=== PATIENT | male | born 1950 | race Caucasian/White ===

== ENCOUNTER 2020-01-23 13:38 | Emergency (ER) | payer MEDICARE, OTHER ==
[2020-01-23] MEDS ORDERED: methylPREDNISolone SUCCINATE 125 MG/2 ML VIAL IVP STA (13:44)
[2020-01-23] MEDS ORDERED: ALBUTEROL 1 PUFF INH STA (13:44)
--- NOTE | 2020-01-23 13:51 | ED Physician Documentation ---
PD HPI URI - Stated complaint Stated Complaint: SOA - Chief complaint Chief Complaint: Resp - History obtained from History obtained from: Patient, Family - History of Present Illness Timing - onset: How many weeks ago (2) Timing duration: Weeks (2) Timing details: Gradual onset Pain level max: 0 Pain level now: 0 Associated symptoms: Dry cough, Dyspnea, Other (wheezing). No: Fever, Chills, Ear pain, Nasal congestion, Rhinorrhea Contributing factors: Other (states has had increased difficulty breathing since he went hunting at the end of december. Albuterol not helping at home.). No: Sick contact Improves by: Rest Worsened by: Activity, Breathing Similar symptoms before: Diagnosis (COPD. quit smoking 1 year ago.) Recently seen: Not recently seen Review of Systems Ten Systems: 10 systems reviewed and negative Constitutional: denies: Fever, Chills Nose: denies: Rhinorrhea / runny nose, Congestion GI: denies: Vomiting, Diarrhea Skin: denies: Rash Musculoskeletal: denies: Neck pain, Back pain PD PAST MEDICAL HISTORY - Past Medical History Past Medical History: Yes Cardiovascular: Hypertension, High cholesterol, Other (AAA) Respiratory: COPD - Present Medications Home Medications: Ambulatory Orders Medication Instructions Recorded Confirmed Albuterol Sulf [Ventolin Hfa 1 - 2 puffs INH Q4HR PRN #1 inhaler 01/23/20 Inhaler] predniSONE [Deltasone] 10 mg PO [id number] #42 tab 01/23/20 - Allergies Allergies/Adverse Reactions: Allergies Allergy/AdvReac Type Severity Reaction Status Date / Time No Known Drug Allergies Allergy Verified 01/23/20 13:52 PD ED PE NORMAL - Vitals Vital signs reviewed: Yes - General General: Alert and oriented X 3, Well developed/nourished - HEENT HEENT: Moist mucous membranes, Pharynx benign - Neck Neck: Supple, no meningeal sign - Cardiac Cardiac: RRR, Strong equal pulses - Respiratory Respiratory: Other (diffuse wheezing, mild resp distress.) - Abdomen Abdomen: Soft, Non tender, Non distended - Derm Derm: Warm and dry - Extremities Extremities: No edema - Neuro Neuro: Alert and oriented X 3 - Psych Psych: Normal mood, Normal affect Results - Vitals Vitals: Vital Signs - 24 hr 01/23/20 13:45 Temperature 36.8 C Heart Rate 104 H Respiratory 20 Rate Blood Pressure 139/89 H O2 Saturation 92 Oxygen O2 Source Room air - Labs Labs: Laboratory Tests 01/23/20 01/23/20 01/23/20 14:08 14:08 14:08 WBC 7.7 RBC 4.82 Hgb 15.9 Hct 47.2 MCV 97.9 H MCH 33.0 H MCHC 33.7 RDW 12.3 Plt Count 299 MPV 9.2 Neut # (Auto) 3.7 Lymph # (Auto) 1.9 Levy # (Auto) 0.6 Eos # (Auto) 1.4 H Baso # (Auto) 0.1 Absolute Nucleated RBC 0.00 Band Neuts % (Manual) Not Reportable Abnorm Lymph % (Manual) Not Reportable Nucleated RBC % 0.0 Neutrophils # (Manual) Not Reportable Lymphocytes # (Manual) Not Reportable Monocytes # (Manual) Not Reportable Eosinophils # (Manual) Not Reportable Basophils # (Manual) Not Reportable Differential Comment Y Manual Slide Review Indicated WBC Morphology NORMAL APPEARANCE Platelet Estimate NORMAL (130-450,000) Platelet Morphology NORMAL APPEARANCE RBC Morph Micro Appear NORMAL APPEARANCE Sodium 131 L Potassium 3.0 L Chloride 87 L Carbon Dioxide 33 H Anion Gap 11.0 BUN 7 Creatinine 0.7 Estimated GFR (MDRD) 112 Glucose 121 H Calcium 9.5 Nasal Adenovirus (PCR) NOT DETECTED Nasal B. parapertussis DNA (PCR) NOT DETECTED Nasal Coronavir 229E PCR NOT DETECTED Nasal Coronavir HKU1 PCR NOT DETECTED Nasal Coronavir NL63 PCR NOT DETECTED Nasal Coronavir OC43 PCR NOT DETECTED Nasal Enterovir/Rhinovir PCR NOT DETECTED Nasal Influenza B PCR NOT DETECTED Nasal Influenza A PCR NOT DETECTED Nasal Parainfluen 1 PCR NOT DETECTED Nasal Parainfluen 2 PCR NOT DETECTED Nasal Parainfluen 3 PCR NOT DETECTED Nasal Parainfluen 4 PCR NOT DETECTED Nasal RSV (PCR) NOT DETECTED Nasal B.pertussis DNA PCR NOT DETECTED Nasal C.pneumoniae (PCR) NOT DETECTED Sean Human Metapneumo PCR NOT DETECTED Nasal M.pneumoniae (PCR) NOT DETECTED Nasal SARS-CoV-2 (PCR) NOT DETECTED - Rads (name of study) cxr Radiology: Prelim report reviewed, EMP read contemporaneously, See rad report (No acute cardiopulmonary disease process. ) PD MEDICAL DECISION MAKING - ED course Complexity details: reviewed results, re-evaluated patient, considered differential, d/w patient, d/w family ED course: Patient feels much better after albuterol, Solu-Medrol and prednisone. No significant lab abnormalities. No hypoxia. No respiratory distress. Negative Covid. Negative influenza. No pneumonia. Will place on steroid taper for home and refill his albuterol. Patient and family counseled regarding signs and symptoms for which I believe and urgent re-evaluation would be necessary. Patient with good understanding of and agreement to plan and is comfortable going home at this time This document was made in part using voice recognition software. While efforts are made to proofread this document, sound alike and grammatical errors may occur. Departure - Departure Disposition: Home, Self Care Clinical Impression: Wheezing Condition: Good Instructions: ED Wheezing Follow-Up: CHARLOTTE PURDY ARNP [Primary Care Provider] - Within 1 week Prescriptions: Albuterol Sulf [Ventolin Hfa Inhaler] 1 - 2 puffs INH Q4HR PRN #1 inhaler PRN Reason: Shortness Of Air/Wheezing predniSONE [Deltasone] 10 mg PO [id number] #42 tab Comments: Use the medications as prescribed. Return if you worsen. Follow-up with your doctor for further care.
[2020-01-23 14:29] LABS: BASOPHILS # (AUTO) 0.1 10^3/uL (0.0-0.1); BASOPHILS % (AUTO) 1.6 %; EOSINOPHILS # (AUTO) 1.4 10^3/uL (0.0-0.7); EOSINOPHILS % (AUTO) 17.8 %; HGB - HEMOGLOBIN 15.9 g/dL (14.0-18.0); LYMPHOCYTES # (AUTO) 1.9 10^3/uL (1.5-3.5); LYMPHOCYTES % (AUTO) 25.1 %; MEAN CORPUSCULAR HGB CONC 33.7 g/dL (32.0-36.0); MEAN CORPUSCULAR VOLUME 97.9 fL (80.0-94.0); MEAN PLATELET VOLUME 9.2 fL (7.4-11.4); MONOCYTES # (AUTO) 0.6 10^3/uL (0.0-1.0); MONOCYTES % (AUTO) 7.6 %; NEUTROPHILS # (AUTO) 3.7 10^3/uL (1.5-6.6); NEUTROPHILS % (AUTO) 47.6 %; PLT - PLATELET COUNT 299 10^3/uL (130-450); RED BLOOD COUNT 4.82 10^6/uL (4.70-6.10); RED CELL DISTRIBUTION WIDTH 12.3 % (12.0-15.0); WHITE BLOOD COUNT 7.7 x10^3/uL (4.8-10.8)
--- NOTE | 2020-01-23 14:33 | XRAY Report ---
PROCEDURE: Chest 1 View X-Ray INDICATIONS: chest pain TECHNIQUE: One view of the chest was acquired. COMPARISON: None FINDINGS: Surgical changes and devices: None. Lungs and pleura: No pleural effusions or pneumothorax. Lungs are clear. Mediastinum: Mediastinal contours appear normal. Heart size is normal. Bones and chest wall: No suspicious bony lesions. Overlying soft tissues appear unremarkable. IMPRESSION: No acute cardiopulmonary disease process. Reviewed by: Opal Cronin MD, PhD on 01/23/2020 2:31 PM PST Approved by: Opal Cronin MD, PhD on 01/23/2020 2:31 PM PST Station ID: [id number]
[2020-01-23 14:37] LABS: CALCIUM 9.5 mg/dL (8.5-10.3); CREATININE 0.7 mg/dL (0.6-1.2)
[2020-01-23 14:46] LABS: DIFFERENTIAL COMMENT Y; PLATELET ESTIMATE, MANUAL NORMAL (130-450,000) (NORMAL); PLATELET MORPHOLOGY NORMAL APPEARANCE (NORMAL); RBC MORPHOLOGY (MULTIPLE) NORMAL APPEARANCE (NORMAL)
[2020-01-23 15:46] LABS: C. PNEUMONIAE- RESP PCR PANEL NOT DETECTED
[2020-01-23 17:10] VITALS: BP 136/94
== END 2020-01-23 17:21 | disposition home or self-care (01) ==
LOC: ED 13:38
DX: R06.2 Wheezing (principal); J44.9 Chronic obstructive pulmonary disease, unspecified; Z87.891 Personal history of nicotine dependence; I10 Essential (primary) hypertension; Z20.828 Contact with and (suspected) exposure to other viral communicable diseases
CPT/HCPCS: 0202U; 36415; 71045; 80048; 85025; 94640; 99284

== ENCOUNTER 2022-07-27 22:00 | Outpatient (CLI) | payer MEDICARE, OTHER | END 2022-07-27 23:59 | disposition EMS.NT | LOC: EMS 22:00 | DX: Z03.89 Encounter for observation for other suspected diseases and conditions ruled out (principal) ==

== ENCOUNTER 2022-09-08 20:19 | Outpatient (CLI) | payer MEDICARE, OTHER | END 2022-09-08 20:20 | disposition critical access hospital (66) | LOC: EMS 20:19 | DX: R41.0 Disorientation, unspecified (principal); R27.8 Other lack of coordination; F10.10 Alcohol abuse, uncomplicated | CPT/HCPCS: A0425; A0429 ==

== ENCOUNTER 2022-09-08 20:31 | Emergency (ER) | payer MEDICARE, OTHER ==
[2022-09-08] MEDS ORDERED: TETANUS/DIPHTHERIA/PERTUSSIS 0.5 ML SYRINGE IM ONE (20:35)
--- NOTE | 2022-09-08 20:36 | ED Physician Documentation ---
PD HPI Fall - Stated complaint Stated Complaint: GLF - History obtained from History obtained from: Patient, EMS - Additional information Additional information: 72-year-old gentleman with history of coronary disease was drinking tonight. He recently lost his daughter. He fell, he does not remember falling, but reportedly EMS states that the heard a crash and went in the room and found him. He states he has no injuries and no pain. PD PAST MEDICAL HISTORY - Past Medical History Cardiovascular: Hypertension, High cholesterol, Other (AAA) Respiratory: COPD - Present Medications Home Medications: Ambulatory Orders Medication Instructions Recorded Confirmed Albuterol Sulf [Ventolin Hfa 1 - 2 puffs INH Q4HR PRN #1 inhaler 01/23/20 Inhaler] predniSONE [Deltasone] 10 mg PO [id number] #42 tab 01/23/20 - Allergies Allergies/Adverse Reactions: Allergies Allergy/AdvReac Type Severity Reaction Status Date / Time No Known Drug Allergies Allergy Verified 01/23/20 13:52 PD ED PE NORMAL - Vitals Vital signs reviewed: Yes - General General: Other (Intoxicated gentleman who smells of alcohol in no distress. Alert and oriented to person and place and events but not time) - HEENT HEENT: PERRL, EOMI (With significant nystagmus) - Neck Neck: No bony TTP (But maintained in a c-collar pending imaging given intoxication) - Cardiac Cardiac: RRR, No murmur - Respiratory Respiratory: No respiratory distress, Clear bilaterally - Abdomen Abdomen: Non tender - Back Back: No CVA TTP, No spinal TTP - Derm Derm: Normal color, Warm and dry - Extremities Extremities: Other (Small skin tear right lateral forearm, no tenderness or limited range of motion there. Remainder of extremities nontender with full range of motion.) - Neuro Eye Opening: Spontaneous Motor: Obeys Commands Verbal: Confused (Slight) GCS Score: 14 Results - Vitals Vitals: Vital Signs - 24 hr 09/08/22 09/08/22 09/09/22 20:38 22:41 01:36 Temperature 36.2 C L Heart Rate 72 85 89 Respiratory 16 18 16 Rate Blood Pressure 126/79 129/85 H 128/82 H O2 Saturation 100 93 95 09/09/22 09/09/22 09/09/22 02:38 04:00 04:40 Temperature Heart Rate 85 82 89 Respiratory 17 18 19 Rate Blood Pressure 128/84 H 110/71 124/72 O2 Saturation 95 91 L 95 09/09/22 09/09/22 06:00 08:03 Temperature Heart Rate 89 102 H Respiratory 18 18 Rate Blood Pressure 138/82 H 144/93 H O2 Saturation 91 L 94 Oxygen O2 Source Room air - Labs Labs: Laboratory Tests 09/08/22 09/08/22 09/08/22 20:46 20:46 20:46 WBC 9.3 RBC 4.40 L Hgb 14.6 Hct 41.1 L MCV 93.4 MCH 33.2 H MCHC 35.5 RDW 12.7 Plt Count 230 MPV 8.7 Neut # (Auto) 3.9 Lymph # (Auto) 4.1 H Lynn # (Auto) 0.9 Eos # (Auto) 0.3 Baso # (Auto) 0.1 Absolute Nucleated RBC 0.00 Nucleated RBC % 0.0 PT 11.6 INR 1.1 Sodium 128 L Potassium 2.4 L* Chloride 84 L Carbon Dioxide 31 Anion Gap 13.0 BUN 9 Creatinine 0.7 Estimated GFR (MDRD) 111 Glucose 111 H Calcium 8.6 Total Bilirubin 0.7 AST 27 ALT 27 Alkaline Phosphatase 86 Total Protein 7.9 Albumin 3.6 Globulin 4.3 H Albumin/Globulin Ratio 0.8 L Ethyl Alcohol 282.4 09/09/22 04:49 WBC RBC Hgb Hct MCV MCH MCHC RDW Plt Count MPV Neut # (Auto) Lymph # (Auto) Lynn # (Auto) Eos # (Auto) Baso # (Auto) Absolute Nucleated RBC Nucleated RBC % PT INR Sodium 130 L Potassium 2.8 L Chloride 91 L Carbon Dioxide 29 Anion Gap 10.0 BUN 8 Creatinine 0.6 Estimated GFR (MDRD) 133 Glucose 97 Calcium 8.2 L Total Bilirubin AST ALT Alkaline Phosphatase Total Protein Albumin Globulin Albumin/Globulin Ratio Ethyl Alcohol 87.9 - Rads (name of study) CT of the head and cervical spine are without acute traumatic injuries. He does have mild atrophy and chronic microvascular ischemic changes in the b Relevant Findings:: Final report received, EMP independent interpretation of test PD Medical Decision Making - ED course ED course: 72-year-old gentleman presents intoxicated with ground-level fall. The only obvious injury is a skin tear on the right forearm which was cleansed and dressed. Out of an abundance of caution he was sent for CT scans of the head and cervical spine. Labs were notable for significant hypokalemia at 2.4 with mild hyponatremia and a blood alcohol of 282 consistent with intoxication. I asked the nurse to place an IV, give him IV fluids, thiamine, and 4 potassium riders overnight. I spoke with his by phone and they plan to come pick him up in the morning. She does not drive. Care to the overnight emergency y sician at shift change pending sobriety and family in the morning. Departure - Departure Clinical Impression: Ground-level fall, Hypokalemia Alcohol intoxication Qualifiers: Complication of substance-induced condition: with delirium Qualified Code(s): F10.921 - Alcohol use, unspecified with intoxication delirium Skin tear of right forearm without complication Qualifiers: Encounter type: initial encounter Qualified Code(s): S51.811A - Laceration without foreign body of right forearm, initial encounter Condition: Good Record reviewed to determine appropriate education?: Yes Instructions: ED Alcohol Intoxication Comments: You were seen tonight for a fall after becoming significantly intoxicated on alcohol with a blood alcohol of 282. The only obvious injury was a skin tear on the right forearm. That just needs really soap and water once a day and a Band-Aid. Out of an abundance of caution we did CAT scans of your head and neck. Also your labs were notable for low potassium which is not uncommon when you have been drinking heavily, and this was replaced with IV potassium and your sodium was mildly low to you were given some sodium chloride. Call your doctor to arrange a follow-up appointment, make the next available appointment. In the interim, return anytime if worse or if new symptoms develop.
[2022-09-08 20:53] LABS: BASOPHILS # (AUTO) 0.1 10^3/uL (0.0-0.1); EOSINOPHILS # (AUTO) 0.3 10^3/uL (0.0-0.7); HCT - HEMATOCRIT 41.1 % (42.0-52.0); HGB - HEMOGLOBIN 14.6 g/dL (14.0-18.0); LYMPHOCYTES # (AUTO) 4.1 10^3/uL (1.5-3.5); MEAN CORPUSCULAR HEMOGLOBIN 33.2 pg (27.0-31.0); MEAN CORPUSCULAR HGB CONC 35.5 g/dL (32.0-36.0); MEAN CORPUSCULAR VOLUME 93.4 fL (80.0-94.0); MEAN PLATELET VOLUME 8.7 fL (7.4-11.4); MONOCYTES # (AUTO) 0.9 10^3/uL (0.0-1.0); MONOCYTES % (AUTO) 9.5 %; NEUTROPHILS # (AUTO) 3.9 10^3/uL (1.5-6.6); NEUTROPHILS % (AUTO) 42.3 %; PLT - PLATELET COUNT 230 10^3/uL (130-450); RED CELL DISTRIBUTION WIDTH 12.7 % (12.0-15.0); WHITE BLOOD COUNT 9.3 x10^3/uL (4.8-10.8)
[2022-09-08 20:58] LABS: INR 1.1 (0.8-1.2); PT - PROTHROMBIN TIME 11.6 secs (9.9-12.6)
[2022-09-08 21:06] LABS: ALBUMIN 3.6 g/dL (3.2-5.5); ALBUMIN/GLOBULIN RATIO 0.8 (1.0-2.2); BILIRUBIN,TOTAL 0.7 mg/dL (0.2-1.0); CALCIUM 8.6 mg/dL (8.5-10.3); CREATININE 0.7 mg/dL (0.6-1.2); ETOH - ETHANOL 282.4 mg/dL; TOTAL PROTEIN 7.9 g/dL (6.7-8.2)
[2022-09-08 21:07] LABS: POTASSIUM 2.4 mmol/L (3.5-5.0)
[2022-09-08] MEDS ORDERED: SODIUM CHLORIDE 0.9% 1,000 ML IV STA (21:10)
[2022-09-08] MEDS ORDERED: POTASSIUM CHLOR 10 MEQ/100 ML 10 MEQ/100 ML BAG IV STA ×4 (21:11→21:12)
[2022-09-08] MEDS ORDERED: THIAMINE INJ 100 MG in SODIUM CHLORIDE 0.9% 50 ML IV STA (21:14)
--- NOTE | 2022-09-08 21:21 | CT Report ---
PROCEDURE: HEAD WO INDICATIONS: Possible head injury, intoxicated TECHNIQUE: Noncontrast 4.5 mm thick angled axial sections acquired from the foramen magnum to the vertex. For r adiation dose reduction, the following was used: automated exposure control, adjustment of mA and/or kV according to patient size. COMPARISON: CT cervical spine 09/08/2022 FINDINGS: Image quality: Excellent. The ventricular system and cortical sulci demonstrate atrophy, consistent for patient's stated age. There are areas of hypodensity in the periventricular and subcortical white matter. There is no acut e intra or extra-axial fluid collection. No acute hemorrhage, mass lesion or midline shift. Brainst em is unremarkable. Globes are symmetrical. Sinuses are aerated. Osseous structures are intact. IMPRESSION: 1. No acute intracranial process. 2. Mild atrophy and chronic microvascular ischemic changes. Mild to moderate Reviewed by: Garima Campoverde MD on 09/08/2022 9:20 PM PDT Approved by: Garima Campoverde MD on 09/08/2022 9:20 PM PDT Station ID: [id number]
--- NOTE | 2022-09-08 21:22 | CT Report ---
PROCEDURE: CERVICAL SPINE WO INDICATIONS: Possible head injury, intoxicated TECHNIQUE: Noncontrast 3 mm thick sections acquired from the skull base to the T4 level. Sagittal and coronal r eformats were then constructed. For radiation dose reduction, the following was used: automated exp osure control, adjustment of mA and/or kV according to patient size. COMPARISON: None. FINDINGS: Image quality: Excellent. Bones: No fractures or dislocations. Visualized superior ribs are intact. Multilevel degenerative changes. Soft tissues: Prevertebral soft tissues are normal in thickness. No paravertebral hematomas. No ap ical pneumothoraces. IMPRESSION: No visualized fracture. Reviewed by: Garima Campoverde MD on 09/08/2022 9:21 PM PDT Approved by: Garima Campoverde MD on 09/08/2022 9:21 PM PDT Station ID: [id number]
[2022-09-08] MEDS ORDERED: THIAMINE 100 MG/1 ML 2 ML MDV ONE ×2 (21:27→21:48)
[2022-09-09 05:17] LABS: CALCIUM 8.2 mg/dL (8.5-10.3); CREATININE 0.6 mg/dL (0.6-1.2); ETOH - ETHANOL 87.9 mg/dL; POTASSIUM 2.8 mmol/L (3.5-5.0)
[2022-09-09] MEDS ORDERED: POTASSIUM BICARB 25 MEQ TABLET PO STA ×2 (05:22→09:33)
[2022-09-09] MEDS ORDERED: POTASSIUM CHLOR 10 MEQ/100 ML 10 MEQ/100 ML BAG IV STA (05:23)
[2022-09-09 08:06] VITALS: BP 144/93
--- NOTE | 2022-09-09 09:38 | ED Physician Documentation ---
ED Addendum - Addendum Addendum: 72-year-old male highly intoxicated presented to the emergency department with a fall last night he has metabolized and is now ready to be discharged home in the care of family members. He did have low potassium he was administered potassium by vein and orally we have added additional potassium here this morning right before discharge and patient is instructed to increase potassium in his diet. 09/09/22 Impression: GLF, alcohol intoxication, hypokalemia, skin tear right forearm. Plan: metabolism, potassium supplementation, home with family, followup with NICOLE.
== END 2022-09-09 09:48 | disposition home or self-care (01) ==
LOC: EDUNIT# → ED 20:31
DX: S51.811A Laceration without foreign body of right forearm, initial encounter (principal); W18.30XA Fall on same level, unspecified, initial encounter; E87.6 Hypokalemia; F10.121 Alcohol abuse with intoxication delirium; Y90.8 Blood alcohol level of 240 mg/100 ml or more; I10 Essential (primary) hypertension; E78.00 Pure hypercholesterolemia, unspecified; J44.9 Chronic obstructive pulmonary disease, unspecified; Z23 Encounter for immunization
CPT/HCPCS: 36415; 70450; 72125; 80048; 80053; 85025; 85610; 90471; 90715; 96365; 96366; 96375; 99284; A9270; G0480; J3411; 80320

== ENCOUNTER 2022-11-14 23:16 | Outpatient (CLI) | payer MEDICARE, OTHER | END 2022-11-14 23:59 | disposition EMS.NT | LOC: EMS 23:16 | DX: Z03.89 Encounter for observation for other suspected diseases and conditions ruled out (principal) ==

== ENCOUNTER 2023-08-01 14:15 | Inpatient (IN) | payer MEDICARE, OTHER ==
--- NOTE | 2023-08-01 14:24 | ED Physician Documentation ---
History of Present Illness - Stated complaint Stated Complaint: FAST HR - Additonal information Additional information: 73-year-old male presenting the emergency department with chief complaint of fatigue. Excessively fatigued for the last few days with increased swelling in his lower EXTR extremities. Reports chronic cough and chronic shortness of breath. EMS found him to be in atrial fibrillation. He endorses for history of coronary artery disease with 6 stents. Denies any history of heart failure. Review of Systems Constitutional: reports: Fatigue. denies: Fever Eyes: denies: Loss of vision Ears: denies: Loss of hearing Nose: denies: Rhinorrhea / runny nose Throat: denies: Dental pain / toothache Cardiac: reports: Palpitations Respiratory: reports: Dyspnea, Cough GI: denies: Abdominal Pain, Nausea, Vomiting, Constipation : reports: Dysuria Skin: reports: Rash Musculoskeletal: reports: Neck pain Neurologic: reports: Generalized weakness PD PAST MEDICAL HISTORY - Past Medical History Cardiovascular: Hypertension, High cholesterol, Other (AAA) Respiratory: COPD - Present Medications Home Medications: Ambulatory Orders Medication Instructions Recorded Confirmed Albuterol Sulf [Ventolin Hfa 1 - 2 puffs INH Q4HR PRN #1 inhaler 01/23/20 Inhaler] predniSONE [Deltasone] 10 mg PO [id number] #42 tab 01/23/20 Aspirin EC [Ecotrin] 81 mg PO DAILY 08/01/23 Atorvastatin [Lipitor] 10 mg PO HS 08/01/23 Cetirizine [ZyrTEC] 10 mg PO DAILY 08/01/23 Fluticasone Propionate 1 spray NICOLE DAILY 08/01/23 NIFEdipine [Nifedipine ER] 90 mg PO DAILY 08/01/23 Omeprazole 40 mg PO BID 08/01/23 Potassium Chloride 10 meq PO DAILY 08/01/23 hydroCHLOROthiazide [Hydrodiuril] 12.5 mg PO DAILY 08/01/23 - Allergies Allergies/Adverse Reactions: Allergies Allergy/AdvReac Type Severity Reaction Status Date / Time No Known Drug Allergies Allergy Verified 08/01/23 14:36 PD ED PE NORMAL - General General: Alert and oriented X 3, No acute distress, Well developed/nourished - HEENT HEENT: Atraumatic, PERRL, EOMI, Ears normal, Moist mucous membranes, Pharynx benign - Neck Neck: Supple, no meningeal sign, No bony TTP, No adenopathy, Thyroid normal, No JVD - Cardiac Cardiac: Other (Irregularly irregular) - Respiratory Respiratory: Other (Increased work of breathing) - Abdomen Abdomen: Normal bowel sounds, Non tender, Other (Large periumbilical hernia, nontender and freely mobile) Results - Vitals Vitals: Vital Signs - 24 hr 08/01/23 08/01/23 08/01/23 14:23 14:36 15:05 Temperature 36.3 C L Heart Rate 140 H 137 H 140 H Respiratory 36 H 30 H Rate Blood Pressure 123/113 H 118/96 H O2 Saturation 76 L 86 L If not protocol 16 : Oxygen Flow, liters/minute 08/01/23 08/01/23 08/01/23 15:06 15:30 16:00 Temperature Heart Rate 120 H 110 H 123 H Respiratory 26 H 24 27 H Rate Blood Pressure 104/85 H 103/91 H 114/92 H O2 Saturation 26 L 89 L If not protocol : Oxygen Flow, liters/minute 08/01/23 08/01/23 16:09 16:30 Temperature Heart Rate 112 H 129 H Respiratory 21 Rate Blood Pressure 123/103 H O2 Saturation 89 L If not protocol : Oxygen Flow, liters/minute Oxygen O2 Source BIPAP - Labs Labs: Laboratory Tests 08/01/23 08/01/23 08/01/23 14:48 14:48 14:48 WBC 7.5 RBC 4.59 L Hgb 14.4 Hct 45.2 MCV 98.5 H MCH 31.4 H MCHC 31.9 L RDW 15.2 H Plt Count 209 MPV 10.6 Neut # (Auto) 5.3 Lymph # (Auto) 1.3 L [place] # (Auto) 0.7 Eos # (Auto) 0.1 Baso # (Auto) 0.1 Absolute Nucleated RBC 0.00 Nucleated RBC % 0.0 PT 15.2 H INR 1.4 H Bld Gas Analysis Time Sample Site ABG pH ABG pCO2 ABG pO2 ABG HCO3 ABG Total CO2 ABG O2 Saturation ABG Base Excess Harvinder Test O2 Delivery Device FiO2 EPAP IPAP Sodium 139 Potassium 3.7 Chloride 98 L Carbon Dioxide 33 H Anion Gap 8.0 BUN 31 H Creatinine 0.8 Estimated GFR (MDRD) 95 Glucose 101 Calcium 9.3 Magnesium 1.8 Total Bilirubin 0.8 AST 25 ALT 36 Alkaline Phosphatase 74 Troponin I High Sens B-Natriuretic Peptide Total Protein 7.2 Albumin 3.7 Globulin 3.5 Albumin/Globulin Ratio 1.1 Lipase 28 Urine Color Urine Clarity Urine pH Ur Specific [place] Urine Protein Urine Glucose (UA) Urine Ketones Urine Occult Blood Urine Nitrite Urine Bilirubin Urine Urobilinogen Ur Leukocyte Esterase Ur Microscopic Review Urine Culture Comments Nasal Adenovirus (PCR) Nasal B. parapertussis DNA (PCR) Nasal Coronavir 229E PCR Nasal Coronavir HKU1 PCR Nasal Coronavir NL63 PCR Nasal Coronavir OC43 PCR Nasal Enterovir/Rhinovir PCR Nasal Influenza B PCR Nasal Influenza A PCR Nasal Parainfluen 1 PCR Nasal Parainfluen 2 PCR Nasal Parainfluen 3 PCR Nasal Parainfluen 4 PCR Nasal RSV (PCR) Nasal B.pertussis DNA PCR Nasal C.pneumoniae (PCR) Nicole Human Metapneumo PCR Nasal M.pneumoniae (PCR) Nasal SARS-CoV-2 (PCR) Urine Opiates Screen Ur Buprenorphine Scrn Ur Oxycodone Screen Urine Methadone Screen Ur Barbiturates Screen Ur Tricyclics Screen Ur Phencyclidine Scrn Ur Amphetamine Screen U Methamphetamines Scrn U Benzodiazepines Scrn Urine Cocaine Screen U Cannabinoids Screen Ur Drug Screen Comment Ethyl Alcohol < 10.0 08/01/23 08/01/23 08/01/23 14:48 14:48 15:52 WBC RBC Hgb Hct MCV MCH MCHC RDW Plt Count MPV Neut # (Auto) Lymph # (Auto) [place] # (Auto) Eos # (Auto) Baso # (Auto) Absolute Nucleated RBC Nucleated RBC % PT INR Bld Gas Analysis Time 1600 Sample Site LEFT BRACHIAL ABG pH 7.39 ABG pCO2 53 H ABG pO2 63 L ABG HCO3 31.4 H ABG Total CO2 33.0 H ABG O2 Saturation 91 L ABG Base Excess 5.0 H Harvinder Test NOT APPLICABLE O2 Delivery Device BiPAP FiO2 40.00 EPAP 4 IPAP 8 Sodium Potassium Chloride Carbon Dioxide Anion Gap BUN Creatinine Estimated GFR (MDRD) Glucose Calcium Magnesium Total Bilirubin AST ALT Alkaline Phosphatase Troponin I High Sens 3.1 B-Natriuretic Peptide 597 H Total Protein Albumin Globulin Albumin/Globulin Ratio Lipase Urine Color Urine Clarity Urine pH Ur Specific [place] Urine Protein Urine Glucose (UA) Urine Ketones Urine Occult Blood Urine Nitrite Urine Bilirubin Urine Urobilinogen Ur Leukocyte Esterase Ur Microscopic Review Urine Culture Comments Nasal Adenovirus (PCR) Nasal B. parapertussis DNA (PCR) Nasal Coronavir 229E PCR Nasal Coronavir HKU1 PCR Nasal Coronavir NL63 PCR Nasal Coronavir OC43 PCR Nasal Enterovir/Rhinovir PCR Nasal Influenza B PCR Nasal Influenza A PCR Nasal Parainfluen 1 PCR Nasal Parainfluen 2 PCR Nasal Parainfluen 3 PCR Nasal Parainfluen 4 PCR Nasal RSV (PCR) Nasal B.pertussis DNA PCR Nasal C.pneumoniae (PCR) Nicole Human Metapneumo PCR Nasal M.pneumoniae (PCR) Nasal SARS-CoV-2 (PCR) Urine Opiates Screen Ur Buprenorphine Scrn Ur Oxycodone Screen Urine Methadone Screen Ur Barbiturates Screen Ur Tricyclics Screen Ur Phencyclidine Scrn Ur Amphetamine Screen U Methamphetamines Scrn U Benzodiazepines Scrn Urine Cocaine Screen U Cannabinoids Screen Ur Drug Screen Comment Ethyl Alcohol 08/01/23 08/01/23 15:58 16:00 WBC RBC Hgb Hct MCV MCH MCHC RDW Plt Count MPV Neut # (Auto) Lymph # (Auto) [place] # (Auto) Eos # (Auto) Baso # (Auto) Absolute Nucleated RBC Nucleated RBC % PT INR Bld Gas Analysis Time Sample Site ABG pH ABG pCO2 ABG pO2 ABG HCO3 ABG Total CO2 ABG O2 Saturation ABG Base Excess Harvinder Test O2 Delivery Device FiO2 EPAP IPAP Sodium Potassium Chloride Carbon Dioxide Anion Gap BUN Creatinine Estimated GFR (MDRD) Glucose Calcium Magnesium Total Bilirubin AST ALT Alkaline Phosphatase Troponin I High Sens B-Natriuretic Peptide Total Protein Albumin Globulin Albumin/Globulin Ratio Lipase Urine Color DARK YELLOW Urine Clarity CLEAR Urine pH 6.0 Ur Specific [place] 1.020 Urine Protein TRACE Urine Glucose (UA) NEGATIVE Urine Ketones NEGATIVE Urine Occult Blood NEGATIVE Urine Nitrite NEGATIVE Urine Bilirubin NEGATIVE Urine Urobilinogen 1 (NORMAL) Ur Leukocyte Esterase NEGATIVE Ur Microscopic Review NOT INDICATED Urine Culture Comments NOT INDICATED Nasal Adenovirus (PCR) NOT DETECTED Nasal B. parapertussis DNA (PCR) NOT DETECTED Nasal Coronavir 229E PCR NOT DETECTED Nasal Coronavir HKU1 PCR NOT DETECTED Nasal Coronavir NL63 PCR NOT DETECTED Nasal Coronavir OC43 PCR NOT DETECTED Nasal Enterovir/Rhinovir PCR NOT DETECTED Nasal Influenza B PCR NOT DETECTED Nasal Influenza A PCR NOT DETECTED Nasal Parainfluen 1 PCR NOT DETECTED Nasal Parainfluen 2 PCR NOT DETECTED Nasal Parainfluen 3 PCR NOT DETECTED Nasal Parainfluen 4 PCR NOT DETECTED Nasal RSV (PCR) NOT DETECTED Nasal B.pertussis DNA PCR NOT DETECTED Nasal C.pneumoniae (PCR) NOT DETECTED Nicole Human Metapneumo PCR NOT DETECTED Nasal M.pneumoniae (PCR) NOT DETECTED Nasal SARS-CoV-2 (PCR) NOT DETECTED Urine Opiates Screen NEGATIVE Ur Buprenorphine Scrn NEGATIVE Ur Oxycodone Screen NEGATIVE Urine Methadone Screen NEGATIVE Ur Barbiturates Screen NEGATIVE Ur Tricyclics Screen NEGATIVE Ur Phencyclidine Scrn NEGATIVE Ur Amphetamine Screen NEGATIVE U Methamphetamines Scrn NEGATIVE U Benzodiazepines Scrn NEGATIVE Urine Cocaine Screen NEGATIVE U Cannabinoids Screen NEGATIVE Ur Drug Screen Comment CUTOFF CONC BELOW: Ethyl Alcohol PD Medical Decision Making - ED course ED course: Patient 73-year-old male with past medical significant for coronary artery disease presenting with rapid heart rate, shortness of breath. Tachypneic, tachycardic on arrival to the emergency department. Initial EKG demonstrates atrial fibrillation with rapid ventricular response. This appears to be a new diagnosis per patient. Oxygen saturations were difficult to obtain accurately on the patient however he appeared to have persistent low-level hypoxia. He notably had significant crackles in his lower lung bases as well as significant amount of edema in his lower extremities. Overall his clinical presentation was most consistent with acute heart failure with pulmonary congestion versus edema. He was escalated to BiPAP in the emergency department for work of breathing and adequate oxygen support. Oxygen saturations remained difficult to obtain accurately however when they were obtained he would however at approximately 88 to 92%. His blood gas similarly demonstrated a low level hypoxia with oxygen saturation 91%. He was otherwise mentating well in the emergency department with no emergent or identified need for intubation found. His troponin here is negative his beta natruretic is [place] mildly elevated. He was given doses of Cardizem with significant improvement in his heart rate. His care was discussed with the hospitalist service with CT PE pending for further evaluation of underlying causes of his acute respiratory failure, heart failure, A-fib with RVR. Departure - Departure Disposition: 66 [facility] DC/Xfer Clinical Impression: Atrial fibrillation with RVR Respiratory failure Qualifiers: Chronicity: acute Respiratory failure complication: hypoxia Qualified Code(s): J96.01 - Acute respiratory failure with hypoxia Discharge Date/Time: 08/01/23 17:45
[2023-08-01] MEDS: diltiaZEM INJ 5 MG/ML VIAL IVP PRN (14:41)
[2023-08-01 14:53] LABS: BASOPHILS # (AUTO) 0.1 10^3/uL (0.0-0.1); BASOPHILS % (AUTO) 1.1 %; EOSINOPHILS # (AUTO) 0.1 10^3/uL (0.0-0.7); EOSINOPHILS % (AUTO) 1.9 %; HCT - HEMATOCRIT 45.2 % (42.0-52.0); HGB - HEMOGLOBIN 14.4 g/dL (14.0-18.0); LYMPHOCYTES # (AUTO) 1.3 10^3/uL (1.5-3.5); LYMPHOCYTES % (AUTO) 17.7 %; MEAN CORPUSCULAR HEMOGLOBIN 31.4 pg (27.0-31.0); MEAN CORPUSCULAR HGB CONC 31.9 g/dL (32.0-36.0); MEAN CORPUSCULAR VOLUME 98.5 fL (80.0-94.0); MEAN PLATELET VOLUME 10.6 fL (7.4-11.4); MONOCYTES # (AUTO) 0.7 10^3/uL (0.0-1.0); MONOCYTES % (AUTO) 9.2 %; NEUTROPHILS # (AUTO) 5.3 10^3/uL (1.5-6.6); NEUTROPHILS % (AUTO) 69.8 %; PLT - PLATELET COUNT 209 10^3/uL (130-450); RED BLOOD COUNT 4.59 10^6/uL (4.70-6.10); RED CELL DISTRIBUTION WIDTH 15.2 % (12.0-15.0); WHITE BLOOD COUNT 7.5 x10^3/uL (4.8-10.8)
[2023-08-01 14:59] LABS: INR 1.4 (0.8-1.2); PT - PROTHROMBIN TIME 15.2 secs (9.9-12.6)
[2023-08-01] MEDS: NITROGLYCERIN 2% PASTE TOP STA (15:06)
[2023-08-01 15:10] LABS: ALBUMIN 3.7 g/dL (3.2-5.5); ALBUMIN/GLOBULIN RATIO 1.1 (1.0-2.2); ALKALINE PHOSPHATASE 74 IU/L (42-121); ALT ALANINE AMINOTRANSFERASE 36 IU/L (10-60); AST ASPARTATE AMINOTRANSFERASE 25 IU/L (10-42); BILIRUBIN,TOTAL 0.8 mg/dL (0.2-1.0); BUN - BLOOD UREA NITROGEN 31 mg/dL (6-20); CALCIUM 9.3 mg/dL (8.5-10.3); CARBON DIOXIDE - CO2 33 mmol/L (21-32); CHLORIDE 98 mmol/L (101-111); CREATININE 0.8 mg/dL (0.6-1.3); ETOH - ETHANOL < 10.0 mg/dL; GFR - MDRD 95 (>89); GLUCOSE 101 mg/dL (74-104); LIPASE 28 U/L (11-82); MAGNESIUM 1.8 mg/dL (1.7-2.3); POTASSIUM 3.7 mmol/L (3.5-4.5); SODIUM 139 mmol/L (135-145); TOTAL PROTEIN 7.2 g/dL (6.4-8.9)
--- NOTE | 2023-08-01 15:10 | XRAY Report ---
PROCEDURE: Chest 1V INDICATIONS: SOB TECHNIQUE: One view of the chest was acquired. COMPARISON: 01/23/2020. FINDINGS: Surgical changes and devices: None. Lungs and pleura: No pleural effusions or pneumothorax. Extensive bilateral pulmonary infiltrates Mediastinum: Mediastinal contours appear normal. Cardiomegaly. Bones and chest wall: No suspicious bony lesions. Overlying soft tissues appear unremarkable. IMPRESSION: Diffuse alveolar pulmonary edema versus bilateral pneumonia. Reviewed by: Gonsalo Whalen MD on 08/01/2023 3:09 PM PDT Approved by: Gonsalo Whalen MD on 08/01/2023 3:09 PM PDT Station ID: [id number]
[2023-08-01] MEDS: FUROSEMIDE 40 MG/4 ML VIAL IVP STA (15:29)
[2023-08-01 16:02] LABS: ABG HCO3 31.4 mmol/L (22.0-26.0); ABG OXYGEN SATURATION 91 % (94-98); ABG PCO2 53 mmHg (34-45); ABG PH 7.39 (7.35-7.45); ABG PO2 63 mmHg (80-100)
[2023-08-01] MEDS ORDERED: iohexoL-300 100 ML VIAL ONE (16:11)
[2023-08-01 16:15] LABS: BILIRUBIN,URINE NEGATIVE (NEGATIVE); GLUCOSE, URINE (UA) NEGATIVE (NEGATIVE); KETONES,URINE (UA) NEGATIVE (NEGATIVE); LEUKOCYTE ESTERASE, URINE NEGATIVE (NEGATIVE); NITRITE,URINE NEGATIVE (NEGATIVE); OCCULT BLOOD,URINE NEGATIVE (NEGATIVE); PROTEIN,URINE TRACE mg/dL (NEGATIVE); UROBILINOGEN,URINE 1 (NORMAL) E.U./dL (NORMAL)
[2023-08-01] MEDS: AZITHROMYCIN INJ 500 MG in SODIUM CHLORIDE 0.9% 250 ML IV STA (16:15)
[2023-08-01] MEDS: cefTRIAXone 1 GM VIAL IVP STA (16:15)
[2023-08-01 16:21] LABS: CLARITY,URINE CLEAR (CLEAR)
[2023-08-01 16:28] LABS: AMPHETAMINE SCREEN,URINE NEGATIVE (NEGATIVE); BARBITURATE SCREEN,UR NEGATIVE (NEGATIVE); BENZODIAZEPINES SCREEN, URINE NEGATIVE (NEGATIVE); BUPRENORPHINE SCREEN, URINE NEGATIVE (NEGATIVE); COCAINE SCREEN URINE NEGATIVE (NEGATIVE); METHADONE SCREEN, URINE NEGATIVE (NEGATIVE); METHAMPHETAMINES SCREEN, URINE NEGATIVE (NEGATIVE); OPIATE SCREEN, URINE NEGATIVE (NEGATIVE); OXYCODONE SCREEN, URINE NEGATIVE (NEGATIVE); THC CANNABINOID SCREEN, URINE NEGATIVE (NEGATIVE); TRICYCLIC ANTIDEPRESSANT,URINE NEGATIVE (NEGATIVE)
[2023-08-01] MEDS ORDERED: ACETAMINOPHEN 325 MG TABLET PO PRN (16:34)
[2023-08-01] MEDS ORDERED: ONDANSETRON 4 MG/2 ML VIAL IVP PRN (16:34)
[2023-08-01] MEDS ORDERED: PROMETHAZINE 25 MG/1 ML VIAL IM PRN (16:34)
[2023-08-01] MEDS ORDERED: ONDANSETRON ODT 4 MG TABLET TL PRN (16:34)
[2023-08-01 17:04] LABS: B. PARAPERTUSSIS- RESP PCR PAN NOT DETECTED; B. PERTUSSIS- RESP PCR PANEL NOT DETECTED; C. PNEUMONIAE- RESP PCR PANEL NOT DETECTED; CORONAVIRUS 229E-RESP PCR NOT DETECTED; CORONAVIRUS HKU1-RESP PCR NOT DETECTED; CORONAVIRUS NL63-RESP PCR NOT DETECTED; CORONAVIRUS OC43-RESP PCR NOT DETECTED; HUMAN METAPNEUMOVIRUS NOT DETECTED; INFLUENZA A- RESP PCR PANEL NOT DETECTED; INFLUENZA B - RESP PCR PANEL NOT DETECTED; M. PNEUMONIAE- RESP PCR PANEL NOT DETECTED; PARAINFLUENZA VIRUS 1 NOT DETECTED; PARAINFLUENZA VIRUS 2 NOT DETECTED; PARAINFLUENZA VIRUS 3 NOT DETECTED; PARAINFLUENZA VIRUS 4 NOT DETECTED; RHINOVIRUS/ENTEROVIRUS NOT DETECTED; RSV- RESP PCR PANEL NOT DETECTED; SARS-CoV-2 -RESP PCR PANEL NOT DETECTED
[2023-08-01] MEDS: iohexoL-300 100 ML VIAL IVP ONE (17:25)
--- NOTE | 2023-08-01 17:39 | CT Report ---
PROCEDURE: Angio Chest INDICATIONS: Flash pulm edema, cp CONTRAST: Omni 300 80ml TECHNIQUE: After the administration of intravenous contrast, 2 mm axial images were acquired from the pulmonary apices to the posterior costophrenic angles during the arterial phase. In addition, 1 mm lung kernel and 5 mm soft tissue kernel reconstructions were performed. 3-dimensional coronal oblique maximum int ensity projection (MIP) reformats, 8 mm axial MIP, and 5 mm coronal and sagittal MPR reformats were t hen performed through the thorax. For radiation dose reduction, the following was used: automated exp osure control, adjustment of mA and/or kV according to patient size. COMPARISON: CXR 08/01/2023, 01/23/2020. FINDINGS: Image quality: Excellent. Large vessels: No filling defects within the opacified pulmonary arteries, accounting for motion and contrast timing. No evidence of acute aortic syndrome or aortic aneurysm. Lungs and pleura: Moderate bilateral pleural effusions. No pneumothorax. Moderate emphysematous lee ge. Right lower lobe compressive atelectasis. Scattered opacity most pronounced in the left lung. No mass identified. Mediastinum: Heart size is normal. No pericardial effusion. No large vessel abnormality. No mediastin al adenopathy by size criteria. Chest wall and lower neck: Thyroid is unremarkable. No axillary or supraclavicular adenopathy by size . Bones: No aggressive osseous abnormality. Scoliosis. T11 and vertebroplasty. T10 and T12 compression fractures. Upper Abdomen: Abdominal aorta stent. Renal artery stents. IMPRESSION: 1. No pulmonary embolism. 2. Moderate bilateral pleural effusions. 3. Airspace opacity most pronounced in the left lung. Suspicious for pneumonia. Pulmonary edema could have a similar appearance. Recommend follow-up to resolution. Reviewed by: Rachid Lopes MD on 08/01/2023 5:38 PM PDT Approved by: Rachid Lopes MD on 08/01/2023 5:38 PM PDT Station ID: [id number]
[2023-08-01] MEDS: methylPREDNISolone SUCCINATE 40 MG/ML VIAL IVP SCH (17:45)
[2023-08-01] MEDS: SODIUM CHLORIDE FLUSH 0.9% 10 ML SYRINGE IVP SCH (17:48)
[2023-08-01] MEDS: FUROSEMIDE 20 MG/2 ML VIAL IVP SCH (17:48)
[2023-08-01] MEDS: diltiaZEM INJ 125 MG in DEXTROSE 5% 100 ML IV SCH (18:45)
--- NOTE | 2023-08-01 18:55 | HISTORY & PHYSICAL EXAMINATION ---
Chief Complaint - Chief Complaint Chief Complaint: Shortness of breath History of Present Illness - Admitted From Admitted From:: ED - History of Present Illness HPI Comment/Other: 73yo male reports that morning of 07/31 he woke-up as usual but while drinking his coffee he "felt off", weak, had SOB while sitting which typically only occurs with activity and his noticed and called EMS. Pt said "they were asking to many questions" and felt overwhelmed and EMS arrived. Pt remembers all events that occurred until present. He also reports lower extremities b/l more swollen than usual x2-3 weeks, wears compression socks in the day, swelling is typically down in PM, but were very swollen at wake-up on day of admission. History - Past Medical History Cardiovascular: reports: Hypertension, High cholesterol, Coronary artery disease, Other (AAA) Respiratory: reports: COPD, Shortness of breath Neuro: denies: Headaches, Migraines GI: reports: GERD (ocasionally with certain foods) : reports: Nocturia (2-3x night). denies: Kidney stones HEENT: reports: Other (had cataracts removed x1.5 yrs). 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 3 children, 1 daughter passed ~1 yrs ago d/t complication with DM and e. coli, 1 daughter in [place] works for [employer]. Living arrangement: At home Living Situation: With spouse/s.o. (lives with of 50 yrs and their 2 dogs (Shital & Rosaura)) - Substance History Use: Uses substance without health or social issues: NONE (Pt reports quitting ETOH on MAR 12, 2023 & quit cigarette smoking ~8yrs ago w/51 yr, 2-3ppd hx) Abuse: Recurrent use of substance despite neg consequences: NONE Tobacco Details: Cigarettes - POLST Patient has POLST: No POLST Status: DNR Meds/Allgy - Home Medications Home Medications: Ambulatory Orders Medication Instructions Recorded Confirmed Albuterol Sulf [Ventolin Hfa 1 - 2 puffs INH Q4HR PRN #1 inhaler 01/23/20 08/02/23 Inhaler] Aspirin EC [Ecotrin] 81 mg PO DAILY 08/01/23 08/02/23 Atorvastatin [Lipitor] 10 mg PO HS 08/01/23 08/02/23 Cetirizine [ZyrTEC] 10 mg PO DAILY 08/01/23 08/02/23 Fluticasone Propionate 2 spray NICOLE DAILY PRN 08/01/23 08/02/23 NIFEdipine [Nifedipine ER] 90 mg PO DAILY 08/01/23 08/02/23 Omeprazole 40 mg PO BID 08/01/23 08/02/23 Potassium Chloride 10 meq PO DAILY 08/01/23 08/02/23 hydroCHLOROthiazide [Hydrodiuril] 12.5 mg PO DAILY 08/01/23 08/02/23 Ascorbic Acid [Vitamin C] 1,000 mg PO DAILY 08/02/23 08/02/23 Cholecalciferol (Vitamin D3) 50 mcg PO DAILY 08/02/23 08/02/23 [Vitamin D3] Cyanocobalamin (Vitamin B-12) 1,000 mcg PO DAILY 08/02/23 08/02/23 [Vitamin B-12] Fluticasone Propion/Salmeterol 1 puffs INH BID 08/02/23 08/02/23 [Wixela 500-50 Inhub] Folic Acid 0.4 mg PO DAILY 08/02/23 08/02/23 Multivitamin [Theragran] 1 each PO DAILY 08/02/23 08/02/23 - Allergies Allergies/Adverse Reactions: Allergies Allergy/AdvReac Type Severity Reaction Status Date / Time No Known Drug Allergies Allergy Verified 08/01/23 14:36 Review of Systems - Constitutional Constitutional: reports: Fatigue, Weakness. denies: Fever - Eyes Eyes: denies: Vision loss - Ears, Nose & Throat Ears, Nose & Throat: reports: Other (seasonal allergies, mild). denies: Sore throat - Cardiovascular Cariovascular: reports: Exertional dyspnea, Orthopnea (few times a month). denies: Chest pain - Respiratory Respiratory: reports: Cough, Sputum production (xlast few months ("white/ta nnish" in color)), Orthopnea (few times a month), SOB with exertion - Gastrointestinal Gastrointestinal: denies: Abdominal pain, Constipation, Diarrhea, Black stools, Nausea, Vomiting - Genitourinary Genitourinary: reports: Nocturia (wakes-up 2-3x night). denies: Frequency, Hematuria - Neurological Neurological: reports: General weakness. denies: Headache, Dizziness, Memory problems - Psychiatric Psychiatric: denies: Depression, Anxiety Prior Level of Functionality: Pts does own ADLs, still drives, does not use any mobility aids and denies any falls in the past yr. Exam - Vital Signs Vital Signs: Vital Signs x48h Temp Pulse Resp BP Pulse Ox O2 Flow Rate 08/01/23 18:04 4 08/01/23 17:54 4 08/01/23 17:00 128 H 26 H 114/90 H 88 L 08/01/23 16:30 129 H 21 123/103 H 89 L 08/01/23 16:09 112 H 08/01/23 16:00 123 H 27 H 114/92 H 08/01/23 15:30 110 H 24 103/91 H 89 L 08/01/23 15:06 120 H 26 H 104/85 H 26 L 08/01/23 15:05 140 H 08/01/23 14:36 137 H 30 H 118/96 H 86 L 16 08/01/23 14:23 36.3 C L 140 H 36 H 123/113 H 76 L - Physical Exam General Appearance: positive: Alert (significantly improved since ED and bipap removal) Eyes Bilateral: positive: PERRL, EOMI, No lid inflammation, Conjunctivae nml, No scleral icterus ENT: positive: Pharynx nml Neck: positive: Thyroid nml, No JVD, Trachea midline, Other (no cervical lympadenopathy b/l). negative: Stiff neck Respiratory: positive: Chest non-tender, Rhonchi (anterior, squeaky), Other (posterior crackles b/l. Intermittent labored inhalation.) Cardiovascular: positive: Irregularly irregular. negative: JVD present Peripheral Pulses: positive: 1+ Abdomen: positive: Non-tender, No organomegaly, Nml bowel sounds Back: positive: Nml inspection. negative: CVA tenderness (R), CVA tenderness (L) Skin: positive: Color nml, No rash, Warm, Dry Extremities: positive: Non-tender, Full ROM (UE & LE), Pedal edema (b/l) Neurologic/Psychiatric: positive: Oriented x3, Motor nml, Sensation nml, Mood/affect nml, Other (coordination intact b/l). negative: Sensory loss, Depressed mood/affect Babinski Reflex: Right: Absent, Left: Absent Comments/Other: Pt able to transfer on his own from bed to recliner [id number] Conclusion/Plan - Problem List (1) Atrial fibrillation with RVR Conclusion/Plan: - Echo completed this AM, waiting for cardiology assessment - Continue rate control with IV diltiazem and digoxin - Continue furosemide - Continue to monitor HR (2) Respiratory failure Conclusion/Plan: - Bipap removed post-ED, continue O2 - O2 parameters at 88% - 92% - Continue Levabuterol PRN - Continue methylprednisone - Continue furosimide - Monitor urine output and LE edema Qualifiers: Chronicity: acute Respiratory failure complication: hypoxia Qualified Code(s): J96.01 - Acute respiratory failure with hypoxia (3) COPD (chronic obstructive pulmonary disease) Conclusion/Plan: - Pt reports he quit smoking x8yrs ago w/51yr, 2-3ppd hx - PRN albuterol, pt reports daily use - Lab Results Fish Bones: 08/02/23 04:10 08/02/23 04:10 Core Measures - Anticipated LOS I expect patient to be DC'd or transferred within 96 hours.: Yes - DVT/VTE - Prophylaxis VTE/DVT Device ordered at admit?: Yes
[2023-08-01] MEDS: LEVALBUTEROL 1.25 MG/3 ML NEB INH PRN (19:30)
[2023-08-01] MEDS: POTASSIUM CHLORIDE 20 MEQ TABLET PO ONE (20:02)
[2023-08-01] MEDS: MAGNESIUM OXIDE 400 MG TABLET PO ONE (20:02)
[2023-08-01] MEDS: METOPROLOL 5 MG/5 ML VIAL IVP STA (20:19)
[2023-08-01] MEDS: SODIUM CHLORIDE FLUSH 0.9% 10 ML SYRINGE IVP PRN (20:20)
[2023-08-02 00:19] LABS: CALCIUM, IONIZED 1.03 mmol/L (1.15-1.33); VBG PH 7.448 (7.31-7.41)
[2023-08-02 00:27] LABS: MAGNESIUM 1.8 mg/dL (1.7-2.3)
[2023-08-02 00:32] LABS: PHOSPHORUS 3.8 mg/dL (2.5-5.0)
[2023-08-02] MEDS: MAGNESIUM OXIDE 400 MG TABLET PO ONE ×2 (00:59→06:14)
[2023-08-02] MEDS: CALCIUM GLUC 1,000MG/50ML-NACL 1,000 MG/50 ML BAG IV ONE (01:01)
[2023-08-02 04:21] LABS: BASOPHILS % (AUTO) 0.2 %; HCT - HEMATOCRIT 43.4 % (42.0-52.0); HGB - HEMOGLOBIN 13.6 g/dL (14.0-18.0); LYMPHOCYTES # (AUTO) 0.5 10^3/uL (1.5-3.5); LYMPHOCYTES % (AUTO) 6.1 %; MEAN CORPUSCULAR HEMOGLOBIN 30.2 pg (27.0-31.0); MEAN CORPUSCULAR HGB CONC 31.3 g/dL (32.0-36.0); MEAN CORPUSCULAR VOLUME 96.4 fL (80.0-94.0); MONOCYTES # (AUTO) 0.1 10^3/uL (0.0-1.0); MONOCYTES % (AUTO) 1.5 %; NEUTROPHILS # (AUTO) 7.9 10^3/uL (1.5-6.6); PLT - PLATELET COUNT 217 10^3/uL (130-450); RED CELL DISTRIBUTION WIDTH 15.1 % (12.0-15.0); WHITE BLOOD COUNT 8.6 x10^3/uL (4.8-10.8)
[2023-08-02 04:24] LABS: CALCIUM, IONIZED 1.08 mmol/L (1.15-1.33); VBG PH 7.403 (7.31-7.41)
[2023-08-02 04:40] LABS: CALCIUM 9.1 mg/dL (8.5-10.3); MAGNESIUM 1.8 mg/dL (1.7-2.3); PHOSPHORUS 4.4 mg/dL (2.5-5.0); POTASSIUM 4.2 mmol/L (3.5-4.5)
[2023-08-02] MEDS: CALCIUM CARBONATE CHEW 500 MG TABLET PO SCH (06:15)
[2023-08-02] MEDS: PANTOPRAZOLE 40 MG VIAL IVP SCH (06:16)
[2023-08-02 09:35] LABS: TROPONIN I HIGH SENSITIVITY 2.8 ng/L (2.3-19.7)
[2023-08-02 09:44] LABS: THYROID STIMULATING HORMONE 0.92 uIU/mL (0.34-5.60)
--- NOTE | 2023-08-02 10:48 | PHARMACY PROGRESS NOTE ---
- Best Possible Medication History Admit Date and Time: 08/01/23 1636 Processed by: Pharmacy Medications reviewed in ED?: No Medication History completed: Yes Secondary Source(s): Written medication list As the person ultimately responsible for medication therapy, providers are able to order a medication from an existing home medication list in [facility] via the "Reconcile Routine" prior to Confirmation of that medication by child support agent. Such practice is discouraged except when the physician, in their clinical judgment, deems that a medical need exists for a medication without regard to previous use.
[2023-08-02] MEDS: DIGOXIN 500 MCG/2 ML AMP IVP SCH (11:01)
[2023-08-02] MEDS: NYSTATIN POWDER 15 GM TOP SCH (11:01)
[2023-08-02] MEDS: APIXABAN 5 MG TABLET PO SCH (11:01)
[2023-08-02 16:16] LABS: CALCIUM, IONIZED 1.11 mmol/L (1.15-1.33); VBG PH 7.361 (7.31-7.41)
[2023-08-02] MEDS: LEVALBUTEROL 1.25 MG/3 ML NEB INH SCH ×2 (18:03)
[2023-08-02] MEDS: diltiaZEM INJ 125 MG in DEXTROSE 5% 100 ML IV SCH (18:10)
[2023-08-02] MEDS: IPRATROPIUM 0.2 MG/ML NEB INH SCH (18:11)
[2023-08-02] MEDS ORDERED: IPRATROPIUM 0.2 MG/ML NEB INH SCH (19:00)
--- NOTE | 2023-08-02 19:51 | PROVIDER PROGRESS NOTE ---
Subjective - Prog Note Date Prog Note Date: 08/02/23 Prog Note Time: 19:52 - Subjective Pt reports feeling: Improved Subjective: he is still tachycardic today. Alert oriented elderly gentleman. Very pleasant. Nursing request some nystatin powder for candidiasis of his intertriginous folds. He really has no awareness of his palpitations. He acknowledges he is short of breath but denies chest pain or fast heart rate. Current Medications - Current Medications Current Medications: Active Medications Acetaminophen (Acetaminophen 325 Mg Tablet) 650 mg PO Q4HR PRN PRN Reason: Pain 1 to 4, or Fever Apixaban (Apixaban 5 Mg Tablet) 5 mg PO BID [facility] Last Admin: 08/02/23 11:01 Dose: 5 mg Digoxin (Digoxin 500 Mcg/2 Ml Amp) 250 mcg IVP Q6H [facility] Last Admin: 08/02/23 16:57 Dose: 250 mcg Furosemide (Furosemide 40 Mg/4 Ml Vial) 40 mg IVP BIDDIURETIC [facility] Diltiazem HCl 125 mg/ Dextrose 125 mls @ 15 mls/hr IV .Q8H20M [facility]; Protocol Last Admin: 08/02/23 18:10 Dose: 15 mg/hr, 15 mls/hr Ipratropium [place]ling (Ipratropium 0.2 Mg/Ml Neb) 0.5 mg INH RTQID [facility] Last Admin: 08/02/23 18:11 Dose: 0.5 mg Levalbuterol HCl (Levalbuterol 1.25 Mg/3 Ml Neb) 1.25 mg INH Q4H PRN PRN Reason: Shortness of Air/Wheezing Last Admin: 08/02/23 14:36 Dose: 1.25 mg Levalbuterol HCl (Levalbuterol 1.25 Mg/3 Ml Neb) 1.25 mg INH RTQID [facility] Last Admin: 08/02/23 18:03 Dose: 1.25 mg Methylprednisolone (Methylprednisolone Succinate 40 Mg/Ml Vial) 40 mg IVP TID [facility] Last Admin: 08/02/23 13:10 Dose: 40 mg Nystatin (Nystatin Powder 15 Gm) 1 applic TOP BID [facility] Last Admin: 08/02/23 11:01 Dose: 1 applic Ondansetron HCl (Ondansetron Odt 4 Mg Tablet) 4 mg TL Q6HR PRN PRN Reason: Nausea / Vomiting Ondansetron HCl (Ondansetron 4 Mg/2 Ml Vial) 4 mg IVP Q6HR PRN PRN Reason: Nausea / Vomiting Oxycodone HCl (Oxycodone 5 Mg Tablet) 5 mg PO Q4HR PRN PRN Reason: Pain 5 to 7 Pantoprazole Sodium (Pantoprazole 40 Mg Vial) 40 mg IVP QDAC [facility] Last Admin: 08/02/23 06:16 Dose: 40 mg Polyethylene Glycol (Polyethylene Glycol 3350 17 Gm Packet) 17 gm PO DAILY [facility] Promethazine HCl (Promethazine 25 Mg/1 Ml Vial) 25 mg IM Q6HR PRN PRN Reason: Nausea / Vomiting Sodium Chloride (Sodium Chloride Flush 0.9% 10 Ml Syringe) 10 ml IVP 0100,0900,1700 [facility] Last Admin: 08/02/23 11:01 Dose: 10 ml Sodium Chloride (Sodium Chloride Flush 0.9% 10 Ml Syringe) 10 ml IVP PRN PRN PRN Reason: NEEDED PER PROVIDER ORDERS Last Admin: 08/02/23 06:16 Dose: 10 ml Aspirin EC [Ecotrin] 81 mg PO DAILY 08/01/23 Atorvastatin [Lipitor] 10 mg PO HS 08/01/23 Cetirizine [ZyrTEC] 10 mg PO DAILY 08/01/23 Fluticasone Propionate 2 spray NICOLE DAILY PRN 08/01/23 NIFEdipine [Nifedipine ER] 90 mg PO DAILY 08/01/23 Omeprazole 40 mg PO BID 08/01/23 Potassium Chloride 10 meq PO DAILY 08/01/23 hydroCHLOROthiazide [Hydrodiuril] 12.5 mg PO DAILY 08/01/23 Ascorbic Acid [Vitamin C] 1,000 mg PO DAILY 08/02/23 Cholecalciferol (Vitamin D3) [Vitamin D3] 50 mcg PO DAILY 08/02/23 Cyanocobalamin (Vitamin B-12) [Vitamin B-12] 1,000 mcg PO DAILY 08/02/23 Fluticasone Propion/Salmeterol [Wixela 500-50 Inhub] 1 puffs INH BID 08/02/23 Folic Acid 0.4 mg PO DAILY 08/02/23 Multivitamin [Theragran] 1 each PO DAILY 08/02/23 Objective - Vital Signs/Intake & Output Reviewed Vital Signs: Yes Vital Signs: Vital Signs x48h Temp Pulse Pulse Pulse Resp BP BP 08/02/23 19:00 91 20 106/72 08/02/23 18:38 08/02/23 18:14 08/02/23 18:11 89 17 08/02/23 18:00 81 19 119/77 08/02/23 17:00 36.6 C 97 25 H 125/81 H 08/02/23 16:57 92 08/02/23 16:00 91 25 H 115/77 08/02/23 15:00 85 25 H 114/82 H 08/02/23 14:36 89 22 08/02/23 14:00 96 20 117/70 08/02/23 13:45 102 H 112/81 H 08/02/23 13:23 95 26 H 112/81 H 08/02/23 12:00 36.6 C 98 24 95/62 Pulse Ox Pulse Ox O2 Flow Rate 08/02/23 19:00 93 11 08/02/23 18:38 11 08/02/23 18:14 10 08/02/23 18:11 10 08/02/23 18:00 89 L 11 08/02/23 17:00 88 L 11 08/02/23 16:57 08/02/23 16:00 90 L 6 08/02/23 15:00 88 L 6 08/02/23 14:36 08/02/23 14:00 91 L 10 08/02/23 13:45 88 L 08/02/23 13:23 95 8 08/02/23 12:00 90 L 8 Intake & Output: Intake & Output 07/30/23 07/31/23 08/01/23 08/02/23 23:59 23:59 23:59 23:59 Intake Total 566.082 1299.667 Output Total 1015 479 Balance -548.031 0133.667 - Objective General Appearance: positive: No acute distress, Mild distress ( Easily tachypneic at rest with talking to me), Other ( mildly deaf but alert and oriented elderly gentleman with a disheveled appearance) Eyes Bilateral: positive: PERRL, EOMI ENT: positive: Pharynx nml Neck: positive: No JVD. negative: Stiff neck Respiratory: positive: Rales, Rhonchi. negative: Wheezes ( but he has a prolonged emd expiatory exhalation phase) Cardiovascular: positive: Irregularly irregular, Tachycardia, Systolic murmur Abdomen: positive: Non-tender, No organomegaly, Nml bowel sounds, No distention Skin: positive: Warm, Dry, Skin rash ( of Kamille intertrigo in his groin) Extremities: positive: Pedal edema ( breadloafed pedal edema of the ankles and legs. Not much improved from yesterday) Neurologic/Psychiatric: positive: Oriented x3, CN's nml (2-12), Motor nml - Lab Results Fish Bones: 08/02/23 04:10 08/02/23 04:10 Other Labs: Lab Results x24hrs 08/02/23 08/02/23 08/02/23 Range/Units 14:06 08:56 04:10 WBC (4.8-10.8) x10^3/uL RBC (4.70-6.10) 10^6/uL Hgb (14.0-18.0) g/dL Hct (42.0-52.0) % MCV (80.0-94.0) fL MCH (27.0-31.0) pg MCHC (32.0-36.0) g/dL RDW (12.0-15.0) % Plt Count (130-450) 10^3/uL MPV (7.4-11.4) fL Neut # (Auto) (1.5-6.6) 10^3/uL Lymph # (Auto) (1.5-3.5) 10^3/uL Ritchie # (Auto) (0.0-1.0) 10^3/uL Eos # (Auto) (0.0-0.7) 10^3/uL Baso # (Auto) (0.0-0.1) 10^3/uL Absolute Nucleated RBC x10^3/uL Nucleated RBC % /100WBC VBG pH 7.361 7.403 (7.31-7.41) Ionized Calcium 1.11 L 1.08 L (1.15-1.33) mmol/L Sodium (135-145) mmol/L Potassium (3.5-4.5) mmol/L Chloride (101-111) mmol/L Carbon Dioxide (21-32) mmol/L Anion Gap (6-13) BUN (6-20) mg/dL Creatinine (0.6-1.3) mg/dL Estimated GFR (MDRD) (>89) Glucose (74-104) mg/dL Calcium (8.5-10.3) mg/dL Phosphorus (2.5-5.0) mg/dL Magnesium (1.7-2.3) mg/dL Troponin I High Sens 2.8 (2.3-19.7) ng/L B-Natriuretic Peptide (5-100) pg/mL TSH 0.92 (0.34-5.60) uIU/mL Nasal Screen MRSA (PCR) (NEGATIVE) 08/02/23 08/02/23 08/02/23 Range/Units 04:10 04:10 04:10 WBC (4.8-10.8) x10^3/uL RBC (4.70-6.10) 10^6/uL Hgb (14.0-18.0) g/dL Hct (42.0-52.0) % MCV (80.0-94.0) fL MCH (27.0-31.0) pg MCHC (32.0-36.0) g/dL RDW (12.0-15.0) % Plt Count (130-450) 10^3/uL MPV (7.4-11.4) fL Neut # (Auto) (1.5-6.6) 10^3/uL Lymph # (Auto) (1.5-3.5) 10^3/uL Ritchie # (Auto) (0.0-1.0) 10^3/uL Eos # (Auto) (0.0-0.7) 10^3/uL Baso # (Auto) (0.0-0.1) 10^3/uL Absolute Nucleated RBC x10^3/uL Nucleated RBC % /100WBC VBG pH (7.31-7.41) Ionized Calcium (1.15-1.33) mmol/L Sodium 138 (135-145) mmol/L Potassium 4.2 (3.5-4.5) mmol/L Chloride 98 L (101-111) mmol/L Carbon Dioxide 33 H (21-32) mmol/L Anion Gap 7.0 (6-13) BUN 31 H (6-20) mg/dL Creatinine 1.0 (0.6-1.3) mg/dL Estimated GFR (MDRD) 73 L (>89) Glucose 172 H (74-104) mg/dL Calcium 9.1 (8.5-10.3) mg/dL Phosphorus 4.4 (2.5-5.0) mg/dL Magnesium 1.8 (1.7-2.3) mg/dL Troponin I High Sens (2.3-19.7) ng/L B-Natriuretic Peptide 955 H (5-100) pg/mL TSH (0.34-5.60) uIU/mL Nasal Screen MRSA (PCR) (NEGATIVE) 08/02/23 08/02/23 08/02/23 Range/Units 04:10 00:11 00:11 WBC 8.6 (4.8-10.8) x10^3/uL RBC 4.50 L (4.70-6.10) 10^6/uL Hgb 13.6 L (14.0-18.0) g/dL Hct 43.4 (42.0-52.0) % MCV 96.4 H (80.0-94.0) fL MCH 30.2 (27.0-31.0) pg MCHC 31.3 L (32.0-36.0) g/dL RDW 15.1 H (12.0-15.0) % Plt Count 217 (130-450) 10^3/uL MPV 10.0 (7.4-11.4) fL Neut # (Auto) 7.9 H (1.5-6.6) 10^3/uL Lymph # (Auto) 0.5 L (1.5-3.5) 10^3/uL Ritchie # (Auto) 0.1 (0.0-1.0) 10^3/uL Eos # (Auto) 0.0 (0.0-0.7) 10^3/uL Baso # (Auto) 0.0 (0.0-0.1) 10^3/uL Absolute Nucleated RBC 0.00 x10^3/uL Nucleated RBC % 0.0 /100WBC VBG pH 7.448 H (7.31-7.41) Ionized Calcium 1.03 L (1.15-1.33) mmol/L Sodium (135-145) mmol/L Potassium 4.0 (3.5-4.5) mmol/L Chloride (101-111) mmol/L Carbon Dioxide (21-32) mmol/L Anion Gap (6-13) BUN (6-20) mg/dL Creatinine (0.6-1.3) mg/dL Estimated GFR (MDRD) (>89) Glucose (74-104) mg/dL Calcium (8.5-10.3) mg/dL Phosphorus 3.8 (2.5-5.0) mg/dL Magnesium 1.8 (1.7-2.3) mg/dL Troponin I High Sens (2.3-19.7) ng/L B-Natriuretic Peptide (5-100) pg/mL TSH (0.34-5.60) uIU/mL Nasal Screen MRSA (PCR) (NEGATIVE) 08/01/23 Range/Units 15:45 WBC (4.8-10.8) x10^3/uL RBC (4.70-6.10) 10^6/uL Hgb (14.0-18.0) g/dL Hct (42.0-52.0) % MCV (80.0-94.0) fL MCH (27.0-31.0) pg MCHC (32.0-36.0) g/dL RDW (12.0-15.0) % Plt Count (130-450) 10^3/uL MPV (7.4-11.4) fL Neut # (Auto) (1.5-6.6) 10^3/uL Lymph # (Auto) (1.5-3.5) 10^3/uL Ritchie # (Auto) (0.0-1.0) 10^3/uL Eos # (Auto) (0.0-0.7) 10^3/uL Baso # (Auto) (0.0-0.1) 10^3/uL Absolute Nucleated RBC x10^3/uL Nucleated RBC % /100WBC VBG pH (7.31-7.41) Ionized Calcium (1.15-1.33) mmol/L Sodium (135-145) mmol/L Potassium (3.5-4.5) mmol/L Chloride (101-111) mmol/L Carbon Dioxide (21-32) mmol/L Anion Gap (6-13) BUN (6-20) mg/dL Creatinine (0.6-1.3) mg/dL Estimated GFR (MDRD) (>89) Glucose (74-104) mg/dL Calcium (8.5-10.3) mg/dL Phosphorus (2.5-5.0) mg/dL Magnesium (1.7-2.3) mg/dL Troponin I High Sens (2.3-19.7) ng/L B-Natriuretic Peptide (5-100) pg/mL TSH (0.34-5.60) uIU/mL Nasal Screen MRSA (PCR) NEGATIVE (NEGATIVE) Assessment/Plan - Problem List (1) Atrial fibrillation with RVR Impression: Rate is still fast this morning and spite of Cardizem drip. he now has a New diagnosis of acute on chronic systolic heart failure with reduced ejection fraction. Plan: Digoxin 0.25 IV push every 6 hours x 4 doses only increase Lasix from 20 mg IV push twice daily to 40 mg IV push twice daily Preliminary echocardiogram shows normal LV size and severely reduced systolic function at 25 to 30%. Moderate mitral regurgitation. With the left atrial volume index of 55 mL/m. I need to get him off the Cardizem because of the reduced ejection fraction. Our likelihood of getting him back to sinus rhythm is very small because of the left atrial size. He will need a workup in the outpatient setting to include stress test and cardiology evaluation. Start Eliquis 5 mg p.o. twice daily add Coreg 6.25 twice daily hopefully get him off the Cardizem as soon as his rate is adequate I will order PT and OT for evaluation to see if he can ambulate. I'd like to estimate how deconditioned he is (2) Respiratory failure with hypoxia Conclusion/Plan: - Bipap removed post-ED, continue O2 - O2 parameters at 88% - 92% - change levalbuterol from as needed to 4 times daily and add Atrovent 4 times daily at a fixed scheduled dose. - Continue methylprednisone - Continue furosemide - Monitor urine output and LE edema Qualifiers: Chronicity: acute Respiratory failure complication: hypoxia Qualified Code(s): J96.01 - Acute respiratory failure with hypoxia (3) COPD (chronic obstructive pulmonary disease) Conclusion/Plan: - Pt reports he quit smoking x8yrs ago w/50yr, 2-3ppd hx - PRN albuterol, pt reports daily use (4) Kamille intertrigo start nystatin powder
[2023-08-03 04:46] LABS: BASOPHILS % (AUTO) 0.1 %; CALCIUM, IONIZED 1.07 mmol/L (1.15-1.33); HCT - HEMATOCRIT 40.9 % (42.0-52.0); HGB - HEMOGLOBIN 13.2 g/dL (14.0-18.0); LYMPHOCYTES # (AUTO) 0.4 10^3/uL (1.5-3.5); LYMPHOCYTES % (AUTO) 3.4 %; MEAN CORPUSCULAR HEMOGLOBIN 30.9 pg (27.0-31.0); MEAN CORPUSCULAR HGB CONC 32.3 g/dL (32.0-36.0); MEAN CORPUSCULAR VOLUME 95.8 fL (80.0-94.0); MONOCYTES # (AUTO) 0.4 10^3/uL (0.0-1.0); MONOCYTES % (AUTO) 3.2 %; NEUTROPHILS # (AUTO) 10.9 10^3/uL (1.5-6.6); NEUTROPHILS % (AUTO) 92.8 %; PLT - PLATELET COUNT 221 10^3/uL (130-450); RED BLOOD COUNT 4.27 10^6/uL (4.70-6.10); RED CELL DISTRIBUTION WIDTH 15.1 % (12.0-15.0); VBG PH 7.473 (7.31-7.41); WHITE BLOOD COUNT 11.8 x10^3/uL (4.8-10.8)
[2023-08-03 05:03] LABS: CALCIUM 9.1 mg/dL (8.5-10.3); CREATININE 1.1 mg/dL (0.6-1.3); PHOSPHORUS 4.2 mg/dL (2.5-5.0); POTASSIUM 4.3 mmol/L (3.5-4.5)
[2023-08-03] MEDS: FUROSEMIDE 40 MG/4 ML VIAL IVP SCH (05:16)
[2023-08-03] MEDS: CALCIUM CARBONATE CHEW 500 MG TABLET PO SCH ×2 (06:07→15:21)
[2023-08-03] MEDS: polyethylene glycoL 3350 17 GM PACKET PO SCH (08:14)
[2023-08-03] MEDS: BUMETANIDE INJ 10 MG in SODIUM CHLORIDE 0.9% 210 ML IV SCH (08:58)
--- NOTE | 2023-08-03 11:05 | PROVIDER PROGRESS NOTE ---
Assessment/Plan - Problem List (1) Atrial fibrillation with RVR Assessment/Plan: - Echo findings indicate reduced LVEF 25-30% * new dx of acute on chronic systolic heart failure * Likelihood of pt getting back to sinus rhythm is very small because of L atrial size. Will need outpatient workup w/stress test and cardiology evaluation. - Persistently rapid HR despite being on Cardizem IV * Start metoprolol tartrate to help with LVEF and rate control * Plan for hemodynamic stablization * Digoxin 0.25 IV push q6 hours x 4 doses only for inotropic support * D/c furosemide and start bumetide d/t reduced LVEF * Start Eliquis 5 mg p.o. BID * Add Coreg 6.25 BID - Goal: get pt off Cardizem as soon as his rate is adequate - PT and OT ordered to evaluate ambulation to estimate how deconditioned he is (2) Respiratory failure Qualifiers: Chronicity: acute Respiratory failure complication: hypoxia Qualified Code(s): J96.01 - Acute respiratory failure with hypoxia Assessment/Plan: - Bipap removed post-ED - O2 target = 88% - 92% (for COPD pts), pt doing well on O2 11L, O2 has been in low to mid 90s - Change Levalbuterol to QID from PRN - Add Atrovent QID at fixed scheduled dose - Continue methylprednisone - D/c furosemide and start bumetide d/t reduced LVEF * Pt urine output 2495mL this AM, continue to monitor - Continue to check electrolytes and kidney function - Continue monitoring LE edema, mild improvement since ED * Calf circumference above sock line = 29cm b/l (as of 08/02 11am) (3) Acute on chronic systolic heart failure Assessment/Plan: - Electrocardiogram completed 08/02/23 * Normal LV size and severely reduced systolic function 25-30% * Moderate mitral regurgitation - Start metoprolol tartrate to help with LVEF and rate control (4) COPD (chronic obstructive pulmonary disease) Qualifiers: Emphysema type: unspecified Assessment/Plan: - Pt reports he quit smoking x8yrs ago w/50yr, 2-3ppd hx - PRN albuterol, pt reports daily use - Consider adding long-acting bronchodilator upon discharge (5) Candidal intertrigo Assessment/Plan: - Continue nystatin powder, monitor for worsening symptoms - Current Meds Current Meds: Current Medications Generic Name Dose Route Start Last Admin Trade Name Freq PRN Reason Stop Dose Admin Apixaban 5 mg 08/02/23 11:00 08/03/23 08:14 Apixaban 5 Mg Tablet PO 5 mg BID FREDRICK Administration Diltiazem HCl 125 mg/ Dextrose 125 mls @ 15 mls/hr 08/02/23 15:00 08/03/23 03:51 IV 10 mg/hr .Q8H20M FREDRICK 10 mls/hr Administration Protocol 15 MG/HR Bumetanide 10 mg/ Sodium 250 mls @ 12.5 mls/hr 08/03/23 09:00 08/03/23 08:58 Chloride IV 0.5 mg/hr .Q20H FREDRICK 12.5 mls/hr Administration Protocol 0.5 MG/HR Ipratropium [place] 0.5 mg 08/02/23 19:00 08/03/23 06:15 Ipratropium 0.2 Mg/Ml Neb INH 0.5 mg RTQID FREDRICK Administration Levalbuterol HCl 1.25 mg 08/01/23 16:46 08/02/23 14:36 Levalbuterol 1.25 Mg/3 Ml Neb INH 1.25 mg Q4H PRN Administration Shortness of Air/Wheezing Levalbuterol HCl 1.25 mg 08/02/23 19:00 08/03/23 06:15 Levalbuterol 1.25 Mg/3 Ml Neb INH 1.25 mg RTQID FREDRICK Administration Methylprednisolone 40 mg 08/01/23 17:00 08/03/23 05:21 Methylprednisolone Succinate 40 Mg/Ml Vial IVP 40 mg TID FREDRICK Administration Nystatin 1 applic 08/02/23 11:00 08/03/23 08:14 Nystatin Powder 15 Gm TOP 1 applic BID FREDRICK Administration Pantoprazole Sodium 40 mg 08/02/23 07:00 08/03/23 06:48 Pantoprazole 40 Mg Vial IVP 40 mg QDAC FREDRICK Administration Polyethylene Glycol 17 gm 08/03/23 09:00 08/03/23 08:14 Polyethylene Glycol 3350 17 Gm Packet PO 17 gm DAILY FREDRICK Administration Sodium Chloride 10 ml 08/01/23 17:00 08/03/23 08:58 Sodium Chloride Flush 0.9% 10 Ml Syringe IVP 10 ml 0100,0900,1700 FREDRICK Administration Sodium Chloride 10 ml 08/01/23 16:34 08/02/23 06:16 Sodium Chloride Flush 0.9% 10 Ml Syringe IVP 10 ml PRN PRN Administration NEEDED PER PROVIDER ORDERS - Lab Result Fish Bone Diagrams: 08/03/23 04:36 08/03/23 04:36 Subjective - Subjective Patient Reports: Resting Comfortably, Cough (productive), Shortness of Breath Objective Vital Signs: Vital Signs - 24 hr 08/02/23 08/02/23 08/02/23 11:01 12:00 13:23 Temperature 36.6 C Heart Rate 108 H Heart Rate [ 98 95 Monitoring electrodes] Heart Rate [ Supine] Respiratory 24 26 H Rate Blood Pressure 95/62 112/81 H [Left Brachial artery] Blood Pressure [Supine] O2 Saturation 90 L 95 O2 Saturation [ With Activity] If not protocol 8 8 : Oxygen Flow, liters/minute 08/02/23 08/02/23 08/02/23 13:45 14:00 14:36 Temperature Heart Rate 89 Heart Rate [ 96 Monitoring electrodes] Heart Rate [ 102 H Supine] Respiratory 20 22 Rate Blood Pressure 117/70 [Left Brachial artery] Blood Pressure 112/81 H [Supine] O2 Saturation 91 L O2 Saturation [ 88 L With Activity] If not protocol 10 : Oxygen Flow, liters/minute 08/02/23 08/02/23 08/02/23 15:00 16:00 16:57 Temperature Heart Rate 92 Heart Rate [ 85 91 Monitoring electrodes] Heart Rate [ Supine] Respiratory 25 H 25 H Rate Blood Pressure 114/82 H 115/77 [Left Brachial artery] Blood Pressure [Supine] O2 Saturation 88 L 90 L O2 Saturation [ With Activity] If not protocol 6 6 : Oxygen Flow, liters/minute 08/02/23 08/02/23 08/02/23 17:00 18:00 18:11 Temperature 36.6 C Heart Rate 89 Heart Rate [ 97 81 Monitoring electrodes] Heart Rate [ Supine] Respiratory 25 H 19 17 Rate Blood Pressure 125/81 H 119/77 [Left Brachial artery] Blood Pressure [Supine] O2 Saturation 88 L 89 L O2 Saturation [ With Activity] If not protocol 11 11 10 : Oxygen Flow, liters/minute 08/02/23 08/02/23 08/02/23 18:14 18:38 19:00 Temperature Heart Rate Heart Rate [ 91 Monitoring electrodes] Heart Rate [ Supine] Respiratory 20 Rate Blood Pressure 106/72 [Left Brachial artery] Blood Pressure [Supine] O2 Saturation 93 O2 Saturation [ With Activity] If not protocol 10 11 11 : Oxygen Flow, liters/minute 08/02/23 08/02/23 08/02/23 20:00 21:00 22:00 Temperature 36.5 C Heart Rate Heart Rate [ 80 91 87 Monitoring electrodes] Heart Rate [ Supine] Respiratory 24 24 22 Rate Blood Pressure 111/65 99/76 110/79 [Left Brachial artery] Blood Pressure [Supine] O2 Saturation 90 L 88 L 94 O2 Saturation [ With Activity] If not protocol 11 11 11 : Oxygen Flow, liters/minute 08/02/23 08/02/23 08/03/23 22:53 23:00 00:00 Temperature Heart Rate 98 Heart Rate [ 84 83 Monitoring electrodes] Heart Rate [ Supine] Respiratory 17 23 Rate Blood Pressure 109/72 116/74 [Left Brachial artery] Blood Pressure [Supine] O2 Saturation 90 L 88 L O2 Saturation [ With Activity] If not protocol 11 11 : Oxygen Flow, liters/minute 08/03/23 08/03/23 08/03/23 01:00 02:00 03:00 Temperature Heart Rate Heart Rate [ 83 79 97 Monitoring electrodes] Heart Rate [ Supine] Respiratory 20 24 25 H Rate Blood Pressure 114/74 115/67 101/67 [Left Brachial artery] Blood Pressure [Supine] O2 Saturation 88 L 92 88 L O2 Saturation [ With Activity] If not protocol 10 10 10 : Oxygen Flow, liters/minute 08/03/23 08/03/23 08/03/23 04:00 05:00 05:15 Temperature 36.6 C Heart Rate 85 Heart Rate [ 87 92 Monitoring electrodes] Heart Rate [ Supine] Respiratory 26 H 27 H Rate Blood Pressure 108/67 117/82 H [Left Brachial artery] Blood Pressure [Supine] O2 Saturation 90 L 90 L O2 Saturation [ With Activity] If not protocol 10 10 : Oxygen Flow, liters/minute 08/03/23 08/03/23 08/03/23 05:58 06:15 07:00 Temperature 36.6 C Heart Rate 98 Heart Rate [ 90 86 Monitoring electrodes] Heart Rate [ Supine] Respiratory 26 H 20 21 Rate Blood Pressure 124/85 H 141/69 H [Left Brachial artery] Blood Pressure [Supine] O2 Saturation 91 L 94 O2 Saturation [ With Activity] If not protocol 10 10 13 : Oxygen Flow, liters/minute 08/03/23 08/03/23 08/03/23 08:00 09:00 10:00 Temperature 36.4 C L Heart Rate Heart Rate [ 93 98 92 Monitoring electrodes] Heart Rate [ Supine] Respiratory 23 18 17 Rate Blood Pressure 110/68 123/59 L 116/73 [Left Brachial artery] Blood Pressure [Supine] O2 Saturation 93 94 95 O2 Saturation [ With Activity] If not protocol 13 13 11 : Oxygen Flow, liters/minute 08/03/23 10:54 Temperature Heart Rate Heart Rate [ Monitoring electrodes] Heart Rate [ Supine] Respiratory Rate Blood Pressure [Left Brachial artery] Blood Pressure [Supine] O2 Saturation O2 Saturation [ With Activity] If not protocol 11 : Oxygen Flow, liters/minute Oxygen O2 Source [With Activity] Oxymizer O2 Source Oxymizer I&O (Last 24 Hrs): Intake and Output Totals x24h 08/01/23 08/02/23 08/03/23 23:59 23:59 23:59 Intake Total 650.727 2258.167 820.2 Output Total 5380 165 8810 Balance -487.651 8170.167 -1324.8 General: Alert, Oriented x3, Cooperative, No acute distress HEENT: Atraumatic, PERRLA, EOMI, Mucous membr. moist/pink Neck: Supple, No JVD Lymphatic: no adenopathy Neuro: Alert, CN 2-12 Grossly Intact, Oriented Times 3 Cardiovascular: Other (irregularly irregular) Respiratory: Chest non-tender, Rales, Rhonchi Abdomen: Soft, No tenderness Extremities: Other (b/l LE edema. Calf circumference b/l above sock line = 29cm as of 08/03/23 11:00AM) Comments/Notes: Pt is alert, feeling well, sleeping well, and has good appetite - looks forward to meals. He has also been productively coughing phlegm. - Results Results: Laboratory Results WBC 11.8 x10^3/uL (4.8-10.8) H 08/03/23 04:36 RBC 4.27 10^6/uL (4.70-6.10) L 08/03/23 04:36 Hgb 13.2 g/dL (14.0-18.0) L 08/03/23 04:36 Hct 40.9 % (42.0-52.0) L 08/03/23 04:36 MCV 95.8 fL (80.0-94.0) H 08/03/23 04:36 MCH 30.9 pg (27.0-31.0) 08/03/23 04:36 MCHC 32.3 g/dL (32.0-36.0) 08/03/23 04:36 RDW 15.1 % (12.0-15.0) H 08/03/23 04:36 Plt Count 221 10^3/uL (130-450) 08/03/23 04:36 MPV 10.0 fL (7.4-11.4) 08/03/23 04:36 Neut # (Auto) 10.9 10^3/uL (1.5-6.6) H 08/03/23 04:36 Lymph # (Auto) 0.4 10^3/uL (1.5-3.5) L 08/03/23 04:36 Walsh # (Auto) 0.4 10^3/uL (0.0-1.0) 08/03/23 04:36 Eos # (Auto) 0.0 10^3/uL (0.0-0.7) 08/03/23 04:36 Baso # (Auto) 0.0 10^3/uL (0.0-0.1) 08/03/23 04:36 Absolute Nucleated RBC 0.00 x10^3/uL 08/03/23 04:36 Nucleated RBC % 0.0 /100WBC 08/03/23 04:36 PT 15.2 secs (9.9-12.6) H 08/01/23 14:48 INR 1.4 (0.8-1.2) H 08/01/23 14:48 Bld Gas Analysis Time 1600 08/01/23 15:52 Sample Site LEFT BRACHIAL 08/01/23 15:52 ABG pH 7.39 (7.35-7.45) 08/01/23 15:52 ABG pCO2 53 mmHg (34-45) H 08/01/23 15:52 ABG pO2 63 mmHg (80-100) L 08/01/23 15:52 ABG HCO3 31.4 mmol/L (22.0-26.0) H 08/01/23 15:52 ABG Total CO2 33.0 MMOL/L (21.0-29.0) H 08/01/23 15:52 ABG O2 Saturation 91 % (94-98) L 08/01/23 15:52 ABG Base Excess 5.0 mmol/L (-2.0-3.0) H 08/01/23 15:52 Harvinder Test NOT APPLICABLE 08/01/23 15:52 VBG pH 7.473 (7.31-7.41) H 08/03/23 04:36 Ionized Calcium 1.07 mmol/L (1.15-1.33) L 08/03/23 04:36 O2 Delivery Device BiPAP 08/01/23 15:52 FiO2 40.00 08/01/23 15:52 EPAP 4 cmH2O 08/01/23 15:52 IPAP 8 cmH2O 08/01/23 15:52 Sodium 137 mmol/L (135-145) 08/03/23 04:36 Potassium 4.3 mmol/L (3.5-4.5) 08/03/23 04:36 Chloride 98 mmol/L (101-111) L 08/03/23 04:36 Carbon Dioxide 35 mmol/L (21-32) H 08/03/23 04:36 Anion Gap 4.0 (6-13) L 08/03/23 04:36 BUN 37 mg/dL (6-20) H 08/03/23 04:36 Creatinine 1.1 mg/dL (0.6-1.3) 08/03/23 04:36 Estimated GFR (MDRD) 66 (>89) L 08/03/23 04:36 Glucose 170 mg/dL (74-104) H 08/03/23 04:36 Calcium 9.1 mg/dL (8.5-10.3) 08/03/23 04:36 Phosphorus 4.2 mg/dL (2.5-5.0) 08/03/23 04:36 Magnesium 2.0 mg/dL (1.7-2.3) 08/03/23 04:36 Total Bilirubin 0.8 mg/dL (0.2-1.0) 08/01/23 14:48 AST 25 IU/L (10-42) 08/01/23 14:48 ALT 36 IU/L (10-60) 08/01/23 14:48 Alkaline Phosphatase 74 IU/L (42-121) 08/01/23 14:48 Troponin I High Sens 2.8 ng/L (2.3-19.7) 08/02/23 08:56 B-Natriuretic Peptide 842 pg/mL (5-100) H 08/03/23 04:36 Total Protein 7.2 g/dL (6.4-8.9) 08/01/23 14:48 Albumin 3.7 g/dL (3.2-5.5) 08/01/23 14:48 Globulin 3.5 g/dL (2.1-4.2) 08/01/23 14:48 Albumin/Globulin Ratio 1.1 (1.0-2.2) 08/01/23 14:48 Lipase 28 U/L (11-82) 08/01/23 14:48 TSH 0.92 uIU/mL (0.34-5.60) 08/02/23 08:56 Urine Color DARK YELLOW 08/01/23 16:00 Urine Clarity CLEAR (CLEAR) 08/01/23 16:00 Urine pH 6.0 PH (5.0-7.5) 08/01/23 16:00 Ur Specific Leonardo 1.020 (1.002-1.030) 08/01/23 16:00 Urine Protein TRACE mg/dL (NEGATIVE) 08/01/23 16:00 Urine Glucose (UA) NEGATIVE mg/dL (NEGATIVE) 08/01/23 16:00 Urine Ketones NEGATIVE mg/dL (NEGATIVE) 08/01/23 16:00 Urine Occult Blood NEGATIVE (NEGATIVE) 08/01/23 16:00 Urine Nitrite NEGATIVE (NEGATIVE) 08/01/23 16:00 Urine Bilirubin NEGATIVE (NEGATIVE) 08/01/23 16:00 Urine Urobilinogen 1 (NORMAL) E.U./dL (NORMAL) 08/01/23 16:00 Ur Leukocyte Esterase NEGATIVE (NEGATIVE) 08/01/23 16:00 Ur Microscopic Review NOT INDICATED 08/01/23 16:00 Urine Culture Comments NOT INDICATED 08/01/23 16:00 Nasal Adenovirus (PCR) NOT DETECTED 08/01/23 15:58 Nasal B. parapertussis DNA (PCR) NOT DETECTED 08/01/23 15:58 Nasal Coronavir 229E PCR NOT DETECTED 08/01/23 15:58 Nasal Coronavir HKU1 PCR NOT DETECTED 08/01/23 15:58 Nasal Coronavir NL63 PCR NOT DETECTED 08/01/23 15:58 Nasal Coronavir OC43 PCR NOT DETECTED 08/01/23 15:58 Nasal Enterovir/Rhinovir PCR NOT DETECTED 08/01/23 15:58 Nasal Influenza B PCR NOT DETECTED 08/01/23 15:58 Nasal Influenza A PCR NOT DETECTED 08/01/23 15:58 Nasal Parainfluen 1 PCR NOT DETECTED 08/01/23 15:58 Nasal Parainfluen 2 PCR NOT DETECTED 08/01/23 15:58 Nasal Parainfluen 3 PCR NOT DETECTED 08/01/23 15:58 Nasal Parainfluen 4 PCR NOT DETECTED 08/01/23 15:58 Nasal RSV (PCR) NOT DETECTED 08/01/23 15:58 Nasal Screen MRSA (PCR) NEGATIVE (NEGATIVE) 08/01/23 15:45 Nasal B.pertussis DNA PCR NOT DETECTED 08/01/23 15:58 Nasal C.pneumoniae (PCR) NOT DETECTED 08/01/23 15:58 Sean Human Metapneumo PCR NOT DETECTED 08/01/23 15:58 Nasal M.pneumoniae (PCR) NOT DETECTED 08/01/23 15:58 Nasal SARS-CoV-2 (PCR) NOT DETECTED 08/01/23 15:58 Urine Opiates Screen NEGATIVE (NEGATIVE) 08/01/23 16:00 Ur Buprenorphine Scrn NEGATIVE (NEGATIVE) 08/01/23 16:00 Ur Oxycodone Screen NEGATIVE (NEGATIVE) 08/01/23 16:00 Urine Methadone Screen NEGATIVE (NEGATIVE) 08/01/23 16:00 Ur Barbiturates Screen NEGATIVE (NEGATIVE) 08/01/23 16:00 Ur Tricyclics Screen NEGATIVE (NEGATIVE) 08/01/23 16:00 Ur Phencyclidine Scrn NEGATIVE (NEGATIVE) 08/01/23 16:00 Ur Amphetamine Screen NEGATIVE (NEGATIVE) 08/01/23 16:00 U Methamphetamines Scrn NEGATIVE (NEGATIVE) 08/01/23 16:00 U Benzodiazepines Scrn NEGATIVE (NEGATIVE) 08/01/23 16:00 Urine Cocaine Screen NEGATIVE (NEGATIVE) 08/01/23 16:00 U Cannabinoids Screen NEGATIVE (NEGATIVE) 08/01/23 16:00 Ur Drug Screen Comment CUTOFF CONC BELOW: 05/22/24 16:00 Ethyl Alcohol < 10.0 mg/dL 08/01/23 14:48 ABX Reporting Has patient been on IV antibiotics over the past 48 hours?: No
[2023-08-03] MEDS: METOPROLOL 5 MG/5 ML VIAL IVP STA (13:39)
[2023-08-03 14:21] LABS: CALCIUM, IONIZED 1.03 mmol/L (1.15-1.33); VBG PH 7.448 (7.31-7.41)
[2023-08-03] MEDS: METOPROLOL TARTRATE 50 MG TABLET PO SCH (15:18)
[2023-08-03] MEDS: METOPROLOL 5 MG/5 ML VIAL IVP PRN (21:38)
[2023-08-03 22:03] LABS: CALCIUM, IONIZED 0.97 mmol/L (1.15-1.33); VBG PH 7.508 (7.31-7.41)
[2023-08-03 22:20] LABS: CALCIUM 8.6 mg/dL (8.5-10.3); MAGNESIUM 1.2 mg/dL (1.7-2.3); POTASSIUM 2.8 mmol/L (3.5-4.5)
[2023-08-03] MEDS: POTASSIUM CHLOR 10 MEQ/100 ML 10 MEQ/100 ML BAG IV SCH (22:31)
[2023-08-03] MEDS: MAGNESIUM SULFATE 2 GRAM 2 GM/50 ML BAG IV SCH (22:31)
[2023-08-04] MEDS: CALCIUM GLUCONATE IN NS 0.9% 2,000 MG/100 ML BAG IV ONE (01:37)
[2023-08-04 05:08] LABS: ABG BASE EXCESS 11.7 mmol/L (-2.0-3.0); ABG HCO3 36.2 mmol/L (22.0-26.0); ABG OXYGEN SATURATION 89 % (94-98); ABG PCO2 46 mmHg (34-45); ABG PH 7.52 (7.35-7.45); ABG PO2 55 mmHg (80-100); ABG TCO2 37.6 MMOL/L (21.0-29.0); ALLEN TEST NEGATIVE
[2023-08-04 05:32] LABS: BASOPHILS % (AUTO) 0.1 %; EOSINOPHILS % (AUTO) 0.1 %; HCT - HEMATOCRIT 44.6 % (42.0-52.0); HGB - HEMOGLOBIN 14.5 g/dL (14.0-18.0); LYMPHOCYTES # (AUTO) 0.4 10^3/uL (1.5-3.5); LYMPHOCYTES % (AUTO) 2.8 %; MEAN CORPUSCULAR HGB CONC 32.5 g/dL (32.0-36.0); MEAN CORPUSCULAR VOLUME 95.3 fL (80.0-94.0); MEAN PLATELET VOLUME 9.7 fL (7.4-11.4); MONOCYTES # (AUTO) 0.6 10^3/uL (0.0-1.0); MONOCYTES % (AUTO) 4.4 %; NEUTROPHILS % (AUTO) 92.2 %; PLT - PLATELET COUNT 251 10^3/uL (130-450); RED BLOOD COUNT 4.68 10^6/uL (4.70-6.10); RED CELL DISTRIBUTION WIDTH 15.2 % (12.0-15.0); WHITE BLOOD COUNT 14.1 x10^3/uL (4.8-10.8)
[2023-08-04 05:48] LABS: MAGNESIUM 2.1 mg/dL (1.7-2.3); PHOSPHORUS 3.2 mg/dL (2.5-5.0)
[2023-08-04 05:54] LABS: CALCIUM 9.1 mg/dL (8.5-10.3); CREATININE 0.8 mg/dL (0.6-1.3); POTASSIUM 3.4 mmol/L (3.5-4.5)
[2023-08-04 06:07] LABS: CALCIUM, IONIZED 1.06 mmol/L (1.15-1.33); VBG PH 7.437 (7.31-7.41)
--- NOTE | 2023-08-04 08:20 | PROVIDER PROGRESS NOTE ---
Assessment/Plan - Problem List (1) Atrial fibrillation with RVR Assessment/Plan: - Goal is still rate control * Has not been stabilized on cardizem which was d/c * Continue with metoprolol and digoxin - BNP = today 1006 (since admission: 597, 955, 842) - Calf circumference B/L above sock line: * Today (08/04/23) L = 31.5 cm, R = 34 cm * Yesterday (08/03/23) = 29cm B/L (2) Respiratory failure Qualifiers: Chronicity: acute Respiratory failure complication: hypoxia Qualified Code(s): J96.01 - Acute respiratory failure with hypoxia Assessment/Plan: - Pt has been maintaining O2 target of 88% - 92% on O2 supp. - Brief episodes of SOB with activity - Continue Levalbuterol QID - Continue Atrovent QID - Continue methylprednisone - Continue bumetanide inj on emilia - Pt urine output 3285 mL today, monitor for decrease - Continue to check electrolytes and kidney function - Continue monitoring LE edema * Calf circumference B/L above sock line: * Today (08/04/23) L = 31.5 cm, R = 34 cm * Yesterday (08/03/23) = 29cm B/L (3) Acute on chronic systolic heart failure Assessment/Plan: - Goal: rate control * Metoprolol tartrate inj * PRN if HR > 110 for > 3 min * Metoprolol tartrate po * Hold ofr SBP less than 100 * Hold for HR less than 60 - Electrocardiogram completed 08/02/23 * Normal LV size and severely reduced systolic function 25-30% * Moderate mitral regurgitation (4) Restlessness and agitation Assessment/Plan: - Pt has been having increased episodes of confusion and agitation, trying to get up without assistance and moving his table, telling the nurses he wants to leave - His frustration is primarily d/t stress and worry about his as he is the primary caregiver (5) COPD (chronic obstructive pulmonary disease) Qualifiers: Emphysema type: unspecified Assessment/Plan: - PRN albuterol, pt reports daily use at home - Consider adding RPN long-acting bronchodilator upon discharge (6) Candidal intertrigo Assessment/Plan: - Continue nystatin powder BID, monitor for worsening symptoms - Current Meds Current Meds: Current Medications Generic Name Dose Route Start Last Admin Trade Name Freq PRN Reason Stop Dose Admin Apixaban 5 mg 08/02/23 11:00 08/03/23 21:12 Apixaban 5 Mg Tablet PO 5 mg BID EMILIA Administration Bumetanide 10 mg/ Sodium 250 mls @ 12.5 mls/hr 08/03/23 09:00 08/03/23 22:13 Chloride IV 0 mg/hr .Q20H EMILIA 0 mls/hr Titration Protocol 0.5 MG/HR Ipratropium Phillips 0.5 mg 08/02/23 19:00 08/04/23 07:25 Ipratropium 0.2 Mg/Ml Neb INH 0.5 mg RTQID EMILIA Administration Levalbuterol HCl 1.25 mg 08/01/23 16:46 08/02/23 14:36 Levalbuterol 1.25 Mg/3 Ml Neb INH 1.25 mg Q4H PRN Administration Shortness of Air/Wheezing Levalbuterol HCl 1.25 mg 08/02/23 19:00 08/04/23 07:25 Levalbuterol 1.25 Mg/3 Ml Neb INH 1.25 mg RTQID EMILIA Administration Methylprednisolone 40 mg 08/01/23 17:00 08/04/23 06:20 Methylprednisolone Succinate 40 Mg/Ml Vial IVP 40 mg TID EMILIA Administration Metoprolol Tartrate 50 mg 08/03/23 14:23 08/03/23 21:12 Metoprolol Tartrate 50 Mg Tablet PO 50 mg BID EMILIA Administration Metoprolol Tartrate 5 mg 08/03/23 18:46 08/03/23 21:38 Metoprolol 5 Mg/5 Ml Vial IVP 5 mg Q6H PRN Administration heart rate > 110 for >3 minute Nystatin 1 applic 08/02/23 11:00 08/03/23 21:12 Nystatin Powder 15 Gm TOP 1 applic BID EMILIA Administration Pantoprazole Sodium 40 mg 08/02/23 07:00 08/04/23 06:20 Pantoprazole 40 Mg Vial IVP 40 mg QDAC EMILIA Administration Polyethylene Glycol 17 gm 08/03/23 09:00 08/03/23 08:14 Polyethylene Glycol 3350 17 Gm Packet PO 17 gm DAILY EMILIA Administration Sodium Chloride 10 ml 08/01/23 17:00 08/04/23 01:05 Sodium Chloride Flush 0.9% 10 Ml Syringe IVP 10 ml 0100,0900,1700 EMILIA Administration Sodium Chloride 10 ml 08/01/23 16:34 08/02/23 06:16 Sodium Chloride Flush 0.9% 10 Ml Syringe IVP 10 ml PRN PRN Administration NEEDED PER PROVIDER ORDERS - Lab Result Fish Bone Diagrams: 08/05/23 05:19 08/05/23 05:19 Subjective - Subjective Patient Reports: Feeling Better (Progressively becoming aggitated and restless throughout the day), Resting Comfortably, No Complaints, Cough (productive, phlegmy), Other (Pt took walks around the unit with the nurses) Objective Vital Signs: Vital Signs - 24 hr 08/03/23 08/03/23 08/03/23 09:00 10:00 10:54 Temperature 36.4 C L Heart Rate Heart Rate [ 98 92 Monitoring electrodes] Respiratory 18 17 Rate Blood Pressure Blood Pressure 123/59 L 116/73 [Left Brachial artery] O2 Saturation 94 95 If not protocol 13 11 11 : Oxygen Flow, liters/minute 08/03/23 08/03/23 08/03/23 11:00 11:33 12:00 Temperature Heart Rate 88 Heart Rate [ 93 87 Monitoring electrodes] Respiratory 22 20 18 Rate Blood Pressure Blood Pressure 125/101 H 128/92 H [Left Brachial artery] O2 Saturation 93 91 L If not protocol 11 11 11 : Oxygen Flow, liters/minute 08/03/23 08/03/23 08/03/23 13:00 13:39 14:00 Temperature Heart Rate Heart Rate [ 105 H 82 Monitoring electrodes] Respiratory 24 19 Rate Blood Pressure 126/73 Blood Pressure 123/108 H 124/64 [Left Brachial artery] O2 Saturation 90 L 88 L If not protocol 7 7 : Oxygen Flow, liters/minute 08/03/23 08/03/23 08/03/23 15:00 15:18 15:58 Temperature 36.8 C Heart Rate 95 Heart Rate [ 89 Monitoring electrodes] Respiratory 19 16 Rate Blood Pressure 94/59 L Blood Pressure 94/59 L [Left Brachial artery] O2 Saturation 94 If not protocol 7 7 : Oxygen Flow, liters/minute 08/03/23 08/03/23 08/03/23 16:00 17:00 18:00 Temperature Heart Rate Heart Rate [ 84 94 100 Monitoring electrodes] Respiratory 17 20 17 Rate Blood Pressure Blood Pressure 117/72 119/68 101/80 [Left Brachial artery] O2 Saturation 93 89 L 96 If not protocol 7 7 7 : Oxygen Flow, liters/minute 08/03/23 08/03/23 08/03/23 18:39 19:00 19:12 Temperature Heart Rate 97 Heart Rate [ 94 Monitoring electrodes] Respiratory 18 24 Rate Blood Pressure Blood Pressure 124/70 [Left Brachial artery] O2 Saturation 99 If not protocol 7 7 7 : Oxygen Flow, liters/minute 08/03/23 08/03/23 08/03/23 20:00 21:00 21:12 Temperature 36.8 C Heart Rate Heart Rate [ 107 H 108 H Monitoring electrodes] Respiratory 14 18 Rate Blood Pressure 130/74 Blood Pressure 135/77 H 130/74 [Left Brachial artery] O2 Saturation 96 90 L If not protocol 7 7 : Oxygen Flow, liters/minute 08/03/23 08/03/23 08/03/23 21:38 21:40 21:45 Temperature Heart Rate Heart Rate [ 104 H 102 H Monitoring electrodes] Respiratory 17 19 Rate Blood Pressure 130/74 Blood Pressure 119/61 111/59 L [Left Brachial artery] O2 Saturation 91 L 88 L If not protocol 7 7 : Oxygen Flow, liters/minute 08/03/23 08/03/23 08/03/23 21:55 21:58 22:00 Temperature Heart Rate Heart Rate [ 97 98 102 H Monitoring electrodes] Respiratory 19 20 20 Rate Blood Pressure Blood Pressure 126/68 114/64 115/67 [Left Brachial artery] O2 Saturation 89 L 91 L 88 L If not protocol 7 7 7 : Oxygen Flow, liters/minute 08/03/23 08/03/23 08/03/23 22:07 22:08 22:15 Temperature Heart Rate Heart Rate [ 95 104 H Monitoring electrodes] Respiratory 17 21 Rate Blood Pressure 116/72 Blood Pressure 123/63 122/61 [Left Brachial artery] O2 Saturation 88 L 88 L If not protocol 7 7 : Oxygen Flow, liters/minute 08/03/23 08/03/23 08/04/23 22:30 23:00 00:00 Temperature Heart Rate Heart Rate [ 95 103 H 95 Monitoring electrodes] Respiratory 24 18 20 Rate Blood Pressure Blood Pressure 116/72 126/65 116/54 L [Left Brachial artery] O2 Saturation 90 L 91 L 92 If not protocol 7 7 7 : Oxygen Flow, liters/minute 08/04/23 08/04/23 08/04/23 01:00 02:00 03:00 Temperature Heart Rate Heart Rate [ 107 H 92 94 Monitoring electrodes] Respiratory 29 H 23 19 Rate Blood Pressure Blood Pressure 117/66 97/64 117/57 L [Left Brachial artery] O2 Saturation 90 L 96 If not protocol 7 10 10 : Oxygen Flow, liters/minute 08/04/23 08/04/23 08/04/23 04:00 05:00 06:00 Temperature 36.7 C Heart Rate Heart Rate [ 93 103 H 96 Monitoring electrodes] Respiratory 28 H 22 20 Rate Blood Pressure Blood Pressure 122/68 131/95 H 116/83 H [Left Brachial artery] O2 Saturation 91 L 93 91 L If not protocol 10 10 10 : Oxygen Flow, liters/minute 08/04/23 08/04/23 07:00 07:27 Temperature Heart Rate 94 Heart Rate [ 110 H Monitoring electrodes] Respiratory 19 22 Rate Blood Pressure Blood Pressure 128/89 H [Left Brachial artery] O2 Saturation 92 If not protocol 10 10 : Oxygen Flow, liters/minute Oxygen O2 Source [With Activity] Oxymizer O2 Source Oxymizer I&O (Last 24 Hrs): Intake and Output Totals x24h 08/02/23 08/03/23 08/04/23 23:59 23:59 23:59 Intake Total 2945.167 2310.825 890 Output Total 569 7080 1035 Balance 2376.167 -4769.175 -145 General: Alert, Oriented x3, Cooperative, No acute distress HEENT: Atraumatic, PERRLA, EOMI, Mucous membr. moist/pink Neck: Supple, No thyromegaly Lymphatic: no adenopathy Neuro: Alert, Disoriented (Pt becoming increasingly confused and frustrated, in and out of lucidty throughout the day.), Oriented Times 3 Cardiovascular: Other (irregularly irregular) Respiratory: Chest non-tender, Rales Abdomen: Normal bowel sounds, Soft, No tenderness Extremities: No cyanosis, Other (b/l LE edema, calves measured) Comments/Notes: Pt becoming increasingly confused and frustrated, in and out of lucidty throughout the day. He has been expressing frustration about still being in the hospital away from his for whom he is the primary caregiver. He had a few episodes of trying to get out of his chair on his own, wanting to "catch a ride with someone and get out of here", actively attempting to move his table that was strategically placed by the nurses to not move for his safety. During these episodes his BP and HR increased. - Results Results: Laboratory Results WBC 14.1 x10^3/uL (4.8-10.8) H 08/04/23 04:41 RBC 4.68 10^6/uL (4.70-6.10) L 08/04/23 04:41 Hgb 14.5 g/dL (14.0-18.0) 08/04/23 04:41 Hct 44.6 % (42.0-52.0) 08/04/23 04:41 MCV 95.3 fL (80.0-94.0) H 08/04/23 04:41 MCH 31.0 pg (27.0-31.0) 08/04/23 04:41 MCHC 32.5 g/dL (32.0-36.0) 08/04/23 04:41 RDW 15.2 % (12.0-15.0) H 08/04/23 04:41 Plt Count 251 10^3/uL (130-450) 08/04/23 04:41 MPV 9.7 fL (7.4-11.4) 08/04/23 04:41 Neut # (Auto) 13.0 10^3/uL (1.5-6.6) H 08/04/23 04:41 Lymph # (Auto) 0.4 10^3/uL (1.5-3.5) L 08/04/23 04:41 [place] # (Auto) 0.6 10^3/uL (0.0-1.0) 08/04/23 04:41 Eos # (Auto) 0.0 10^3/uL (0.0-0.7) 08/04/23 04:41 Baso # (Auto) 0.0 10^3/uL (0.0-0.1) 08/04/23 04:41 Absolute Nucleated RBC 0.00 x10^3/uL 08/04/23 04:41 Nucleated RBC % 0.0 /100WBC 08/04/23 04:41 PT 15.2 secs (9.9-12.6) H 08/01/23 14:48 INR 1.4 (0.8-1.2) H 08/01/23 14:48 Bld Gas Analysis Time 0458 08/04/23 04:50 Sample Site RIGHT BRACHIAL 08/04/23 04:50 ABG pH 7.52 (7.35-7.45) H 08/04/23 04:50 ABG pCO2 46 mmHg (34-45) H 08/04/23 04:50 ABG pO2 55 mmHg (80-100) L 08/04/23 04:50 ABG HCO3 36.2 mmol/L (22.0-26.0) H 08/04/23 04:50 ABG Total CO2 37.6 MMOL/L (21.0-29.0) H 08/04/23 04:50 ABG O2 Saturation 89 % (94-98) L 08/04/23 04:50 ABG Base Excess 11.7 mmol/L (-2.0-3.0) H 08/04/23 04:50 Harvinder Test NEGATIVE 08/04/23 04:50 VBG pH 7.437 (7.31-7.41) H 08/04/23 04:41 Ionized Calcium 1.06 mmol/L (1.15-1.33) L 08/04/23 04:41 O2 Delivery Device OXYMASK 08/04/23 04:50 O2 Liters/Min 12.00 LPM 08/04/23 04:50 FiO2 68.00 08/04/23 04:50 EPAP 4 cmH2O 08/01/23 15:52 IPAP 8 cmH2O 08/01/23 15:52 Sodium 138 mmol/L (135-145) 08/04/23 04:41 Potassium 3.4 mmol/L (3.5-4.5) L 08/04/23 04:41 Chloride 89 mmol/L (101-111) L 08/04/23 04:41 Carbon Dioxide 43 mmol/L (21-32) H* 08/04/23 04:41 Anion Gap 6.0 (6-13) 08/04/23 04:41 BUN 26 mg/dL (6-20) H 08/04/23 04:41 Creatinine 0.8 mg/dL (0.6-1.3) 08/04/23 04:41 Estimated GFR (MDRD) 95 (>89) 08/04/23 04:41 Glucose 102 mg/dL (74-104) 08/04/23 04:41 Calcium 9.1 mg/dL (8.5-10.3) 08/04/23 04:41 Phosphorus 3.2 mg/dL (2.5-5.0) 08/04/23 04:41 Magnesium 2.1 mg/dL (1.7-2.3) 08/04/23 04:41 Total Bilirubin 0.8 mg/dL (0.2-1.0) 08/01/23 14:48 AST 25 IU/L (10-42) 08/01/23 14:48 ALT 36 IU/L (10-60) 08/01/23 14:48 Alkaline Phosphatase 74 IU/L (42-121) 08/01/23 14:48 Troponin I High Sens 2.8 ng/L (2.3-19.7) 08/02/23 08:56 B-Natriuretic Peptide 1006 pg/mL (5-100) H 08/04/23 04:41 Total Protein 7.2 g/dL (6.4-8.9) 08/01/23 14:48 Albumin 3.7 g/dL (3.2-5.5) 08/01/23 14:48 Globulin 3.5 g/dL (2.1-4.2) 08/01/23 14:48 Albumin/Globulin Ratio 1.1 (1.0-2.2) 08/01/23 14:48 Lipase 28 U/L (11-82) 08/01/23 14:48 TSH 0.92 uIU/mL (0.34-5.60) 08/02/23 08:56 Urine Color DARK YELLOW 08/01/23 16:00 Urine Clarity CLEAR (CLEAR) 08/01/23 16:00 Urine pH 6.0 PH (5.0-7.5) 08/01/23 16:00 Ur Specific [place] 1.020 (1.002-1.030) 08/01/23 16:00 Urine Protein TRACE mg/dL (NEGATIVE) 08/01/23 16:00 Urine Glucose (UA) NEGATIVE mg/dL (NEGATIVE) 08/01/23 16:00 Urine Ketones NEGATIVE mg/dL (NEGATIVE) 08/01/23 16:00 Urine Occult Blood NEGATIVE (NEGATIVE) 08/01/23 16:00 Urine Nitrite NEGATIVE (NEGATIVE) 08/01/23 16:00 Urine Bilirubin NEGATIVE (NEGATIVE) 08/01/23 16:00 Urine Urobilinogen 1 (NORMAL) E.U./dL (NORMAL) 08/01/23 16:00 Ur Leukocyte Esterase NEGATIVE (NEGATIVE) 08/01/23 16:00 Ur Microscopic Review NOT INDICATED 08/01/23 16:00 Urine Culture Comments NOT INDICATED 08/01/23 16:00 Nasal Adenovirus (PCR) NOT DETECTED 08/01/23 15:58 Nasal B. parapertussis DNA (PCR) NOT DETECTED 08/01/23 15:58 Nasal Coronavir 229E PCR NOT DETECTED 08/01/23 15:58 Nasal Coronavir HKU1 PCR NOT DETECTED 08/01/23 15:58 Nasal Coronavir NL63 PCR NOT DETECTED 08/01/23 15:58 Nasal Coronavir OC43 PCR NOT DETECTED 08/01/23 15:58 Nasal Enterovir/Rhinovir PCR NOT DETECTED 08/01/23 15:58 Nasal Influenza B PCR NOT DETECTED 08/01/23 15:58 Nasal Influenza A PCR NOT DETECTED 08/01/23 15:58 Nasal Parainfluen 1 PCR NOT DETECTED 08/01/23 15:58 Nasal Parainfluen 2 PCR NOT DETECTED 08/01/23 15:58 Nasal Parainfluen 3 PCR NOT DETECTED 08/01/23 15:58 Nasal Parainfluen 4 PCR NOT DETECTED 08/01/23 15:58 Nasal RSV (PCR) NOT DETECTED 08/01/23 15:58 Nasal Screen MRSA (PCR) NEGATIVE (NEGATIVE) 08/01/23 15:45 Nasal B.pertussis DNA PCR NOT DETECTED 08/01/23 15:58 Nasal C.pneumoniae (PCR) NOT DETECTED 08/01/23 15:58 Sean Human Metapneumo PCR NOT DETECTED 08/01/23 15:58 Nasal M.pneumoniae (PCR) NOT DETECTED 08/01/23 15:58 Nasal SARS-CoV-2 (PCR) NOT DETECTED 08/01/23 15:58 Urine Opiates Screen NEGATIVE (NEGATIVE) 08/01/23 16:00 Ur Buprenorphine Scrn NEGATIVE (NEGATIVE) 08/01/23 16:00 Ur Oxycodone Screen NEGATIVE (NEGATIVE) 08/01/23 16:00 Urine Methadone Screen NEGATIVE (NEGATIVE) 08/01/23 16:00 Ur Barbiturates Screen NEGATIVE (NEGATIVE) 08/01/23 16:00 Ur Tricyclics Screen NEGATIVE (NEGATIVE) 08/01/23 16:00 Ur Phencyclidine Scrn NEGATIVE (NEGATIVE) 08/01/23 16:00 Ur Amphetamine Screen NEGATIVE (NEGATIVE) 08/01/23 16:00 U Methamphetamines Scrn NEGATIVE (NEGATIVE) 08/01/23 16:00 U Benzodiazepines Scrn NEGATIVE (NEGATIVE) 08/01/23 16:00 Urine Cocaine Screen NEGATIVE (NEGATIVE) 08/01/23 16:00 U Cannabinoids Screen NEGATIVE (NEGATIVE) 08/01/23 16:00 Ur Drug Screen Comment CUTOFF CONC BELOW: 08/01/23 16:00 Ethyl Alcohol < 10.0 mg/dL 08/01/23 14:48
[2023-08-04] MEDS: DIGOXIN 500 MCG/2 ML AMP IVP SCH (08:27)
[2023-08-04 08:58] LABS: CALCIUM, IONIZED 1.06 mmol/L (1.15-1.33); VBG PH 7.474 (7.31-7.41)
[2023-08-04 09:04] LABS: MAGNESIUM 1.9 mg/dL (1.7-2.3); PHOSPHORUS 3.3 mg/dL (2.5-5.0); POTASSIUM 3.4 mmol/L (3.5-4.5)
[2023-08-04] MEDS: POTASSIUM CHLORIDE 20 MEQ TABLET PO SCH (09:56)
[2023-08-04] MEDS: CALCIUM GLUC 1,000MG/50ML-NACL 1,000 MG/50 ML BAG IV ONE ×2 (09:56→18:00)
[2023-08-04] MEDS ORDERED: MAGNESIUM SULFATE 2 GRAM 2 GM/50 ML BAG IV SCH (10:00)
[2023-08-04 17:14] LABS: VBG PH 7.523 (7.31-7.41)
[2023-08-04 17:22] LABS: MAGNESIUM 1.9 mg/dL (1.7-2.3); POTASSIUM 3.9 mmol/L (3.5-4.5)
[2023-08-04 17:27] LABS: PHOSPHORUS 2.5 mg/dL (2.5-5.0)
[2023-08-04] MEDS: METOPROLOL 5 MG/5 ML VIAL IVP STA (17:59)
[2023-08-04] MEDS ORDERED: cefTRIAXone 1 GM VIAL ONE (18:13)
[2023-08-04] MEDS: cefTRIAXone 1 GM in SODIUM CHLORIDE 0.9% MINIBAG 100 ML IV SCH (18:14)
[2023-08-04 18:15] LABS: BILIRUBIN,URINE NEGATIVE (NEGATIVE); GLUCOSE, URINE (UA) NEGATIVE (NEGATIVE); KETONES,URINE (UA) NEGATIVE (NEGATIVE); LEUKOCYTE ESTERASE, URINE NEGATIVE (NEGATIVE); NITRITE,URINE NEGATIVE (NEGATIVE); OCCULT BLOOD,URINE TRACE-INTA (NEGATIVE); PROTEIN,URINE NEGATIVE (NEGATIVE); UROBILINOGEN,URINE 0.2 (NORMAL) E.U./dL (NORMAL)
[2023-08-04 18:16] LABS: CLARITY,URINE CLEAR (CLEAR)
[2023-08-04] MEDS: POTASSIUM CHLOR 10 MEQ/100 ML 10 MEQ/100 ML BAG IV SCH (18:17)
[2023-08-04] MEDS: DOXYCYCLINE INJ 100 MG in SODIUM CHLORIDE 0.9% MINIBAG 100 ML IV SCH (18:53)
[2023-08-04] MEDS: AMPICILLIN/SULBACTAM 3 GM in SODIUM CHLORIDE 0.9% MINIBAG 100 ML IV SCH (18:59)
[2023-08-04] MEDS: BUMETANIDE 1 MG/4 ML VIAL IVP SCH (19:50)
[2023-08-04] MEDS: METOPROLOL TARTRATE 50 MG TABLET PO SCH (20:42)
[2023-08-04 23:28] LABS: CALCIUM, IONIZED 1.03 mmol/L (1.15-1.33); VBG PH 7.544 (7.31-7.41)
[2023-08-04] MEDS: HALOPERIDOL 5 MG/ML VIAL IVP ONE (23:39)
[2023-08-04 23:47] LABS: MAGNESIUM 1.6 mg/dL (1.7-2.3); PHOSPHORUS 3.1 mg/dL (2.5-5.0); POTASSIUM 3.8 mmol/L (3.5-4.5)
[2023-08-05] MEDS: POTASSIUM CHLOR 10 MEQ/100 ML 10 MEQ/100 ML BAG IV SCH (05:20)
[2023-08-05] MEDS: CALCIUM GLUC 1,000MG/50ML-NACL 1,000 MG/50 ML BAG IV ONE ×3 (05:21→21:08)
[2023-08-05] MEDS: MAGNESIUM SULFATE 2 GRAM 2 GM/50 ML BAG IV ONE ×2 (05:21→08:03)
[2023-08-05 05:29] LABS: BASOPHILS % (AUTO) 0.1 %; EOSINOPHILS % (AUTO) 0.1 %; HGB - HEMOGLOBIN 15.2 g/dL (14.0-18.0); LYMPHOCYTES # (AUTO) 0.4 10^3/uL (1.5-3.5); LYMPHOCYTES % (AUTO) 3.7 %; MEAN CORPUSCULAR HEMOGLOBIN 30.6 pg (27.0-31.0); MEAN CORPUSCULAR HGB CONC 31.7 g/dL (32.0-36.0); MEAN CORPUSCULAR VOLUME 96.8 fL (80.0-94.0); MEAN PLATELET VOLUME 9.7 fL (7.4-11.4); MONOCYTES # (AUTO) 0.5 10^3/uL (0.0-1.0); NEUTROPHILS % (AUTO) 91.7 %; PLT - PLATELET COUNT 263 10^3/uL (130-450); RED BLOOD COUNT 4.96 10^6/uL (4.70-6.10); RED CELL DISTRIBUTION WIDTH 15.5 % (12.0-15.0)
[2023-08-05 05:40] LABS: CALCIUM, IONIZED 1.06 mmol/L (1.15-1.33); VBG PH 7.444 (7.31-7.41)
[2023-08-05 05:49] LABS: CALCIUM 8.6 mg/dL (8.5-10.3); CREATININE 0.6 mg/dL (0.6-1.3); POTASSIUM 3.9 mmol/L (3.5-4.5)
[2023-08-05 06:29] LABS: MAGNESIUM 1.6 mg/dL (1.7-2.3)
[2023-08-05 06:34] LABS: PHOSPHORUS 3.6 mg/dL (2.5-5.0)
--- NOTE | 2023-08-05 07:47 | PROVIDER PROGRESS NOTE ---
Assessment/Plan - Problem List (1) Atrial fibrillation with RVR Assessment/Plan: - Continued goal: rate control, - Continue with metoprolol and digoxin - BNP = today and yesterday 1006 (since admission: 597, 955, 842) - Continue Apixaban to reduce risk of stroke and possible systemic embolism - Continue Metoprolol Tartrate for rate control. Adjust dose based on HR and BP - To start Lisinopril to reduce afterload, improve cardiac output - To manage electrolytes consider potassium and magnesium - Calf circumference B/L above sock line: * Today: L= 31 cm, R = 28.5 cm * Yesterday (08/04/23) L = 31.5 cm, R = 34 cm (2) Respiratory failure Qualifiers: Chronicity: acute Respiratory failure complication: hypoxia Qualified Code(s): J96.01 - Acute respiratory failure with hypoxia Assessment/Plan: - Pt has been maintaining O2 target of 88% - 92% on O2 supp. - Brief episodes of SOB, mild dizziness with activity - has been taking walks around the unit with the nurses - Continue Levalbuterol and Atrovent QID - Continue methylprednisone - Continue bumetanide inj on emilia - Continue to monitor urine output - Continue to check electrolytes and kidney function * consider potassium and magnesium supplementation to correct metabolic alkalosis - Continue monitoring LE edema * - Calf circumference B/L above sock line: * Today: L= 31 cm, R = 28.5 cm * Yesterday (08/04/23) L = 31.5 cm, R = 34 cm (3) Acute on chronic systolic heart failure Assessment/Plan: - Goal: rate control - Continue metoprolol tartrate - Metoprolol tartrate inj * PRN if HR > 110 for > 3 min - Metoprolol tartrate po * Hold ofr SBP less than 100 * Hold for HR less than 60 (4) COPD (chronic obstructive pulmonary disease) Qualifiers: Emphysema type: unspecified Assessment/Plan: - Continue O2 support and respiratory failure treatment - Consider adding RPN long-acting bronchodilator upon discharge (5) Candidal intertrigo Assessment/Plan: - Continue nystatin powder BID, monitor for worsening symptoms (6) Delirium due to known physiological condition Assessment/Plan: - I checked on the patients 3x today and he was in various states of lucidity and confusion - Haldol inj administered last night by telemed provider * QT prolongation was monitored - UA yesterday was negative - Likely multifactorial d/t hypoxia, hypercapnia, metabolic disturbances (7) Restlessness and agitation Assessment/Plan: - Improved today, was able to walk around unit with nurses - Haldol inj administered last night by telemed provider * QT prolongation was monitored (8) Pneumonia, unspecified organism Qualifiers: Laterality: unspecified laterality Lung location: unspecified part of lung Qualified Code(s): J18.9 - Pneumonia, unspecified organism Assessment/Plan: - Ceftriaxone and doxy adminstered yesterday - Current Meds Current Meds: Current Medications Generic Name Dose Route Start Last Admin Trade Name Freq PRN Reason Stop Dose Admin Apixaban 5 mg 08/02/23 11:00 08/04/23 20:43 Apixaban 5 Mg Tablet PO 5 mg BID EMILIA Administration Bumetanide 1 mg 08/04/23 19:13 08/04/23 19:50 Bumetanide 1 Mg/4 Ml Vial IVP 1 mg DAILY EMILIA Administration Digoxin 250 mcg 08/04/23 09:00 08/04/23 08:27 Digoxin 500 Mcg/2 Ml Amp IVP 250 mcg DAILY EMILIA Administration Ampicillin Sodium/Sulbactam 100 mls @ 200 mls/hr 08/04/23 18:00 08/05/23 07:02 Sodium 3 gm/ Sodium Chloride IV Infused Q6HR EMILIA Infusion Ceftriaxone Sodium 1 gm/ 100 mls @ 200 mls/hr 08/04/23 17:42 08/04/23 19:34 Sodium Chloride IV Infused DAILY EMILIA Infusion Doxycycline Hyclate 100 mg/ 100 mls @ 100 mls/hr 08/04/23 17:43 08/04/23 22:09 Sodium Chloride IV Infused BID EMILIA Infusion Ipratropium [place] 0.5 mg 08/02/23 19:00 08/05/23 07:34 Ipratropium 0.2 Mg/Ml Neb INH 0.5 mg RTQID EMILIA Administration Levalbuterol HCl 1.25 mg 08/01/23 16:46 08/02/23 14:36 Levalbuterol 1.25 Mg/3 Ml Neb INH 1.25 mg Q4H PRN Administration Shortness of Air/Wheezing Levalbuterol HCl 1.25 mg 08/02/23 19:00 08/05/23 07:34 Levalbuterol 1.25 Mg/3 Ml Neb INH 1.25 mg RTQID EMILIA Administration Methylprednisolone 40 mg 08/01/23 17:00 08/05/23 05:53 Methylprednisolone Succinate 40 Mg/Ml Vial IVP 40 mg TID EMILIA Administration Metoprolol Tartrate 5 mg 08/03/23 18:46 08/04/23 22:15 Metoprolol 5 Mg/5 Ml Vial IVP 5 mg Q6H PRN Administration heart rate > 110 for >3 minute Metoprolol Tartrate 100 mg 08/04/23 21:00 08/04/23 20:42 Metoprolol Tartrate 50 Mg Tablet PO 100 mg BID EMILIA Administration Nystatin 1 applic 08/02/23 11:00 08/04/23 21:28 Nystatin Powder 15 Gm TOP 1 applic BID EMILIA Administration Pantoprazole Sodium 40 mg 08/02/23 07:00 08/05/23 06:58 Pantoprazole 40 Mg Vial IVP 40 mg QDAC EMILIA Administration Polyethylene Glycol 17 gm 08/03/23 09:00 08/04/23 08:28 Polyethylene Glycol 3350 17 Gm Packet PO 17 gm DAILY EMILIA Administration Sodium Chloride 10 ml 08/01/23 17:00 08/04/23 23:36 Sodium Chloride Flush 0.9% 10 Ml Syringe IVP 10 ml 0100,0900,1700 EMILIA Administration Sodium Chloride 10 ml 08/01/23 16:34 08/02/23 06:16 Sodium Chloride Flush 0.9% 10 Ml Syringe IVP 10 ml PRN PRN Administration NEEDED PER PROVIDER ORDERS - Lab Result Fish Bone Diagrams: 08/05/23 05:19 08/05/23 05:19 Subjective - Subjective Patient Reports: Resting Comfortably, Dizzines (on exertion, walking around the unit), Shortness of Breath (on exertion, walking around the unit) Objective Vital Signs: Vital Signs - 24 hr 08/04/23 08/04/23 08/04/23 08:00 08:26 08:27 Temperature Heart Rate 102 H Heart Rate [ 110 H Monitoring electrodes] Respiratory 20 Rate Blood Pressure 119/70 Blood Pressure 119/70 [Left Brachial artery] O2 Saturation 93 If not protocol 10 : Oxygen Flow, liters/minute 08/04/23 08/04/23 08/04/23 09:00 10:00 11:00 Temperature 36.9 C Heart Rate Heart Rate [ 93 102 H 94 Monitoring electrodes] Respiratory 22 18 19 Rate Blood Pressure Blood Pressure 126/71 134/66 H 125/73 [Left Brachial artery] O2 Saturation 97 93 95 If not protocol 10 10 10 : Oxygen Flow, liters/minute 08/04/23 08/04/23 08/04/23 11:30 12:00 13:00 Temperature Heart Rate 84 Heart Rate [ 89 99 Monitoring electrodes] Respiratory 20 17 20 Rate Blood Pressure Blood Pressure 128/66 139/72 H [Left Brachial artery] O2 Saturation 97 96 If not protocol 10 8 8 : Oxygen Flow, liters/minute 08/04/23 08/04/23 08/04/23 14:00 15:00 16:00 Temperature 37.2 C Heart Rate Heart Rate [ 96 102 H 108 H Monitoring electrodes] Respiratory 18 15 17 Rate Blood Pressure Blood Pressure 118/63 143/89 H 135/83 H [Left Brachial artery] O2 Saturation 92 95 96 If not protocol 8 8 8 : Oxygen Flow, liters/minute 08/04/23 08/04/23 08/04/23 17:00 17:59 18:00 Temperature Heart Rate Heart Rate [ 122 H 107 H Monitoring electrodes] Respiratory 20 22 Rate Blood Pressure 151/97 H Blood Pressure 135/83 H 128/83 H [Left Brachial artery] O2 Saturation 92 95 If not protocol 8 8 : Oxygen Flow, liters/minute 08/04/23 08/04/23 08/04/23 19:00 20:00 20:15 Temperature Heart Rate Heart Rate [ 108 H 111 H Monitoring electrodes] Respiratory 19 24 Rate Blood Pressure Blood Pressure 124/90 H 150/97 H [Left Brachial artery] O2 Saturation 95 95 If not protocol 8 8 7 : Oxygen Flow, liters/minute 08/04/23 08/04/23 08/04/23 20:42 21:00 22:00 Temperature Heart Rate 131 H Heart Rate [ 120 H 119 H Monitoring electrodes] Respiratory 24 18 24 Rate Blood Pressure 125/79 Blood Pressure 129/91 H 130/94 H [Left Brachial artery] O2 Saturation 92 95 If not protocol 7 8 8 : Oxygen Flow, liters/minute 08/04/23 08/04/23 08/04/23 22:15 22:26 22:30 Temperature 37.0 C Heart Rate Heart Rate [ 119 H 117 H Monitoring electrodes] Respiratory 24 Rate Blood Pressure 130/94 H Blood Pressure 133/85 H 126/103 H [Left Brachial artery] O2 Saturation 92 If not protocol 8 : Oxygen Flow, liters/minute 08/04/23 08/04/23 08/04/23 22:40 22:45 22:50 Temperature Heart Rate Heart Rate [ 117 H 118 H Monitoring electrodes] Respiratory Rate Blood Pressure 115/96 H Blood Pressure 128/74 115/96 H [Left Brachial artery] O2 Saturation If not protocol : Oxygen Flow, liters/minute 08/04/23 08/05/23 08/05/23 23:01 00:00 01:00 Temperature Heart Rate Heart Rate [ 113 H 113 H 120 H Monitoring electrodes] Respiratory 25 H 26 H 25 H Rate Blood Pressure Blood Pressure 132/100 H 123/89 H 135/97 H [Left Brachial artery] O2 Saturation 93 94 94 If not protocol 8 10 10 : Oxygen Flow, liters/minute 08/05/23 08/05/23 08/05/23 02:00 03:00 04:00 Temperature Heart Rate Heart Rate [ 117 H 111 H 100 Monitoring electrodes] Respiratory 24 25 H 24 Rate Blood Pressure Blood Pressure [Left Brachial artery] O2 Saturation If not protocol 10 10 10 : Oxygen Flow, liters/minute 08/05/23 08/05/23 08/05/23 05:00 06:00 07:00 Temperature Heart Rate Heart Rate [ 100 106 H 111 H Monitoring electrodes] Respiratory 24 20 20 Rate Blood Pressure Blood Pressure 135/100 H 133/93 H 128/93 H [Left Brachial artery] O2 Saturation 92 92 90 L If not protocol 8 6 6 : Oxygen Flow, liters/minute 08/05/23 07:36 Temperature Heart Rate 114 H Heart Rate [ Monitoring electrodes] Respiratory 18 Rate Blood Pressure Blood Pressure [Left Brachial artery] O2 Saturation If not protocol 5 : Oxygen Flow, liters/minute Oxygen O2 Source [With Activity] Oxymizer O2 Source Oxymizer I&O (Last 24 Hrs): Intake and Output Totals x24h 08/03/23 08/04/23 08/05/23 23:59 23:59 23:59 Intake Total 2310.825 2230 200 Output Total 7080 3285 960 Balance -4769.175 -1055 -760 General: Alert, Cooperative HEENT: Atraumatic, PERRLA, Mucous membr. moist/pink Neck: Supple, No thyromegaly Lymphatic: no adenopathy Neuro: Alert, Other (in and out of lucidity and confusion regarding people or events he has not been interacting with daily. Recognizes providers, nurses, and the student.) Cardiovascular: Other (irregularly irregular) Respiratory: Chest non-tender Abdomen: Normal bowel sounds, Soft, No tenderness - Results Results: Laboratory Results WBC 12.0 x10^3/uL (4.8-10.8) H 08/05/23 05:19 RBC 4.96 10^6/uL (4.70-6.10) 08/05/23 05:19 Hgb 15.2 g/dL (14.0-18.0) 08/05/23 05:19 Hct 48.0 % (42.0-52.0) 08/05/23 05:19 MCV 96.8 fL (80.0-94.0) H 08/05/23 05:19 MCH 30.6 pg (27.0-31.0) 08/05/23 05:19 MCHC 31.7 g/dL (32.0-36.0) L 08/05/23 05:19 RDW 15.5 % (12.0-15.0) H 08/05/23 05:19 Plt Count 263 10^3/uL (130-450) 08/05/23 05:19 MPV 9.7 fL (7.4-11.4) 08/05/23 05:19 Neut # (Auto) 11.0 10^3/uL (1.5-6.6) H 08/05/23 05:19 Lymph # (Auto) 0.4 10^3/uL (1.5-3.5) L 08/05/23 05:19 [place] # (Auto) 0.5 10^3/uL (0.0-1.0) 08/05/23 05:19 Eos # (Auto) 0.0 10^3/uL (0.0-0.7) 08/05/23 05:19 Baso # (Auto) 0.0 10^3/uL (0.0-0.1) 08/05/23 05:19 Absolute Nucleated RBC 0.00 x10^3/uL 08/05/23 05:19 Nucleated RBC % 0.0 /100WBC 08/05/23 05:19 PT 15.2 secs (9.9-12.6) H 08/01/23 14:48 INR 1.4 (0.8-1.2) H 08/01/23 14:48 Bld Gas Analysis Time 0458 08/04/23 04:50 Sample Site RIGHT BRACHIAL 08/04/23 04:50 ABG pH 7.52 (7.35-7.45) H 08/04/23 04:50 ABG pCO2 46 mmHg (34-45) H 08/04/23 04:50 ABG pO2 55 mmHg (80-100) L 08/04/23 04:50 ABG HCO3 36.2 mmol/L (22.0-26.0) H 08/04/23 04:50 ABG Total CO2 37.6 MMOL/L (21.0-29.0) H 08/04/23 04:50 ABG O2 Saturation 89 % (94-98) L 08/04/23 04:50 ABG Base Excess 11.7 mmol/L (-2.0-3.0) H 08/04/23 04:50 Harvinder Test NEGATIVE 08/04/23 04:50 VBG pH 7.444 (7.31-7.41) H 08/05/23 05:19 Ionized Calcium 1.06 mmol/L (1.15-1.33) L 08/05/23 05:19 O2 Delivery Device OXYMASK 08/04/23 04:50 O2 Liters/Min 12.00 LPM 08/04/23 04:50 FiO2 68.00 08/04/23 04:50 EPAP 4 cmH2O 08/01/23 15:52 IPAP 8 cmH2O 08/01/23 15:52 Sodium 139 mmol/L (135-145) 08/05/23 05:19 Potassium 3.9 mmol/L (3.5-4.5) 08/05/23 05:19 Chloride 94 mmol/L (101-111) L 08/05/23 05:19 Carbon Dioxide 42 mmol/L (21-32) H* 08/05/23 05:19 Anion Gap 3.0 (6-13) L 08/05/23 05:19 BUN 20 mg/dL (6-20) 08/05/23 05:19 Creatinine 0.6 mg/dL (0.6-1.3) 08/05/23 05:19 Estimated GFR (MDRD) 132 (>89) 08/05/23 05:19 Glucose 131 mg/dL (74-104) H 08/05/23 05:19 Calcium 8.6 mg/dL (8.5-10.3) 08/05/23 05:19 Phosphorus 3.6 mg/dL (2.5-5.0) 08/05/23 05:19 Magnesium 1.6 mg/dL (1.7-2.3) L 08/05/23 05:19 Total Bilirubin 0.8 mg/dL (0.2-1.0) 08/01/23 14:48 AST 25 IU/L (10-42) 08/01/23 14:48 ALT 36 IU/L (10-60) 08/01/23 14:48 Alkaline Phosphatase 74 IU/L (42-121) 08/01/23 14:48 Troponin I High Sens 2.8 ng/L (2.3-19.7) 08/02/23 08:56 B-Natriuretic Peptide 1660 pg/mL (5-100) H 08/05/23 05:19 Total Protein 7.2 g/dL (6.4-8.9) 08/01/23 14:48 Albumin 3.7 g/dL (3.2-5.5) 08/01/23 14:48 Globulin 3.5 g/dL (2.1-4.2) 08/01/23 14:48 Albumin/Globulin Ratio 1.1 (1.0-2.2) 08/01/23 14:48 Lipase 28 U/L (11-82) 08/01/23 14:48 TSH 0.92 uIU/mL (0.34-5.60) 08/02/23 08:56 Urine Color YELLOW 08/04/23 17:53 Urine Clarity CLEAR (CLEAR) 08/04/23 17:53 Urine pH 7.0 PH (5.0-7.5) 08/04/23 17:53 Ur Specific [place] 1.015 (1.002-1.030) 08/04/23 17:53 Urine Protein NEGATIVE mg/dL (NEGATIVE) 08/04/23 17:53 Urine Glucose (UA) NEGATIVE mg/dL (NEGATIVE) 08/04/23 17:53 Urine Ketones NEGATIVE mg/dL (NEGATIVE) 08/04/23 17:53 Urine Occult Blood TRACE-INTA (NEGATIVE) 08/04/23 17:53 Urine Nitrite NEGATIVE (NEGATIVE) 08/04/23 17:53 Urine Bilirubin NEGATIVE (NEGATIVE) 08/04/23 17:53 Urine Urobilinogen 0.2 (NORMAL) E.U./dL (NORMAL) 08/04/23 17:53 Ur Leukocyte Esterase NEGATIVE (NEGATIVE) 08/04/23 17:53 Ur Microscopic Review NOT INDICATED 08/04/23 17:53 Urine Culture Comments NOT INDICATED 08/04/23 17:53 Nasal Adenovirus (PCR) NOT DETECTED 08/01/23 15:58 Nasal B. parapertussis DNA (PCR) NOT DETECTED 08/01/23 15:58 Nasal Coronavir 229E PCR NOT DETECTED 08/01/23 15:58 Nasal Coronavir HKU1 PCR NOT DETECTED 08/01/23 15:58 Nasal Coronavir NL63 PCR NOT DETECTED 08/01/23 15:58 Nasal Coronavir OC43 PCR NOT DETECTED 08/01/23 15:58 Nasal Enterovir/Rhinovir PCR NOT DETECTED 08/01/23 15:58 Nasal Influenza B PCR NOT DETECTED 08/01/23 15:58 Nasal Influenza A PCR NOT DETECTED 08/01/23 15:58 Nasal Parainfluen 1 PCR NOT DETECTED 08/01/23 15:58 Nasal Parainfluen 2 PCR NOT DETECTED 08/01/23 15:58 Nasal Parainfluen 3 PCR NOT DETECTED 08/01/23 15:58 Nasal Parainfluen 4 PCR NOT DETECTED 08/01/23 15:58 Nasal RSV (PCR) NOT DETECTED 08/01/23 15:58 Nasal Screen MRSA (PCR) NEGATIVE (NEGATIVE) 08/01/23 15:45 Nasal B.pertussis DNA PCR NOT DETECTED 08/01/23 15:58 Nasal C.pneumoniae (PCR) NOT DETECTED 08/01/23 15:58 Sean Human Metapneumo PCR NOT DETECTED 08/01/23 15:58 Nasal M.pneumoniae (PCR) NOT DETECTED 08/01/23 15:58 Nasal SARS-CoV-2 (PCR) NOT DETECTED 08/01/23 15:58 Urine Opiates Screen NEGATIVE (NEGATIVE) 08/01/23 16:00 Ur Buprenorphine Scrn NEGATIVE (NEGATIVE) 08/01/23 16:00 Ur Oxycodone Screen NEGATIVE (NEGATIVE) 08/01/23 16:00 Urine Methadone Screen NEGATIVE (NEGATIVE) 08/01/23 16:00 Ur Barbiturates Screen NEGATIVE (NEGATIVE) 08/01/23 16:00 Ur Tricyclics Screen NEGATIVE (NEGATIVE) 08/01/23 16:00 Ur Phencyclidine Scrn NEGATIVE (NEGATIVE) 08/01/23 16:00 Ur Amphetamine Screen NEGATIVE (NEGATIVE) 08/01/23 16:00 U Methamphetamines Scrn NEGATIVE (NEGATIVE) 08/01/23 16:00 U Benzodiazepines Scrn NEGATIVE (NEGATIVE) 08/01/23 16:00 Urine Cocaine Screen NEGATIVE (NEGATIVE) 08/01/23 16:00 U Cannabinoids Screen NEGATIVE (NEGATIVE) 08/01/23 16:00 Ur Drug Screen Comment CUTOFF CONC BELOW: 08/01/23 16:00 Ethyl Alcohol < 10.0 mg/dL 08/01/23 14:48 ABX Reporting Has patient been on IV antibiotics over the past 48 hours?: Yes
[2023-08-05] MEDS: lisinopriL 5 MG TABLET PO SCH (11:09)
[2023-08-05 19:07] LABS: CALCIUM, IONIZED 1.04 mmol/L (1.15-1.33); VBG PH 7.431 (7.31-7.41)
[2023-08-05 19:16] LABS: MAGNESIUM 1.8 mg/dL (1.7-2.3); PHOSPHORUS 2.4 mg/dL (2.5-5.0); POTASSIUM 4.1 mmol/L (3.5-4.5)
[2023-08-06 05:27] LABS: MAGNESIUM 1.7 mg/dL (1.7-2.3); PHOSPHORUS 3.5 mg/dL (2.5-5.0)
[2023-08-06 05:41] LABS: CALCIUM, IONIZED 1.04 mmol/L (1.15-1.33); VBG PH 7.51 (7.31-7.41)
[2023-08-06] MEDS: MAGNESIUM OXIDE 400 MG TABLET PO ONE (06:10)
[2023-08-06] MEDS: CALCIUM CARBONATE CHEW 500 MG TABLET PO SCH (06:10)
[2023-08-06] MEDS: POTASSIUM CHLORIDE 20 MEQ TABLET PO ONE (07:35)
[2023-08-06] MEDS: METOPROLOL 5 MG/5 ML VIAL IVP STA (07:35)
[2023-08-06 08:19] LABS: CALCIUM 8.8 mg/dL (8.5-10.3); CREATININE 0.7 mg/dL (0.6-1.3); POTASSIUM 4.1 mmol/L (3.5-4.5)
[2023-08-06] MEDS: DIGOXIN 125 MCG TABLET PO SCH (08:35)
--- NOTE | 2023-08-06 13:34 | PROVIDER PROGRESS NOTE ---
Assessment/Plan - Problem List (1) Atrial fibrillation with RVR Assessment/Plan: - Continue medication for rate control * Metoprolol Tartrate for rate control. Adjust dose based on HR and BP per plan for systemic HF * Digoxin to be po, d/c IV - Continue Apixaban to reduce risk of stroke and possible systemic embolism - Continue lisinopril po to reduce afterload, improve cardiac output - LE edema improving, espeically above sock line, continue to monitor * Calf circumference above sock line: * Today: L = 32.5 cm, R = 28.5 cm * Yesterday: L = 31 cm, R = 28.5 cm (2) Respiratory failure Qualifiers: Chronicity: acute Respiratory failure complication: hypoxia Qualified Code(s): J96.01 - Acute respiratory failure with hypoxia Assessment/Plan: - Pt has been maintaining O2 target of 88% - 92% on 7L O2 - Pt reports not feeling anymore dizziness, reports less coughing - Continue Levalbuterol and Atrovent QID - Continue methylprednisone - Continue bumetanide inj on emilia - Continue to monitor urine output - Continue to check electrolytes and kidney function consider potassim and magnesium supplementation to correct metabolic alkalosis - LE B/L are much improved since admission * Continue to monitor * Calf circumference B/L above sock line: * Today = L= 32.5 cm, 28.5 cm * Yesterday : L= 31 cm, R = 28.5 cm (3) Acute on chronic systolic heart failure Assessment/Plan: - Snyder heart score model shows his mortality be 78% at 5 years. Approximately 23% at 1 year. - Goal is still rate control - Continue metoprolol tartrate inj * PRN if HR > 110 for > 3 min - Continue metoprolol tartrate po * Hold ofr SBP less than 100 * Hold for HR less than 60 (4) COPD (chronic obstructive pulmonary disease) Qualifiers: Emphysema type: unspecified Assessment/Plan: - Continue O2 support and treatment plan for respiratory failure - Pt will need O2 support at home - Consider adding RPN long-acting bronchodilator upon discharge (5) Candidal intertrigo Assessment/Plan: Continue nystatin powder BID, monitor for worsening symptoms (6) Delirium due to known physiological condition Assessment/Plan: - Pt continuing to be in and out of lucidity and confusion - Nurse reported he has some hallucinations x2days ago - UA x2days = negative - Likely multifactorial d/t hypoxia, hypercapnia, metabolic disturbances (7) Restlessness and agitation Assessment/Plan: -Intermittent episode of agitation and frustration with the nurses but still cooperative and understands he needs assistance. - Pt should continue taking walks around the unit with the nurses as much as he can tolerate - Pt has expressed frustration is d/t life stressors (8) Pneumonia, unspecified organism Qualifiers: Laterality: unspecified laterality Lung location: unspecified part of lung Qualified Code(s): J18.9 - Pneumonia, unspecified organism Assessment/Plan: Resolved, ceftriax and doxy administered 08/04/23 - Current Meds Current Meds: Current Medications Generic Name Dose Route Start Last Admin Trade Name Freq PRN Reason Stop Dose Admin Apixaban 5 mg 08/02/23 11:00 08/06/23 08:34 Apixaban 5 Mg Tablet PO 5 mg BID EMILIA Administration Bumetanide 1 mg 08/04/23 19:13 08/06/23 08:34 Bumetanide 1 Mg/4 Ml Vial IVP 1 mg DAILY EMILIA Administration Digoxin 250 mcg 08/06/23 09:00 08/06/23 08:35 Digoxin 125 Mcg Tablet PO 250 mcg DAILY EMILIA Administration Ceftriaxone Sodium 1 gm/ 100 mls @ 200 mls/hr 08/04/23 17:42 08/06/23 08:34 Sodium Chloride IV 200 mls/hr DAILY EMILIA Administration Doxycycline Hyclate 100 mg/ 100 mls @ 100 mls/hr 08/04/23 17:43 08/06/23 08:35 Sodium Chloride IV 100 mls/hr BID EMILIA Administration Ipratropium Rudy 0.5 mg 08/02/23 19:00 08/06/23 11:54 Ipratropium 0.2 Mg/Ml Neb INH 0.5 mg RTQID EMILIA Administration Levalbuterol HCl 1.25 mg 08/01/23 16:46 08/02/23 14:36 Levalbuterol 1.25 Mg/3 Ml Neb INH 1.25 mg Q4H PRN Administration Shortness of Air/Wheezing Levalbuterol HCl 1.25 mg 08/02/23 19:00 08/06/23 11:54 Levalbuterol 1.25 Mg/3 Ml Neb INH 1.25 mg RTQID EMILIA Administration Lisinopril 5 mg 08/05/23 11:00 08/06/23 08:36 Lisinopril 5 Mg Tablet PO 5 mg DAILY EMILIA Administration Methylprednisolone 40 mg 08/01/23 17:00 08/06/23 06:10 Methylprednisolone Succinate 40 Mg/Ml Vial IVP 40 mg TID EMILIA Administration Metoprolol Tartrate 5 mg 08/03/23 18:46 08/06/23 05:24 Metoprolol 5 Mg/5 Ml Vial IVP 5 mg Q6H PRN Administration heart rate > 110 for >3 minute Metoprolol Tartrate 100 mg 08/04/23 21:00 08/06/23 08:36 Metoprolol Tartrate 50 Mg Tablet PO 100 mg BID EMILIA Administration Nystatin 1 applic 08/02/23 11:00 08/06/23 08:38 Nystatin Powder 15 Gm TOP 1 applic BID EMILIA Administration Polyethylene Glycol 17 gm 08/03/23 09:00 08/06/23 08:38 Polyethylene Glycol 3350 17 Gm Packet PO 17 gm DAILY EMILIA Administration Sodium Chloride 10 ml 08/01/23 17:00 08/06/23 08:39 Sodium Chloride Flush 0.9% 10 Ml Syringe IVP 10 ml 0100,0900,1700 EMILIA Administration Sodium Chloride 10 ml 08/01/23 16:34 08/06/23 06:11 Sodium Chloride Flush 0.9% 10 Ml Syringe IVP 10 ml PRN PRN Administration NEEDED PER PROVIDER ORDERS - Lab Result Lab results reviewed: Yes Fish Bone Diagrams: 08/05/23 05:19 08/06/23 14:34 - Other Other Results/Comments: Pt's and hhzlej-ef-vwa visiting pt today, Dr. Arias spoke with them to answer questions, discuss pt's current condition, prognosis, post-discharge plans, necessity of having a concrete plan for care in place for pt's discharge, logistics of signing up for his VA benefits and plans for his who is unable to care for herself (pt is primary caregiver) and his daughter Kat and other family members possibly helping them with the process. So far pt has been slowly, but steadily improving with mild to moderate spikes and drops in labs and vitals with the exception of BNP increasing since admission: 597, 955, 842, 1006; CO2 increasing with highs of 42, 43; WBC slowly increasing, lymphocytes slowly decreasing. Also increasingly becoming intermittently confused and agitated, going in and out of lucidity but remains cooperative and as sharp-witted as he was at admission despite this decline. - Additional Planning Condition/Complexity: Guarded Plan Discussed with:: Spouse, Other ([id number] who lives next door to the pt and his ) Time Spent: 15-30 minutes (Dr. Arias spoke with pt's and [id number]) Subjective - Subjective Patient Reports: Feeling Better (Pt reports feeling better physically but expresses frustration about his situation and being in the hospital. He is enjoying the food and sleeping well each night. He has been awake and alert during the days with little to no napping.), Resting Comfortably, No Complaints Objective Vital Signs: Vital Signs - 24 hr 08/05/23 08/05/23 08/05/23 14:00 14:53 15:00 Temperature Heart Rate 94 Heart Rate [ 102 H 100 Monitoring electrodes] Respiratory 24 20 20 Rate Blood Pressure Blood Pressure 136/91 H 117/74 [Left Brachial artery] O2 Saturation 93 94 If not protocol 10 9 10 : Oxygen Flow, liters/minute 08/05/23 08/05/23 08/05/23 16:00 16:59 18:00 Temperature 36.6 C Heart Rate Heart Rate [ 110 H 122 H 105 H Monitoring electrodes] Respiratory 25 H 23 22 Rate Blood Pressure Blood Pressure 115/90 H 122/75 108/62 [Left Brachial artery] O2 Saturation 95 96 97 If not protocol 10 10 10 : Oxygen Flow, liters/minute 08/05/23 08/05/23 08/05/23 18:40 18:45 19:00 Temperature Heart Rate 130 H Heart Rate [ 108 H Monitoring electrodes] Respiratory 24 20 Rate Blood Pressure 114/78 Blood Pressure 117/80 [Left Brachial artery] O2 Saturation 95 If not protocol 10 10 : Oxygen Flow, liters/minute 08/05/23 08/05/23 08/05/23 19:10 20:00 21:00 Temperature 36.9 C Heart Rate Heart Rate [ 113 H 110 H Monitoring electrodes] Respiratory 23 22 Rate Blood Pressure 117/80 Blood Pressure 118/85 H 125/60 [Left Brachial artery] O2 Saturation 94 93 If not protocol 10 10 : Oxygen Flow, liters/minute 08/05/23 08/05/23 08/05/23 21:12 22:00 23:00 Temperature Heart Rate Heart Rate [ 114 H 101 H Monitoring electrodes] Respiratory 21 19 Rate Blood Pressure 125/60 Blood Pressure 117/80 110/75 [Left Brachial artery] O2 Saturation 95 95 If not protocol 10 10 : Oxygen Flow, liters/minute 08/06/23 08/06/23 08/06/23 00:00 01:00 02:00 Temperature 36.7 C Heart Rate Heart Rate [ 111 H 96 105 H Monitoring electrodes] Respiratory 26 H 20 19 Rate Blood Pressure Blood Pressure 129/87 H 118/67 120/91 H [Left Brachial artery] O2 Saturation 93 92 90 L If not protocol 10 10 10 : Oxygen Flow, liters/minute 08/06/23 08/06/23 08/06/23 03:00 04:00 05:10 Temperature Heart Rate Heart Rate [ 101 H 122 H 129 H Monitoring electrodes] Respiratory 20 27 H 19 Rate Blood Pressure Blood Pressure 132/73 H 127/101 H 127/93 H [Left Brachial artery] O2 Saturation 93 92 93 If not protocol 10 10 10 : Oxygen Flow, liters/minute 08/06/23 08/06/23 08/06/23 05:24 05:54 06:00 Temperature Heart Rate Heart Rate [ 122 H Monitoring electrodes] Respiratory 24 Rate Blood Pressure 127/93 H 134/97 H Blood Pressure 134/97 H [Left Brachial artery] O2 Saturation 94 If not protocol 10 : Oxygen Flow, liters/minute 08/06/23 08/06/23 08/06/23 07:00 07:12 07:15 Temperature Heart Rate 128 H Heart Rate [ 116 H Monitoring electrodes] Respiratory 22 16 Rate Blood Pressure Blood Pressure 124/98 H [Left Brachial artery] O2 Saturation 94 If not protocol 10 9 9 : Oxygen Flow, liters/minute 08/06/23 08/06/23 08/06/23 07:35 08:00 08:36 Temperature Heart Rate Heart Rate [ 112 H Monitoring electrodes] Respiratory 22 Rate Blood Pressure 117/85 H 105/71 Blood Pressure 135/103 H [Left Brachial artery] O2 Saturation 93 If not protocol 8 : Oxygen Flow, liters/minute 08/06/23 08/06/23 08/06/23 09:00 10:00 11:00 Temperature 36.8 C 36.7 C Heart Rate Heart Rate [ 100 106 H 99 Monitoring electrodes] Respiratory 18 20 19 Rate Blood Pressure Blood Pressure 113/73 113/65 125/84 H [Left Brachial artery] O2 Saturation 93 93 95 If not protocol 8 7 7 : Oxygen Flow, liters/minute 08/06/23 08/06/23 08/06/23 11:54 12:00 13:00 Temperature Heart Rate 108 H Heart Rate [ 111 H 101 H Monitoring electrodes] Respiratory 20 24 20 Rate Blood Pressure Blood Pressure 121/104 H 113/53 L [Left Brachial artery] O2 Saturation 92 93 If not protocol 7 7 7 : Oxygen Flow, liters/minute Oxygen O2 Source [With Activity] Oxymizer O2 Source Oxymizer I&O (Last 24 Hrs): Intake and Output Totals x24h 08/04/23 08/05/23 08/06/23 23:59 23:59 23:59 Intake Total 2230 1970 960 Output Total 3285 1652 2156 Balance -1055 -1102 -1196 General: Alert, Cooperative, Moderate distress HEENT: Atraumatic, PERRLA, EOMI, Mucous membr. moist/pink Neck: Supple, No thyromegaly, No LAD Neuro: Alert, Disoriented (Oriented to person, confused about place, time, timeline of events/situation. Intermittently logical but inaccurate thought process. Will sometimes ask irrelevant questions not related to the conversation.) Cardiovascular: Other (irregularly irregular) Respiratory: Chest non-tender Abdomen: Normal bowel sounds, Soft Extremities: Other (B/L LE edema is improving) - Results Results: Laboratory Results WBC 12.0 x10^3/uL (4.8-10.8) H 08/05/23 05:19 RBC 4.96 10^6/uL (4.70-6.10) 08/05/23 05:19 Hgb 15.2 g/dL (14.0-18.0) 08/05/23 05:19 Hct 48.0 % (42.0-52.0) 08/05/23 05:19 MCV 96.8 fL (80.0-94.0) H 08/05/23 05:19 MCH 30.6 pg (27.0-31.0) 08/05/23 05:19 MCHC 31.7 g/dL (32.0-36.0) L 08/05/23 05:19 RDW 15.5 % (12.0-15.0) H 08/05/23 05:19 Plt Count 263 10^3/uL (130-450) 08/05/23 05:19 MPV 9.7 fL (7.4-11.4) 08/05/23 05:19 Neut # (Auto) 11.0 10^3/uL (1.5-6.6) H 08/05/23 05:19 Lymph # (Auto) 0.4 10^3/uL (1.5-3.5) L 08/05/23 05:19 [place] # (Auto) 0.5 10^3/uL (0.0-1.0) 08/05/23 05:19 Eos # (Auto) 0.0 10^3/uL (0.0-0.7) 08/05/23 05:19 Baso # (Auto) 0.0 10^3/uL (0.0-0.1) 08/05/23 05:19 Absolute Nucleated RBC 0.00 x10^3/uL 08/05/23 05:19 Nucleated RBC % 0.0 /100WBC 08/05/23 05:19 PT 15.2 secs (9.9-12.6) H 08/01/23 14:48 INR 1.4 (0.8-1.2) H 08/01/23 14:48 Bld Gas Analysis Time 0458 08/04/23 04:50 Sample Site RIGHT BRACHIAL 08/04/23 04:50 ABG pH 7.52 (7.35-7.45) H 08/04/23 04:50 ABG pCO2 46 mmHg (34-45) H 08/04/23 04:50 ABG pO2 55 mmHg (80-100) L 08/04/23 04:50 ABG HCO3 36.2 mmol/L (22.0-26.0) H 08/04/23 04:50 ABG Total CO2 37.6 MMOL/L (21.0-29.0) H 08/04/23 04:50 ABG O2 Saturation 89 % (94-98) L 08/04/23 04:50 ABG Base Excess 11.7 mmol/L (-2.0-3.0) H 08/04/23 04:50 Harvinder Test NEGATIVE 08/04/23 04:50 VBG pH 7.510 (7.31-7.41) H 08/06/23 05:03 Ionized Calcium 1.04 mmol/L (1.15-1.33) L 08/06/23 05:03 O2 Delivery Device OXYMASK 08/04/23 04:50 O2 Liters/Min 12.00 LPM 08/04/23 04:50 FiO2 68.00 08/04/23 04:50 EPAP 4 cmH2O 08/01/23 15:52 IPAP 8 cmH2O 08/01/23 15:52 Sodium 138 mmol/L (135-145) 08/06/23 05:03 Potassium 3.9 mmol/L (3.5-4.5) 08/06/23 05:03 Potassium 4.1 mmol/L (3.5-4.5) 08/06/23 05:03 Chloride 95 mmol/L (101-111) L 08/06/23 05:03 Carbon Dioxide 37 mmol/L (21-32) H 08/06/23 05:03 Anion Gap 6.0 (6-13) 08/06/23 05:03 BUN 23 mg/dL (6-20) H 08/06/23 05:03 Creatinine 0.7 mg/dL (0.6-1.3) 08/06/23 05:03 Estimated GFR (MDRD) 111 (>89) 08/06/23 05:03 Glucose 124 mg/dL (74-104) H 08/06/23 05:03 Calcium 8.8 mg/dL (8.5-10.3) 08/06/23 05:03 Phosphorus 3.5 mg/dL (2.5-5.0) 08/06/23 05:03 Magnesium 1.7 mg/dL (1.7-2.3) 08/06/23 05:03 Total Bilirubin 0.8 mg/dL (0.2-1.0) 08/01/23 14:48 AST 25 IU/L (10-42) 08/01/23 14:48 ALT 36 IU/L (10-60) 08/01/23 14:48 Alkaline Phosphatase 74 IU/L (42-121) 08/01/23 14:48 Troponin I High Sens 2.8 ng/L (2.3-19.7) 08/02/23 08:56 B-Natriuretic Peptide 1660 pg/mL (5-100) H 08/05/23 05:19 Total Protein 7.2 g/dL (6.4-8.9) 08/01/23 14:48 Albumin 3.7 g/dL (3.2-5.5) 08/01/23 14:48 Globulin 3.5 g/dL (2.1-4.2) 08/01/23 14:48 Albumin/Globulin Ratio 1.1 (1.0-2.2) 08/01/23 14:48 Lipase 28 U/L (11-82) 08/01/23 14:48 TSH 0.92 uIU/mL (0.34-5.60) 08/02/23 08:56 Urine Color YELLOW 08/04/23 17:53 Urine Clarity CLEAR (CLEAR) 08/04/23 17:53 Urine pH 7.0 PH (5.0-7.5) 08/04/23 17:53 Ur Specific [place] 1.015 (1.002-1.030) 08/04/23 17:53 Urine Protein NEGATIVE mg/dL (NEGATIVE) 08/04/23 17:53 Urine Glucose (UA) NEGATIVE mg/dL (NEGATIVE) 08/04/23 17:53 Urine Ketones NEGATIVE mg/dL (NEGATIVE) 08/04/23 17:53 Urine Occult Blood TRACE-INTA (NEGATIVE) 08/04/23 17:53 Urine Nitrite NEGATIVE (NEGATIVE) 08/04/23 17:53 Urine Bilirubin NEGATIVE (NEGATIVE) 08/04/23 17:53 Urine Urobilinogen 0.2 (NORMAL) E.U./dL (NORMAL) 08/04/23 17:53 Ur Leukocyte Esterase NEGATIVE (NEGATIVE) 08/04/23 17:53 Ur Microscopic Review NOT INDICATED 08/04/23 17:53 Urine Culture Comments NOT INDICATED 08/04/23 17:53 Nasal Adenovirus (PCR) NOT DETECTED 08/01/23 15:58 Nasal B. parapertussis DNA (PCR) NOT DETECTED 08/01/23 15:58 Nasal Coronavir 229E PCR NOT DETECTED 08/01/23 15:58 Nasal Coronavir HKU1 PCR NOT DETECTED 08/01/23 15:58 Nasal Coronavir NL63 PCR NOT DETECTED 08/01/23 15:58 Nasal Coronavir OC43 PCR NOT DETECTED 08/01/23 15:58 Nasal Enterovir/Rhinovir PCR NOT DETECTED 08/01/23 15:58 Nasal Influenza B PCR NOT DETECTED 08/01/23 15:58 Nasal Influenza A PCR NOT DETECTED 08/01/23 15:58 Nasal Parainfluen 1 PCR NOT DETECTED 08/01/23 15:58 Nasal Parainfluen 2 PCR NOT DETECTED 08/01/23 15:58 Nasal Parainfluen 3 PCR NOT DETECTED 08/01/23 15:58 Nasal Parainfluen 4 PCR NOT DETECTED 08/01/23 15:58 Nasal RSV (PCR) NOT DETECTED 08/01/23 15:58 Nasal Screen MRSA (PCR) NEGATIVE (NEGATIVE) 08/01/23 15:45 Nasal B.pertussis DNA PCR NOT DETECTED 08/01/23 15:58 Nasal C.pneumoniae (PCR) NOT DETECTED 08/01/23 15:58 Sean Human Metapneumo PCR NOT DETECTED 08/01/23 15:58 Nasal M.pneumoniae (PCR) NOT DETECTED 08/01/23 15:58 Nasal SARS-CoV-2 (PCR) NOT DETECTED 08/01/23 15:58 Urine Opiates Screen NEGATIVE (NEGATIVE) 08/01/23 16:00 Ur Buprenorphine Scrn NEGATIVE (NEGATIVE) 08/01/23 16:00 Ur Oxycodone Screen NEGATIVE (NEGATIVE) 08/01/23 16:00 Urine Methadone Screen NEGATIVE (NEGATIVE) 08/01/23 16:00 Ur Barbiturates Screen NEGATIVE (NEGATIVE) 08/01/23 16:00 Ur Tricyclics Screen NEGATIVE (NEGATIVE) 08/01/23 16:00 Ur Phencyclidine Scrn NEGATIVE (NEGATIVE) 08/01/23 16:00 Ur Amphetamine Screen NEGATIVE (NEGATIVE) 08/01/23 16:00 U Methamphetamines Scrn NEGATIVE (NEGATIVE) 08/01/23 16:00 U Benzodiazepines Scrn NEGATIVE (NEGATIVE) 08/01/23 16:00 Urine Cocaine Screen NEGATIVE (NEGATIVE) 08/01/23 16:00 U Cannabinoids Screen NEGATIVE (NEGATIVE) 08/01/23 16:00 Ur Drug Screen Comment CUTOFF CONC BELOW: 08/01/23 16:00 Ethyl Alcohol < 10.0 mg/dL 08/01/23 14:48 ABX Reporting Has patient been on IV antibiotics over the past 48 hours?: Yes
[2023-08-06 14:45] LABS: CALCIUM, IONIZED 1.01 mmol/L (1.15-1.33); VBG PH 7.482 (7.31-7.41)
[2023-08-06 14:55] LABS: MAGNESIUM 1.6 mg/dL (1.7-2.3); PHOSPHORUS 2.9 mg/dL (2.5-5.0)
[2023-08-06] MEDS: CALCIUM GLUC 1,000MG/50ML-NACL 1,000 MG/50 ML BAG IV ONE ×2 (15:45→20:43)
[2023-08-06] MEDS: MAGNESIUM SULFATE 2 GRAM 2 GM/50 ML BAG IV ONE (15:46)
--- NOTE | 2023-08-06 19:26 | ADVANCE CARE PLANNING NOTE ---
Advance Care Planning - Planning Encounter Date: 08/06/23 Time: 13:00 Purpose: establish care goals with and [id number]-ux-fdl in the room Parties in Attendance: patient, hospitalist, [employer] [facility] PA student, sarah penaolza's , and 's sister Decisional Capacity of the Patient: oriented to person, place, time and situation but occasionally confused, angry at , and still occasionally hallucinating - Diagnosis for Encounter (2) Acute on chronic systolic heart failure Summary: new diagnosis of ejection fraction of 25% on echo. Patient presents with CHF that started a month ago. Prior to this states that his ankles were "bird thin". She noted the edema a month ago and it has been but getting progressively worse. This patient was discharged from a AAA stent repair a year ago on oxygen. He states when he got home the tanks were never full and he has not been using oxygen even though he is noted to be hypoxic. - Encounter Subjective/Patient's Story: The patient has been twice. With his first he had 1 daughter. Second has had 2 children. He was very, very close to his first daughter. She close to a year ago and he has not gotten over it. She is 51 years old and had type 1 diabetes mellitus since the age of 2. She of renal failure as a complication of diabetes. He is always been an inpatient person, and he and his tend to bigger. But over the last few months jjfigj-pb-rxn reports that the 2 of them have become "toxic". She cannot say anything without him jumping on her. He is very, very angry. When I ask him why he says that he is just angry about his daughter. He misses her horrifically. He needs to talk to her every day for hours at a time. And his is the person who is around 1 is the most unhappy so he takes it out on her. He agrees that something happened a month ago. Cannot quite figure out what. His thinks it was the new Zyrtec prescription. But he began becoming more more short of breath, more edematous. She states that he was quite skinny tall chinyere and now he is cold over on tonsils and his belly is even belcher as well as very swollen legs for the last month. Currently his azrjup-pf-mxq comes every day to help take care of his . The tklnhy-uj-sbg lives in a small house on the same property that the family owns. his disability is moderate. He is now able to ambulate in the hallways to about 150 to 200 feet. But he is occasionally confused. Hallucinating. Gets a little belligerent and slightly paranoid with the nurse. But very friendly to me and our student that is taking care of him. He reiterates that he wants to be DO NOT RESUSCITATE status. He does not want to be hospice. He does not want to go to a fpc. But he would like to go home. He is amenable to home health. currently sees [facility]. She has end-stage liver disease. Gpzpqg-ob-qzl is asking if she could be DURABLE POWER OF ELECTRICAL ESTIMATOR with his daughter Kat. I asked the patient and he says that he is fine with that. Kat is currently in [place]. Her nbcksi-mt-ayv is dying and she drove to [place] this week. She should be coming home today or tomorrow. So he says that Kat, his daughter, should be power of contracts attorney #1. And when Kat is not available his lpfhbw-on-aag to be power of contracts attorney #2. He is asking if he can do congestive heart failure classes. He also is giving us permission to discuss his case with his kzacwg-wg-jyn when she calls to get updated. Objective/Medical Story: He comes in with acute respiratory failure with hypoxia due to congestive heart failure. Echo confirms that and new ejection fraction is present at 25%. He has been started on diuretics. Bumex caused him to diurese 8 L in 1 day. Assess Bumex drip stopped and he is now on IV Bumex once a day. I have requested records from [facility] about his AAA repair and cardiac status. the surgeon was Darion Andres. I have requested twice and so far not been able to get any records. It is a holiday weekend. The AAA was done about a year ago. He continues to be tachycardic and I have increased his metoprolol today. He has a new onset atrial fibrillation and there is a possibility that chronic, uncontrolled A-fib may have been giving him his new congestive heart failure. Or considering he has considerable coronary artery disease/aortic disease, he may have had silent OK a month ago. Goals of Care: To return to home even though he is not able to completely take care of himself. And his will be unable to help him at all. Plan: 1. Discharged to [facility] with a bath aide, PT and OT 2. Meals on Wheels 3.. Palliative care consultation in the outpatient setting. When I discussed the mortality of his heart disease, he knows that his mortality is high in the next 5 years. He would like to be at home, still get procedures and go to the hospital, but when its time would like to transition to hospice with the help of palliative care. 4. DURABLE POWER OF ELECTRICAL ESTIMATOR paperwork obtained from social work. The patient will have to fill out the forms on his own. We cannot fill it out form. But have instructed him not to do any of the signing it. He signature will have to be notarized in the presence of the notary. 5. Follow-up with his primary care provider who will need to refer him for cardiology evaluation. I do not know how far he wants to go with the evaluation or if he would consider a stent. He is not sure. But he would also be candidate for an AICD. 6. Fill out POLST form before discharge. 7. I explained to his and inkqao-ol-eiy that they need to go home and discuss this with Kat. What is the long-term plans with caring for these elderly people who are disabled and will only get more disabled as time goes on. He is a . States that he is in the process of getting service- connected. If he is greater than 80% he may be able to get placement in a veterans home and he is willing to consider that. But he may have to do that at the NH center in [place]. Code Status: Do Not Attempt Resuscitation Time spent on advance care plannin minutes
[2023-08-06 19:57] LABS: CALCIUM, IONIZED 1.02 mmol/L (1.15-1.33); VBG PH 7.474 (7.31-7.41)
[2023-08-06 23:36] LABS: VBG PH 7.516 (7.31-7.41)
[2023-08-06 23:37] LABS: CALCIUM, IONIZED 1.05 mmol/L (1.15-1.33)
[2023-08-07] MEDS: CALCIUM CARBONATE CHEW 500 MG TABLET PO SCH (00:55)
[2023-08-07 04:43] LABS: BASOPHILS % (AUTO) 0.1 %; HCT - HEMATOCRIT 48.2 % (42.0-52.0); HGB - HEMOGLOBIN 14.9 g/dL (14.0-18.0); LYMPHOCYTES # (AUTO) 0.5 10^3/uL (1.5-3.5); LYMPHOCYTES % (AUTO) 3.7 %; MEAN CORPUSCULAR HEMOGLOBIN 29.4 pg (27.0-31.0); MEAN CORPUSCULAR HGB CONC 30.9 g/dL (32.0-36.0); MEAN CORPUSCULAR VOLUME 95.3 fL (80.0-94.0); MEAN PLATELET VOLUME 9.8 fL (7.4-11.4); MONOCYTES # (AUTO) 0.6 10^3/uL (0.0-1.0); MONOCYTES % (AUTO) 4.6 %; NEUTROPHILS # (AUTO) 11.7 10^3/uL (1.5-6.6); NEUTROPHILS % (AUTO) 91.1 %; PLT - PLATELET COUNT 217 10^3/uL (130-450); RED BLOOD COUNT 5.06 10^6/uL (4.70-6.10); RED CELL DISTRIBUTION WIDTH 15.3 % (12.0-15.0); WHITE BLOOD COUNT 12.8 x10^3/uL (4.8-10.8)
[2023-08-07 04:47] LABS: CALCIUM, IONIZED 1.08 mmol/L (1.15-1.33); VBG PH 7.476 (7.31-7.41)
[2023-08-07 04:57] LABS: MAGNESIUM 1.8 mg/dL (1.7-2.3); PHOSPHORUS 4.4 mg/dL (2.5-5.0)
[2023-08-07 05:01] LABS: CALCIUM 8.8 mg/dL (8.5-10.3); CREATININE 0.6 mg/dL (0.6-1.3); POTASSIUM 3.9 mmol/L (3.5-4.5)
[2023-08-07] MEDS: POTASSIUM CHLORIDE 20 MEQ TABLET PO ONE (06:11)
[2023-08-07] MEDS: PANTOPRAZOLE 40 MG TABLET PO SCH (06:11)
[2023-08-07] MEDS: MAGNESIUM OXIDE 400 MG TABLET PO ONE (06:11)
[2023-08-07] MEDS: BUMETANIDE 1 MG/4 ML VIAL IVP SCH (08:16)
--- NOTE | 2023-08-07 08:22 | XRAY Report ---
PROCEDURE: Chest 1V INDICATIONS: CHF, interval change. TECHNIQUE: One view of the chest was acquired. COMPARISON: 08/01/2023 FINDINGS: Surgical changes and devices: None. Lungs and pleura: Growing left pleural effusion, similar right pleural effusion. Decreased perihilar opacities. Similar peribronchial cuffing and interstitial thickening. Mediastinum: Mediastinal contours appear normal. Heart size is enlarged. Bones and chest wall: No suspicious bony lesions. Overlying soft tissues appear unremarkable. IMPRESSION: Growing left pleural effusion, and similar right pleural effusion. Decreased central congestion in the setting of moderate pulmonary edema. Reviewed by: Mat Munroe MD on 08/07/2023 8:20 AM PDT Approved by: Mat Munroe MD on 08/07/2023 8:20 AM PDT Station ID: [id number]
[2023-08-07 10:09] LABS: CALCIUM, IONIZED 1.12 mmol/L (1.15-1.33); VBG PH 7.413 (7.31-7.41)
[2023-08-07 10:16] LABS: MAGNESIUM 1.9 mg/dL (1.7-2.3); POTASSIUM 3.9 mmol/L (3.5-4.5)
--- NOTE | 2023-08-07 14:34 | PROVIDER PROGRESS NOTE ---
Assessment/Plan - Problem List (1) Acute on chronic systolic heart failure Assessment/Plan: (1) Atrial fibrillation with RVR Assessment/Plan: --Continue metoprolol and digoxin. --Continue Eliquis for stroke ppx. (2) Respiratory failure Qualifiers: Chronicity: acute Respiratory failure complication: hypoxia Qualified Code(s): J96.01 - Acute respiratory failure with hypoxia Assessment/Plan: --Remains on 6L via NC. Weaning as tolerated. --Secondary to pulmonary edema from HFrEF. --Repeat CXR today showing evidence of increasing pleural effusions. Will increase bumex to 2 mg daily. (3) Acute on chronic systolic heart failure Assessment/Plan: --TTE from 07/31 showing LVEF of 25-30%. --He would ultimately benefit from Metoprolol succinate instead of tartrate but will hold off for now as to not exacerbate his Afib. --Continue IV bumex. --Continue lisinopril. --Will add spironolactone if BP allows. (4) COPD (chronic obstructive pulmonary disease) Qualifiers: Emphysema type: unspecified Assessment/Plan: --Continue home inhalers. (5) Candidal intertrigo Assessment/Plan: Continue nystatin powder BID, monitor for worsening symptoms (6) Delirium due to known physiological condition Assessment/Plan: - Pt continuing to be in and out of lucidity and confusion - Nurse reported he has some hallucinations x2days ago - UA x2days = negative - Likely multifactorial d/t hypoxia, hypercapnia, metabolic disturbances (7) Restlessness and agitation Assessment/Plan: -Intermittent episode of agitation and frustration with the nurses but still cooperative and understands he needs assistance. - Pt should continue taking walks around the unit with the nurses as much as he can tolerate - Pt has expressed frustration is d/t life stressors (8) Pneumonia, unspecified organism Qualifiers: Laterality: unspecified laterality Lung location: unspecified part of lung Qualified Code(s): J18.9 - Pneumonia, unspecified organism Assessment/Plan: Resolved, ceftriax and doxy administered 08/04/23 - Current Meds Current Meds: Current Medications Generic Name Dose Route Start Last Admin Trade Name Freq PRN Reason Stop Dose Admin Apixaban 5 mg 08/02/23 11:00 08/07/23 08:02 Apixaban 5 Mg Tablet PO 5 mg BID FREDRICK Administration Bumetanide 2 mg 08/07/23 09:00 08/07/23 08:16 Bumetanide 1 Mg/4 Ml Vial IVP 2 mg DAILY FREDRICK Administration Digoxin 250 mcg 08/06/23 09:00 08/07/23 08:16 Digoxin 125 Mcg Tablet PO 250 mcg DAILY FREDRICK Administration Ceftriaxone Sodium 1 gm/ 100 mls @ 200 mls/hr 08/04/23 17:42 08/07/23 10:42 Sodium Chloride IV Infused DAILY FREDRICK Infusion Doxycycline Hyclate 100 mg/ 100 mls @ 100 mls/hr 08/04/23 17:43 08/07/23 10:42 Sodium Chloride IV Infused BID FREDRICK Infusion Ipratropium [place] 0.5 mg 08/02/23 19:00 08/07/23 07:17 Ipratropium 0.2 Mg/Ml Neb INH 0.5 mg RTQID FREDRICK Administration Levalbuterol HCl 1.25 mg 08/01/23 16:46 08/02/23 14:36 Levalbuterol 1.25 Mg/3 Ml Neb INH 1.25 mg Q4H PRN Administration Shortness of Air/Wheezing Levalbuterol HCl 1.25 mg 08/02/23 19:00 08/07/23 07:17 Levalbuterol 1.25 Mg/3 Ml Neb INH 1.25 mg RTQID FREDRICK Administration Lisinopril 5 mg 08/05/23 11:00 08/07/23 08:02 Lisinopril 5 Mg Tablet PO 5 mg DAILY FREDRICK Administration Methylprednisolone 40 mg 08/01/23 17:00 08/07/23 13:38 Methylprednisolone Succinate 40 Mg/Ml Vial IVP 40 mg TID FREDRICK Administration Metoprolol Tartrate 5 mg 08/03/23 18:46 08/07/23 10:45 Metoprolol 5 Mg/5 Ml Vial IVP 5 mg Q6H PRN Administration heart rate > 110 for >3 minute Metoprolol Tartrate 100 mg 08/04/23 21:00 08/07/23 08:02 Metoprolol Tartrate 50 Mg Tablet PO 100 mg BID FREDRICK Administration Nystatin 1 applic 08/02/23 11:00 08/07/23 08:16 Nystatin Powder 15 Gm TOP 1 applic BID FREDRICK Administration Pantoprazole Sodium 40 mg 08/07/23 07:00 08/07/23 06:11 Pantoprazole 40 Mg Tablet PO 40 mg QDAC FREDRICK Administration Polyethylene Glycol 17 gm 08/03/23 09:00 08/07/23 07:37 Polyethylene Glycol 3350 17 Gm Packet PO Not Given DAILY FREDRICK Sodium Chloride 10 ml 08/01/23 17:00 08/07/23 13:39 Sodium Chloride Flush 0.9% 10 Ml Syringe IVP 10 ml 0100,0900,1700 FREDRICK Administration Sodium Chloride 10 ml 08/01/23 16:34 08/07/23 05:38 Sodium Chloride Flush 0.9% 10 Ml Syringe IVP 10 ml PRN PRN Administration NEEDED PER PROVIDER ORDERS - Lab Result Fish Bone Diagrams: 08/07/23 04:34 08/07/23 09:57 - Additional Planning My Orders: My Active Orders 08/07/23 09:00 Bumetanide Inj [Bumex Inj] 2 mg IVP DAILY 08/07/23 Lunch Low Sodium Diet [DIET] 08/08/23 05:00 BMP - BASIC METABOLIC PANEL [CHEM] DAILYLAB CBC [CBC - COMP BLD CT W/AUTO DIFF] [HEME] DAILYLAB 08/08/23 09:00 BNP - B-NATRIURETIC PEPTIDE [CHEM] DAILY 08/09/23 05:00 BMP - BASIC METABOLIC PANEL [CHEM] DAILYLAB CBC [CBC - COMP BLD CT W/AUTO DIFF] [HEME] DAILYLAB 08/09/23 09:00 BNP - B-NATRIURETIC PEPTIDE [CHEM] DAILY 08/10/23 05:00 BMP - BASIC METABOLIC PANEL [CHEM] DAILYLAB CBC [CBC - COMP BLD CT W/AUTO DIFF] [HEME] DAILYLAB 08/10/23 09:00 BNP - B-NATRIURETIC PEPTIDE [CHEM] DAILY 08/11/23 05:00 BMP - BASIC METABOLIC PANEL [CHEM] DAILYLAB CBC [CBC - COMP BLD CT W/AUTO DIFF] [HEME] DAILYLAB 08/11/23 09:00 BNP - B-NATRIURETIC PEPTIDE [CHEM] DAILY Subjective - Subjective Patient Reports: Feeling Better, Shortness of Breath (Remains on 6L via NC.), Other Objective Vital Signs: Vital Signs - 24 hr 08/06/23 08/06/23 08/06/23 14:00 15:00 16:00 Temperature 36.6 C Heart Rate Heart Rate [ 103 H 102 H 109 H Monitoring electrodes] Respiratory 22 23 21 Rate Blood Pressure Blood Pressure 120/74 114/73 119/66 [Left Brachial artery] O2 Saturation 91 L 90 L 94 If not protocol 7 7 5 : Oxygen Flow, liters/minute 08/06/23 08/06/23 08/06/23 16:09 17:00 18:00 Temperature Heart Rate 100 Heart Rate [ 116 H 107 H Monitoring electrodes] Respiratory 20 22 20 Rate Blood Pressure Blood Pressure 103/65 112/84 H [Left Brachial artery] O2 Saturation 99 91 L If not protocol 5 5 6 : Oxygen Flow, liters/minute 08/06/23 08/06/23 08/06/23 18:45 19:00 20:00 Temperature 36.4 C L Heart Rate 98 Heart Rate [ 109 H 124 H Monitoring electrodes] Respiratory 22 16 18 Rate Blood Pressure Blood Pressure 106/72 95/74 [Left Brachial artery] O2 Saturation 95 92 If not protocol 4 6 6 : Oxygen Flow, liters/minute 08/06/23 08/06/23 08/06/23 20:30 21:00 22:00 Temperature Heart Rate Heart Rate [ 107 H 113 H Monitoring electrodes] Respiratory 15 21 Rate Blood Pressure 115/73 Blood Pressure 130/76 115/97 H [Left Brachial artery] O2 Saturation 90 L 93 If not protocol 6 6 : Oxygen Flow, liters/minute 08/06/23 08/07/23 08/07/23 23:00 00:00 01:00 Temperature Heart Rate Heart Rate [ 96 109 H 101 H Monitoring electrodes] Respiratory 22 21 23 Rate Blood Pressure Blood Pressure 129/89 H 117/83 H 118/89 H [Left Brachial artery] O2 Saturation 91 L 89 L 91 L If not protocol 6 6 6 : Oxygen Flow, liters/minute 08/07/23 08/07/23 08/07/23 02:00 03:00 03:55 Temperature 36.7 C Heart Rate Heart Rate [ 100 108 H Monitoring electrodes] Respiratory 15 25 H Rate Blood Pressure 107/74 Blood Pressure 111/88 H 107/74 [Left Brachial artery] O2 Saturation 90 L 91 L If not protocol 6 6 : Oxygen Flow, liters/minute 08/07/23 08/07/23 08/07/23 04:00 05:00 06:00 Temperature 36.7 C Heart Rate Heart Rate [ 105 H 113 H 107 H Monitoring electrodes] Respiratory 22 22 19 Rate Blood Pressure 123/99 H Blood Pressure 121/95 H 123/99 H 141/78 H [Left Brachial artery] O2 Saturation 88 L 88 L 92 If not protocol 6 6 6 : Oxygen Flow, liters/minute 08/07/23 08/07/23 08/07/23 07:00 07:20 08:00 Temperature Heart Rate 11 L Heart Rate [ 110 H 113 H Monitoring electrodes] Respiratory 19 27 H 22 Rate Blood Pressure Blood Pressure 129/92 H 144/94 H [Left Brachial artery] O2 Saturation 90 L 89 L If not protocol 6 6 6 : Oxygen Flow, liters/minute 08/07/23 08/07/23 08/07/23 08:02 09:00 10:00 Temperature Heart Rate Heart Rate [ 118 H 109 H Monitoring electrodes] Respiratory 20 24 Rate Blood Pressure 144/94 H Blood Pressure 145/91 H 132/98 H [Left Brachial artery] O2 Saturation 90 L 96 If not protocol 5 5 : Oxygen Flow, liters/minute 08/07/23 08/07/23 08/07/23 10:45 11:00 12:00 Temperature Heart Rate Heart Rate [ 113 H 116 H Monitoring electrodes] Respiratory 23 22 Rate Blood Pressure 144/106 H Blood Pressure 136/100 H 126/87 H [Left Brachial artery] O2 Saturation 88 L 91 L If not protocol 5 5 : Oxygen Flow, liters/minute 08/07/23 08/07/23 13:00 13:37 Temperature Heart Rate Heart Rate [ 106 H Monitoring electrodes] Respiratory 19 Rate Blood Pressure 101/61 Blood Pressure 101/61 [Left Brachial artery] O2 Saturation 92 If not protocol 5 : Oxygen Flow, liters/minute Oxygen O2 Source [With Activity] Oxymizer O2 Source Nasal cannula I&O (Last 24 Hrs): Intake and Output Totals x24h 08/05/23 08/06/23 08/07/23 23:59 23:59 23:59 Intake Total 1970 2210 540 Output Total 0437 9301 7535 [id number] [id number] [id number] General: Alert Cardiovascular: Regular rate, Normal S1, Normal S2 Respiratory: Chest non-tender, No respiratory distress, Breath sounds nml - Results Results: Laboratory Results WBC 12.8 x10^3/uL (4.8-10.8) H 08/07/23 04:34 RBC 5.06 10^6/uL (4.70-6.10) 08/07/23 04:34 Hgb 14.9 g/dL (14.0-18.0) 08/07/23 04:34 Hct 48.2 % (42.0-52.0) 08/07/23 04:34 MCV 95.3 fL (80.0-94.0) H 08/07/23 04:34 MCH 29.4 pg (27.0-31.0) 08/07/23 04:34 MCHC 30.9 g/dL (32.0-36.0) L 08/07/23 04:34 RDW 15.3 % (12.0-15.0) H 08/07/23 04:34 Plt Count 217 10^3/uL (130-450) 08/07/23 04:34 MPV 9.8 fL (7.4-11.4) 08/07/23 04:34 Neut # (Auto) 11.7 10^3/uL (1.5-6.6) H 08/07/23 04:34 Lymph # (Auto) 0.5 10^3/uL (1.5-3.5) L 08/07/23 04:34 [place] # (Auto) 0.6 10^3/uL (0.0-1.0) 08/07/23 04:34 Eos # (Auto) 0.0 10^3/uL (0.0-0.7) 08/07/23 04:34 Baso # (Auto) 0.0 10^3/uL (0.0-0.1) 08/07/23 04:34 Absolute Nucleated RBC 0.00 x10^3/uL 08/07/23 04:34 Nucleated RBC % 0.0 /100WBC 08/07/23 04:34 PT 15.2 secs (9.9-12.6) H 08/01/23 14:48 INR 1.4 (0.8-1.2) H 08/01/23 14:48 Bld Gas Analysis Time 0458 08/04/23 04:50 Sample Site RIGHT BRACHIAL 08/04/23 04:50 ABG pH 7.52 (7.35-7.45) H 08/04/23 04:50 ABG pCO2 46 mmHg (34-45) H 08/04/23 04:50 ABG pO2 55 mmHg (80-100) L 08/04/23 04:50 ABG HCO3 36.2 mmol/L (22.0-26.0) H 08/04/23 04:50 ABG Total CO2 37.6 MMOL/L (21.0-29.0) H 08/04/23 04:50 ABG O2 Saturation 89 % (94-98) L 08/04/23 04:50 ABG Base Excess 11.7 mmol/L (-2.0-3.0) H 08/04/23 04:50 Harvinder Test NEGATIVE 08/04/23 04:50 VBG pH 7.413 (7.31-7.41) H 08/07/23 09:57 Ionized Calcium 1.12 mmol/L (1.15-1.33) L 08/07/23 09:57 O2 Delivery Device OXYMASK 08/04/23 04:50 O2 Liters/Min 12.00 LPM 08/04/23 04:50 FiO2 68.00 08/04/23 04:50 EPAP 4 cmH2O 08/01/23 15:52 IPAP 8 cmH2O 08/01/23 15:52 Sodium 141 mmol/L (135-145) 08/07/23 04:34 Potassium 3.9 mmol/L (3.5-4.5) 08/07/23 09:57 Chloride 96 mmol/L (101-111) L 08/07/23 04:34 Carbon Dioxide 41 mmol/L (21-32) H* 08/07/23 04:34 Anion Gap 4.0 (6-13) L 08/07/23 04:34 BUN 24 mg/dL (6-20) H 08/07/23 04:34 Creatinine 0.6 mg/dL (0.6-1.3) 08/07/23 04:34 Estimated GFR (MDRD) 132 (>89) 08/07/23 04:34 Glucose 136 mg/dL (74-104) H 08/07/23 04:34 Calcium 8.8 mg/dL (8.5-10.3) 08/07/23 04:34 Phosphorus 4.4 mg/dL (2.5-5.0) 08/07/23 04:34 Magnesium 1.9 mg/dL (1.7-2.3) 08/07/23 09:57 Total Bilirubin 0.8 mg/dL (0.2-1.0) 08/01/23 14:48 AST 25 IU/L (10-42) 08/01/23 14:48 ALT 36 IU/L (10-60) 08/01/23 14:48 Alkaline Phosphatase 74 IU/L (42-121) 08/01/23 14:48 Troponin I High Sens 2.8 ng/L (2.3-19.7) 08/02/23 08:56 B-Natriuretic Peptide 1050 pg/mL (5-100) H 08/07/23 04:34 Total Protein 7.2 g/dL (6.4-8.9) 08/01/23 14:48 Albumin 3.7 g/dL (3.2-5.5) 08/01/23 14:48 Globulin 3.5 g/dL (2.1-4.2) 08/01/23 14:48 Albumin/Globulin Ratio 1.1 (1.0-2.2) 08/01/23 14:48 Lipase 28 U/L (11-82) 08/01/23 14:48 TSH 0.92 uIU/mL (0.34-5.60) 08/02/23 08:56 Urine Color YELLOW 08/04/23 17:53 Urine Clarity CLEAR (CLEAR) 08/04/23 17:53 Urine pH 7.0 PH (5.0-7.5) 08/04/23 17:53 Ur Specific [place] 1.015 (1.002-1.030) 08/04/23 17:53 Urine Protein NEGATIVE mg/dL (NEGATIVE) 08/04/23 17:53 Urine Glucose (UA) NEGATIVE mg/dL (NEGATIVE) 08/04/23 17:53 Urine Ketones NEGATIVE mg/dL (NEGATIVE) 08/04/23 17:53 Urine Occult Blood TRACE-INTA (NEGATIVE) 08/04/23 17:53 Urine Nitrite NEGATIVE (NEGATIVE) 08/04/23 17:53 Urine Bilirubin NEGATIVE (NEGATIVE) 08/04/23 17:53 Urine Urobilinogen 0.2 (NORMAL) E.U./dL (NORMAL) 08/04/23 17:53 Ur Leukocyte Esterase NEGATIVE (NEGATIVE) 08/04/23 17:53 Ur Microscopic Review NOT INDICATED 08/04/23 17:53 Urine Culture Comments NOT INDICATED 08/04/23 17:53 Nasal Adenovirus (PCR) NOT DETECTED 08/01/23 15:58 Nasal B. parapertussis DNA (PCR) NOT DETECTED 08/01/23 15:58 Nasal Coronavir 229E PCR NOT DETECTED 08/01/23 15:58 Nasal Coronavir HKU1 PCR NOT DETECTED 08/01/23 15:58 Nasal Coronavir NL63 PCR NOT DETECTED 08/01/23 15:58 Nasal Coronavir OC43 PCR NOT DETECTED 08/01/23 15:58 Nasal Enterovir/Rhinovir PCR NOT DETECTED 08/01/23 15:58 Nasal Influenza B PCR NOT DETECTED 08/01/23 15:58 Nasal Influenza A PCR NOT DETECTED 08/01/23 15:58 Nasal Parainfluen 1 PCR NOT DETECTED 08/01/23 15:58 Nasal Parainfluen 2 PCR NOT DETECTED 08/01/23 15:58 Nasal Parainfluen 3 PCR NOT DETECTED 08/01/23 15:58 Nasal Parainfluen 4 PCR NOT DETECTED 08/01/23 15:58 Nasal RSV (PCR) NOT DETECTED 08/01/23 15:58 Nasal Screen MRSA (PCR) NEGATIVE (NEGATIVE) 08/01/23 15:45 Nasal B.pertussis DNA PCR NOT DETECTED 08/01/23 15:58 Nasal C.pneumoniae (PCR) NOT DETECTED 08/01/23 15:58 Sean Human Metapneumo PCR NOT DETECTED 08/01/23 15:58 Nasal M.pneumoniae (PCR) NOT DETECTED 08/01/23 15:58 Nasal SARS-CoV-2 (PCR) NOT DETECTED 08/01/23 15:58 Urine Opiates Screen NEGATIVE (NEGATIVE) 08/01/23 16:00 Ur Buprenorphine Scrn NEGATIVE (NEGATIVE) 08/01/23 16:00 Ur Oxycodone Screen NEGATIVE (NEGATIVE) 08/01/23 16:00 Urine Methadone Screen NEGATIVE (NEGATIVE) 08/01/23 16:00 Ur Barbiturates Screen NEGATIVE (NEGATIVE) 08/01/23 16:00 Ur Tricyclics Screen NEGATIVE (NEGATIVE) 08/01/23 16:00 Ur Phencyclidine Scrn NEGATIVE (NEGATIVE) 08/01/23 16:00 Ur Amphetamine Screen NEGATIVE (NEGATIVE) 08/01/23 16:00 U Methamphetamines Scrn NEGATIVE (NEGATIVE) 08/01/23 16:00 U Benzodiazepines Scrn NEGATIVE (NEGATIVE) 08/01/23 16:00 Urine Cocaine Screen NEGATIVE (NEGATIVE) 08/01/23 16:00 U Cannabinoids Screen NEGATIVE (NEGATIVE) 08/01/23 16:00 Ur Drug Screen Comment CUTOFF CONC BELOW: 08/01/23 16:00 Ethyl Alcohol < 10.0 mg/dL 08/01/23 14:48
[2023-08-07] MEDS: HALOPERIDOL 5 MG/ML VIAL IM ONE (15:39)
[2023-08-07] MEDS: oxyCODONE 5 MG TABLET PO PRN (20:02)
[2023-08-08 04:42] LABS: BASOPHILS % (AUTO) 0.1 %; CALCIUM, IONIZED 1.02 mmol/L (1.15-1.33); HGB - HEMOGLOBIN 15.2 g/dL (14.0-18.0); LYMPHOCYTES # (AUTO) 0.6 10^3/uL (1.5-3.5); MEAN CORPUSCULAR HEMOGLOBIN 30.3 pg (27.0-31.0); MEAN CORPUSCULAR HGB CONC 31.7 g/dL (32.0-36.0); MEAN CORPUSCULAR VOLUME 95.6 fL (80.0-94.0); MEAN PLATELET VOLUME 10.4 fL (7.4-11.4); MONOCYTES # (AUTO) 0.7 10^3/uL (0.0-1.0); MONOCYTES % (AUTO) 4.7 %; NEUTROPHILS # (AUTO) 13.4 10^3/uL (1.5-6.6); NEUTROPHILS % (AUTO) 90.9 %; PLT - PLATELET COUNT 198 10^3/uL (130-450); RED BLOOD COUNT 5.02 10^6/uL (4.70-6.10); RED CELL DISTRIBUTION WIDTH 15.7 % (12.0-15.0); VBG PH 7.488 (7.31-7.41); WHITE BLOOD COUNT 14.8 x10^3/uL (4.8-10.8)
[2023-08-08 04:59] LABS: MAGNESIUM 1.9 mg/dL (1.7-2.3); PHOSPHORUS 4.4 mg/dL (2.5-5.0)
[2023-08-08 05:04] LABS: CALCIUM 8.7 mg/dL (8.5-10.3); CREATININE 0.7 mg/dL (0.6-1.3); POTASSIUM 3.9 mmol/L (3.5-4.5)
[2023-08-08] MEDS: CALCIUM CARBONATE CHEW 500 MG TABLET PO SCH ×2 (06:03→14:10)
[2023-08-08] MEDS: POTASSIUM CHLORIDE 20 MEQ TABLET PO ONE ×2 (06:03→14:10)
[2023-08-08] MEDS: METOPROLOL SUCCINATE 50 MG TABLET PO SCH (08:37)
[2023-08-08] MEDS: acetaZOLAMIDE 250 MG TABLET PO SCH (08:37)
[2023-08-08] MEDS: SPIRONOLACTONE 25 MG TABLET PO SCH (08:38)
[2023-08-08] MEDS: ASPIRIN EC 81 MG TABLET PO SCH (09:32)
--- NOTE | 2023-08-08 11:43 | PROVIDER PROGRESS NOTE ---
Assessment/Plan - Problem List (1) Acute on chronic systolic heart failure Assessment/Plan: (1) Atrial fibrillation with RVR Assessment/Plan: --Continue metoprolol and digoxin. Have switched him to metoprolol succinate 200 mg daily. --Continue Eliquis for stroke ppx. (2) Respiratory failure Qualifiers: Chronicity: acute Respiratory failure complication: hypoxia Qualified Code(s): J96.01 - Acute respiratory failure with hypoxia Assessment/Plan: --Remains on 6L via NC. Weaning as tolerated. --Secondary to pulmonary edema from HFrEF. --Currently on Bumex 2 mg daily. --Bilateral pleural effusions on CXR 08/06 likely secondary to CHF. (3) Acute on chronic systolic heart failure Assessment/Plan: --TTE from 07/31 showing LVEF of 25-30%. --On metoprolol succinate 200 mg daily --Continue IV bumex 2 mg daily. --Continue lisinopril. --Spironolactone added. Unfortunately Entresto and SGLT-2 not available in for [facility]. --Have reached out to [facility] in [place] for Cardiology assistance and possible transfer. Awaiting call back. (4) COPD (chronic obstructive pulmonary disease) Qualifiers: Emphysema type: unspecified Assessment/Plan: --Continue home inhalers. (5) Candidal intertrigo Assessment/Plan: Continue nystatin powder BID, monitor for worsening symptoms (6) Delirium due to known physiological condition Assessment/Plan: --Workup has been negative for any specific cause. Likely due to prolonged ICU stay. (7) Restlessness and agitation Assessment/Plan: -Intermittent episode of agitation and frustration with the nurses but still cooperative and understands he needs assistance. - Pt should continue taking walks around the unit with the nurses as much as he can tolerate - Pt has expressed frustration is d/t life stressors (8) Pneumonia, unspecified organism Qualifiers: Laterality: unspecified laterality Lung location: unspecified part of lung Qualified Code(s): J18.9 - Pneumonia, unspecified organism Assessment/Plan: Resolved, ceftriax and doxy administered 08/04/23 - Current Meds Current Meds: Current Medications Generic Name Dose Route Start Last Admin Trade Name Freq PRN Reason Stop Dose Admin Acetazolamide 500 mg 08/08/23 09:00 08/08/23 08:37 Acetazolamide 250 Mg Tablet PO 500 mg DAILY FREDRICK Administration Apixaban 5 mg 08/02/23 11:00 08/08/23 08:38 Apixaban 5 Mg Tablet PO 5 mg BID FREDRICK Administration Aspirin 81 mg 08/08/23 09:00 08/08/23 09:32 Aspirin Ec 81 Mg Tablet PO 81 mg DAILY FREDRICK Administration Bumetanide 2 mg 08/07/23 09:00 08/08/23 08:38 Bumetanide 1 Mg/4 Ml Vial IVP 2 mg DAILY FREDRICK Administration Digoxin 250 mcg 08/06/23 09:00 08/08/23 08:38 Digoxin 125 Mcg Tablet PO 250 mcg DAILY FREDRICK Administration Ceftriaxone Sodium 1 gm/ 100 mls @ 200 mls/hr 08/04/23 17:42 08/08/23 10:11 Sodium Chloride IV 200 mls/hr DAILY FREDRICK Administration Doxycycline Hyclate 100 mg/ 100 mls @ 100 mls/hr 08/04/23 17:43 08/08/23 09:45 Sodium Chloride IV Infused BID FREDRICK Infusion Ipratropium Decker 0.5 mg 08/02/23 19:00 08/08/23 11:25 Ipratropium 0.2 Mg/Ml Neb INH 0.5 mg RTQID FREDRICK Administration Levalbuterol HCl 1.25 mg 08/01/23 16:46 08/02/23 14:36 Levalbuterol 1.25 Mg/3 Ml Neb INH 1.25 mg Q4H PRN Administration Shortness of Air/Wheezing Levalbuterol HCl 1.25 mg 08/02/23 19:00 08/08/23 11:25 Levalbuterol 1.25 Mg/3 Ml Neb INH 1.25 mg RTQID FREDRICK Administration Lisinopril 5 mg 08/05/23 11:00 08/08/23 08:38 Lisinopril 5 Mg Tablet PO 5 mg DAILY FREDRICK Administration Methylprednisolone 40 mg 08/01/23 17:00 08/08/23 06:02 Methylprednisolone Succinate 40 Mg/Ml Vial IVP 40 mg TID FREDRICK Administration Metoprolol Succinate 200 mg 08/08/23 09:00 08/08/23 08:37 Metoprolol Succinate 50 Mg Tablet PO 200 mg DAILY FREDRICK Administration Metoprolol Tartrate 5 mg 08/03/23 18:46 08/07/23 17:20 Metoprolol 5 Mg/5 Ml Vial IVP 5 mg Q6H PRN Administration heart rate > 110 for >3 minute Nystatin 1 applic 08/02/23 11:00 08/08/23 08:38 Nystatin Powder 15 Gm TOP 1 applic BID FREDRICK Administration Oxycodone HCl 5 mg 08/01/23 16:34 08/08/23 06:02 Oxycodone 5 Mg Tablet PO 5 mg Q4HR PRN Administration Pain 5 to 7 Pantoprazole Sodium 40 mg 08/07/23 07:00 08/08/23 06:03 Pantoprazole 40 Mg Tablet PO 40 mg QDAC FREDRICK Administration Polyethylene Glycol 17 gm 08/03/23 09:00 08/08/23 08:16 Polyethylene Glycol 3350 17 Gm Packet PO Not Given DAILY FREDRICK Sodium Chloride 10 ml 08/01/23 17:00 08/08/23 08:38 Sodium Chloride Flush 0.9% 10 Ml Syringe IVP 10 ml 0100,0900,1700 FREDRICK Administration Sodium Chloride 10 ml 08/01/23 16:34 08/08/23 06:05 Sodium Chloride Flush 0.9% 10 Ml Syringe IVP 10 ml PRN PRN Administration NEEDED PER PROVIDER ORDERS Spironolactone 25 mg 08/08/23 09:00 08/08/23 08:38 Spironolactone 25 Mg Tablet PO 25 mg DAILY FREDRICK Administration - Lab Result Fish Bone Diagrams: 08/08/23 04:22 08/08/23 04:22 - Additional Planning My Orders: My Active Orders 08/07/23 Lunch Low Sodium Diet [DIET] 08/08/23 09:00 Aspirin EC [Ecotrin] 81 mg PO DAILY Metoprolol Succinate [Toprol Xl] 200 mg PO DAILY Spironolactone [Aldactone] 25 mg PO DAILY acetaZOLAMIDE [Diamox] 500 mg PO DAILY 08/08/23 13:30 CALCIUM, IONIZED ([facility]) [BG] Timed POTASSIUM [CHEM] Timed 08/08/23 21:00 Atorvastatin [Lipitor] 10 mg PO HS 08/09/23 05:00 BMP - BASIC METABOLIC PANEL [CHEM] DAILYLAB CBC [CBC - COMP BLD CT W/AUTO DIFF] [HEME] DAILYLAB 08/09/23 09:00 BNP - B-NATRIURETIC PEPTIDE [CHEM] DAILY 08/10/23 05:00 BMP - BASIC METABOLIC PANEL [CHEM] DAILYLAB CBC [CBC - COMP BLD CT W/AUTO DIFF] [HEME] DAILYLAB 08/10/23 09:00 BNP - B-NATRIURETIC PEPTIDE [CHEM] DAILY 08/11/23 05:00 BMP - BASIC METABOLIC PANEL [CHEM] DAILYLAB CBC [CBC - COMP BLD CT W/AUTO DIFF] [HEME] DAILYLAB 08/11/23 09:00 BNP - B-NATRIURETIC PEPTIDE [CHEM] DAILY Subjective - Subjective Patient Reports: Feeling Better, Resting Comfortably, No Complaints Objective Vital Signs: Vital Signs - 24 hr 08/07/23 08/07/23 08/07/23 12:00 13:00 13:37 Temperature Heart Rate Heart Rate [ 116 H 106 H Monitoring electrodes] Respiratory 22 19 Rate Blood Pressure 101/61 Blood Pressure 126/87 H 101/61 [Left Brachial artery] O2 Saturation 91 L 92 If not protocol 5 5 : Oxygen Flow, liters/minute 08/07/23 08/07/23 08/07/23 14:00 15:00 16:00 Temperature Heart Rate Heart Rate [ 114 H 114 H 116 H Monitoring electrodes] Respiratory 25 H 27 H 26 H Rate Blood Pressure Blood Pressure 151/88 H 140/106 H 141/93 H [Left Brachial artery] O2 Saturation 91 L 89 L 89 L If not protocol 5 5 5 : Oxygen Flow, liters/minute 08/07/23 08/07/23 08/07/23 16:08 17:00 17:20 Temperature Heart Rate 116 H Heart Rate [ 124 H Monitoring electrodes] Respiratory 19 31 H Rate Blood Pressure 137/77 H Blood Pressure 166/100 H [Left Brachial artery] O2 Saturation 84 L If not protocol 6 6 : Oxygen Flow, liters/minute 08/07/23 08/07/23 08/07/23 18:00 19:00 19:30 Temperature Heart Rate 103 H Heart Rate [ 112 H 110 H Monitoring electrodes] Respiratory 20 32 H 20 Rate Blood Pressure 121/90 H Blood Pressure 121/90 H 141/87 H [Left Brachial artery] O2 Saturation 90 L 96 If not protocol 6 5 5 : Oxygen Flow, liters/minute 08/07/23 08/07/23 08/07/23 20:00 20:03 21:00 Temperature 36.7 C Heart Rate Heart Rate [ 107 H 102 H Monitoring electrodes] Respiratory 29 H 18 Rate Blood Pressure 118/56 L Blood Pressure 118/56 L 123/76 [Left Brachial artery] O2 Saturation 90 L 88 L If not protocol 6 6 : Oxygen Flow, liters/minute 08/07/23 08/07/23 08/08/23 22:00 23:00 00:00 Temperature 36.7 C Heart Rate Heart Rate [ 102 H 97 97 Monitoring electrodes] Respiratory 26 H 18 20 Rate Blood Pressure Blood Pressure 130/95 H 123/80 156/87 H [Left Brachial artery] O2 Saturation 88 L 89 L 89 L If not protocol 6 6 6 : Oxygen Flow, liters/minute 08/08/23 08/08/23 08/08/23 01:00 02:00 03:00 Temperature 36.6 C Heart Rate Heart Rate [ 111 H 114 H 97 Monitoring electrodes] Respiratory 24 24 21 Rate Blood Pressure Blood Pressure 132/92 H 132/86 H 136/96 H [Left Brachial artery] O2 Saturation 88 L 90 L 88 L If not protocol 6 6 6 : Oxygen Flow, liters/minute 08/08/23 08/08/23 08/08/23 04:00 05:00 06:00 Temperature Heart Rate 124 H Heart Rate [ 98 106 H 106 H Monitoring electrodes] Respiratory 21 22 19 Rate Blood Pressure Blood Pressure 137/97 H 136/77 H 134/100 H [Left Brachial artery] O2 Saturation 90 L 90 L 92 If not protocol 6 6 6 : Oxygen Flow, liters/minute 08/08/23 08/08/23 08/08/23 07:00 08:00 09:00 Temperature 36.4 C L Heart Rate Heart Rate [ 90 127 H 115 H Monitoring electrodes] Respiratory 17 16 17 Rate Blood Pressure Blood Pressure 135/92 H 138/96 H 104/73 [Left Brachial artery] O2 Saturation 89 L 89 L 94 If not protocol 6 6 6 : Oxygen Flow, liters/minute 08/08/23 08/08/23 08/08/23 10:00 11:00 11:27 Temperature Heart Rate 106 H Heart Rate [ 103 H 113 H Monitoring electrodes] Respiratory 22 18 16 Rate Blood Pressure Blood Pressure 119/72 108/64 [Left Brachial artery] O2 Saturation 97 92 If not protocol 6 6 5 : Oxygen Flow, liters/minute Oxygen O2 Source [With Activity] Oxymizer O2 Source Oxymask I&O (Last 24 Hrs): Intake and Output Totals x24h 08/06/23 08/07/23 08/08/23 23:59 23:59 23:59 Intake Total 2210 980 340 Output Total 3251 3800 1395 Balance -1041 -2820 -1055 General: Alert, Oriented x3 Cardiovascular: Regular rate Respiratory: No respiratory distress, Breath sounds nml Abdomen: Normal bowel sounds, Soft, No tenderness - Results Results: Laboratory Results WBC 14.8 x10^3/uL (4.8-10.8) H 08/08/23 04:22 RBC 5.02 10^6/uL (4.70-6.10) 08/08/23 04:22 Hgb 15.2 g/dL (14.0-18.0) 08/08/23 04:22 Hct 48.0 % (42.0-52.0) 08/08/23 04:22 MCV 95.6 fL (80.0-94.0) H 08/08/23 04:22 MCH 30.3 pg (27.0-31.0) 08/08/23 04:22 MCHC 31.7 g/dL (32.0-36.0) L 08/08/23 04:22 RDW 15.7 % (12.0-15.0) H 08/08/23 04:22 Plt Count 198 10^3/uL (130-450) 08/08/23 04:22 MPV 10.4 fL (7.4-11.4) 08/08/23 04:22 Neut # (Auto) 13.4 10^3/uL (1.5-6.6) H 08/08/23 04:22 Lymph # (Auto) 0.6 10^3/uL (1.5-3.5) L 08/08/23 04:22 [place] # (Auto) 0.7 10^3/uL (0.0-1.0) 08/08/23 04:22 Eos # (Auto) 0.0 10^3/uL (0.0-0.7) 08/08/23 04:22 Baso # (Auto) 0.0 10^3/uL (0.0-0.1) 08/08/23 04:22 Absolute Nucleated RBC 0.00 x10^3/uL 08/08/23 04:22 Nucleated RBC % 0.0 /100WBC 08/08/23 04:22 PT 15.2 secs (9.9-12.6) H 08/01/23 14:48 INR 1.4 (0.8-1.2) H 08/01/23 14:48 Bld Gas Analysis Time 0458 08/04/23 04:50 Sample Site RIGHT BRACHIAL 08/04/23 04:50 ABG pH 7.52 (7.35-7.45) H 08/04/23 04:50 ABG pCO2 46 mmHg (34-45) H 08/04/23 04:50 ABG pO2 55 mmHg (80-100) L 08/04/23 04:50 ABG HCO3 36.2 mmol/L (22.0-26.0) H 08/04/23 04:50 ABG Total CO2 37.6 MMOL/L (21.0-29.0) H 08/04/23 04:50 ABG O2 Saturation 89 % (94-98) L 08/04/23 04:50 ABG Base Excess 11.7 mmol/L (-2.0-3.0) H 08/04/23 04:50 Harvinder Test NEGATIVE 08/04/23 04:50 VBG pH 7.488 (7.31-7.41) H 08/08/23 04:22 Ionized Calcium 1.02 mmol/L (1.15-1.33) L 08/08/23 04:22 O2 Delivery Device OXYMASK 08/04/23 04:50 O2 Liters/Min 12.00 LPM 08/04/23 04:50 FiO2 68.00 08/04/23 04:50 EPAP 4 cmH2O 08/01/23 15:52 IPAP 8 cmH2O 08/01/23 15:52 Sodium 141 mmol/L (135-145) 08/08/23 04:22 Potassium 3.9 mmol/L (3.5-4.5) 08/08/23 04:22 Chloride 97 mmol/L (101-111) L 08/08/23 04:22 Carbon Dioxide 41 mmol/L (21-32) H* 08/08/23 04:22 Anion Gap 3.0 (6-13) L 08/08/23 04:22 BUN 28 mg/dL (6-20) H 08/08/23 04:22 Creatinine 0.7 mg/dL (0.6-1.3) 08/08/23 04:22 Estimated GFR (MDRD) 111 (>89) 08/08/23 04:22 Glucose 130 mg/dL (74-104) H 08/08/23 04:22 Calcium 8.7 mg/dL (8.5-10.3) 08/08/23 04:22 Phosphorus 4.4 mg/dL (2.5-5.0) 08/08/23 04:22 Magnesium 1.9 mg/dL (1.7-2.3) 08/08/23 04:22 Total Bilirubin 0.8 mg/dL (0.2-1.0) 08/01/23 14:48 AST 25 IU/L (10-42) 08/01/23 14:48 ALT 36 IU/L (10-60) 08/01/23 14:48 Alkaline Phosphatase 74 IU/L (42-121) 08/01/23 14:48 Troponin I High Sens 2.8 ng/L (2.3-19.7) 08/02/23 08:56 B-Natriuretic Peptide 1151 pg/mL (5-100) H 08/08/23 04:22 Total Protein 7.2 g/dL (6.4-8.9) 08/01/23 14:48 Albumin 3.7 g/dL (3.2-5.5) 08/01/23 14:48 Globulin 3.5 g/dL (2.1-4.2) 08/01/23 14:48 Albumin/Globulin Ratio 1.1 (1.0-2.2) 08/01/23 14:48 Lipase 28 U/L (11-82) 08/01/23 14:48 TSH 0.92 uIU/mL (0.34-5.60) 08/02/23 08:56 Urine Color YELLOW 08/04/23 17:53 Urine Clarity CLEAR (CLEAR) 08/04/23 17:53 Urine pH 7.0 PH (5.0-7.5) 08/04/23 17:53 Ur Specific [place] 1.015 (1.002-1.030) 08/04/23 17:53 Urine Protein NEGATIVE mg/dL (NEGATIVE) 08/04/23 17:53 Urine Glucose (UA) NEGATIVE mg/dL (NEGATIVE) 08/04/23 17:53 Urine Ketones NEGATIVE mg/dL (NEGATIVE) 08/04/23 17:53 Urine Occult Blood TRACE-INTA (NEGATIVE) 08/04/23 17:53 Urine Nitrite NEGATIVE (NEGATIVE) 08/04/23 17:53 Urine Bilirubin NEGATIVE (NEGATIVE) 08/04/23 17:53 Urine Urobilinogen 0.2 (NORMAL) E.U./dL (NORMAL) 08/04/23 17:53 Ur Leukocyte Esterase NEGATIVE (NEGATIVE) 08/04/23 17:53 Ur Microscopic Review NOT INDICATED 08/04/23 17:53 Urine Culture Comments NOT INDICATED 08/04/23 17:53 Nasal Adenovirus (PCR) NOT DETECTED 08/01/23 15:58 Nasal B. parapertussis DNA (PCR) NOT DETECTED 08/01/23 15:58 Nasal Coronavir 229E PCR NOT DETECTED 08/01/23 15:58 Nasal Coronavir HKU1 PCR NOT DETECTED 08/01/23 15:58 Nasal Coronavir NL63 PCR NOT DETECTED 08/01/23 15:58 Nasal Coronavir OC43 PCR NOT DETECTED 08/01/23 15:58 Nasal Enterovir/Rhinovir PCR NOT DETECTED 08/01/23 15:58 Nasal Influenza B PCR NOT DETECTED 08/01/23 15:58 Nasal Influenza A PCR NOT DETECTED 08/01/23 15:58 Nasal Parainfluen 1 PCR NOT DETECTED 08/01/23 15:58 Nasal Parainfluen 2 PCR NOT DETECTED 08/01/23 15:58 Nasal Parainfluen 3 PCR NOT DETECTED 08/01/23 15:58 Nasal Parainfluen 4 PCR NOT DETECTED 08/01/23 15:58 Nasal RSV (PCR) NOT DETECTED 08/01/23 15:58 Nasal Screen MRSA (PCR) NEGATIVE (NEGATIVE) 08/01/23 15:45 Nasal B.pertussis DNA PCR NOT DETECTED 08/01/23 15:58 Nasal C.pneumoniae (PCR) NOT DETECTED 08/01/23 15:58 Sean Human Metapneumo PCR NOT DETECTED 08/01/23 15:58 Nasal M.pneumoniae (PCR) NOT DETECTED 08/01/23 15:58 Nasal SARS-CoV-2 (PCR) NOT DETECTED 08/01/23 15:58 Urine Opiates Screen NEGATIVE (NEGATIVE) 08/01/23 16:00 Ur Buprenorphine Scrn NEGATIVE (NEGATIVE) 08/01/23 16:00 Ur Oxycodone Screen NEGATIVE (NEGATIVE) 08/01/23 16:00 Urine Methadone Screen NEGATIVE (NEGATIVE) 08/01/23 16:00 Ur Barbiturates Screen NEGATIVE (NEGATIVE) 08/01/23 16:00 Ur Tricyclics Screen NEGATIVE (NEGATIVE) 08/01/23 16:00 Ur Phencyclidine Scrn NEGATIVE (NEGATIVE) 08/01/23 16:00 Ur Amphetamine Screen NEGATIVE (NEGATIVE) 08/01/23 16:00 U Methamphetamines Scrn NEGATIVE (NEGATIVE) 08/01/23 16:00 U Benzodiazepines Scrn NEGATIVE (NEGATIVE) 08/01/23 16:00 Urine Cocaine Screen NEGATIVE (NEGATIVE) 08/01/23 16:00 U Cannabinoids Screen NEGATIVE (NEGATIVE) 08/01/23 16:00 Ur Drug Screen Comment CUTOFF CONC BELOW: 08/01/23 16:00 Ethyl Alcohol < 10.0 mg/dL 08/01/23 14:48
[2023-08-08 13:34] LABS: CALCIUM, IONIZED 1.08 mmol/L (1.15-1.33); VBG PH 7.451 (7.31-7.41)
[2023-08-08] MEDS: HALOPERIDOL 5 MG/ML VIAL IM ONE (19:19)
[2023-08-08] MEDS: ATORVASTATIN 10 MG TABLET PO SCH (21:41)
[2023-08-08 22:24] LABS: CALCIUM, IONIZED 1.06 mmol/L (1.15-1.33); VBG PH 7.493 (7.31-7.41)
[2023-08-09 04:53] LABS: BASOPHILS % (AUTO) 0.1 %; HCT - HEMATOCRIT 49.6 % (42.0-52.0); HGB - HEMOGLOBIN 15.3 g/dL (14.0-18.0); LYMPHOCYTES # (AUTO) 0.6 10^3/uL (1.5-3.5); LYMPHOCYTES % (AUTO) 4.1 %; MEAN CORPUSCULAR HEMOGLOBIN 29.5 pg (27.0-31.0); MEAN CORPUSCULAR HGB CONC 30.8 g/dL (32.0-36.0); MEAN CORPUSCULAR VOLUME 95.6 fL (80.0-94.0); MEAN PLATELET VOLUME 10.5 fL (7.4-11.4); MONOCYTES # (AUTO) 0.7 10^3/uL (0.0-1.0); MONOCYTES % (AUTO) 4.9 %; NEUTROPHILS % (AUTO) 90.3 %; PLT - PLATELET COUNT 199 10^3/uL (130-450); RED BLOOD COUNT 5.19 10^6/uL (4.70-6.10); RED CELL DISTRIBUTION WIDTH 15.8 % (12.0-15.0); WHITE BLOOD COUNT 14.4 x10^3/uL (4.8-10.8)
[2023-08-09 05:14] LABS: CALCIUM, IONIZED 1.06 mmol/L (1.15-1.33); VBG PH 7.464 (7.31-7.41)
[2023-08-09 05:16] LABS: MAGNESIUM 1.9 mg/dL (1.7-2.3); PHOSPHORUS 4.9 mg/dL (2.5-5.0)
[2023-08-09 05:51] LABS: CALCIUM 8.7 mg/dL (8.5-10.3); CREATININE 0.8 mg/dL (0.6-1.3); POTASSIUM 3.8 mmol/L (3.5-4.5)
[2023-08-09] MEDS: CALCIUM CARBONATE CHEW 500 MG TABLET PO SCH (08:40)
[2023-08-09] MEDS: POTASSIUM CHLORIDE 20 MEQ TABLET PO ONE (08:40)
[2023-08-09] MEDS: BUMETANIDE 1 MG/4 ML VIAL IVP SCH (08:42)
--- NOTE | 2023-08-09 10:47 | PROVIDER PROGRESS NOTE ---
Assessment/Plan - Problem List (1) Acute on chronic systolic heart failure Assessment/Plan: (1) Atrial fibrillation with RVR Assessment/Plan: --Continue metoprolol and digoxin. Have switched him to metoprolol succinate 200 mg daily. Rate is well controlled. --Continue Eliquis for stroke ppx. (2) Respiratory failure Qualifiers: Chronicity: acute Respiratory failure complication: hypoxia Qualified Code(s): J96.01 - Acute respiratory failure with hypoxia Assessment/Plan: --Remains on 4.5 L via NC. --Secondary to pulmonary edema from HFrEF. --Increased bumex to 2 mg BID IV. --Bilateral pleural effusions on CXR 08/06 likely secondary to CHF. Repeat CXR this AM. (3) Acute on chronic systolic heart failure Assessment/Plan: --TTE from 07/31 showing LVEF of 25-30%. --On metoprolol succinate 200 mg daily --Continue IV bumex 2 mg BID --Continue lisinopril. --Spironolactone added. Unfortunately Entresto and SGLT-2 not available in formulary. --Have reached out to [facility] in [place] for Cardiology assistance and possible transfer. Awaiting call back. (4) COPD (chronic obstructive pulmonary disease) Qualifiers: Emphysema type: unspecified Assessment/Plan: --Continue home inhalers. (5) Candidal intertrigo Assessment/Plan: Continue nystatin powder BID, monitor for worsening symptoms (6) Delirium due to known physiological condition Assessment/Plan: --Workup has been negative for any specific cause. Likely due to prolonged ICU stay. (7) Restlessness and agitation Assessment/Plan: -Intermittent episode of agitation and frustration with the nurses but still cooperative and understands he needs assistance. - Pt should continue taking walks around the unit with the nurses as much as he can tolerate - Pt has expressed frustration is d/t life stressors (8) Pneumonia, unspecified organism Qualifiers: Laterality: unspecified laterality Lung location: unspecified part of lung Qualified Code(s): J18.9 - Pneumonia, unspecified organism Assessment/Plan: Resolved, ceftriax and doxy administered 08/04/23 Dispo: Remains in ICU, repeat CXR performed this AM. Appears his left pleural effusion has improved. - Current Meds Current Meds: Current Medications Generic Name Dose Route Start Last Admin Trade Name Mickeyq PRN Reason Stop Dose Admin Apixaban 5 mg 08/02/23 11:00 08/09/23 10:04 Apixaban 5 Mg Tablet PO 5 mg BID FREDRICK Administration Aspirin 81 mg 08/08/23 09:00 08/09/23 10:02 Aspirin Ec 81 Mg Tablet PO 81 mg DAILY FREDRICK Administration Atorvastatin Calcium 10 mg 08/08/23 21:00 08/08/23 21:41 Atorvastatin 10 Mg Tablet PO 10 mg HS FREDRICK Administration Bumetanide 2 mg 08/09/23 09:00 08/09/23 08:42 Bumetanide 1 Mg/4 Ml Vial IVP 2 mg BID FREDRICK Administration Calcium Carbonate/Glycine 1,250 mg 08/09/23 07:00 08/09/23 10:04 Calcium Carbonate Chew 500 Mg Tablet PO 08/09/23 11:01 1,250 mg Q4H FREDRICK Administration Protocol Digoxin 250 mcg 08/06/23 09:00 08/09/23 09:58 Digoxin 125 Mcg Tablet PO 250 mcg DAILY FREDRICK Administration Ceftriaxone Sodium 1 gm/ 100 mls @ 200 mls/hr 08/04/23 17:42 08/09/23 09:15 Sodium Chloride IV Infused DAILY FREDRICK Infusion Doxycycline Hyclate 100 mg/ 100 mls @ 100 mls/hr 08/04/23 17:43 08/09/23 09:31 Sodium Chloride IV 100 mls/hr BID FREDRICK Administration Ipratropium [place] 0.5 mg 08/02/23 19:00 08/09/23 09:48 Ipratropium 0.2 Mg/Ml Neb INH 0.5 mg RTQID FREDRICK Administration Levalbuterol HCl 1.25 mg 08/01/23 16:46 08/02/23 14:36 Levalbuterol 1.25 Mg/3 Ml Neb INH 1.25 mg Q4H PRN Administration Shortness of Air/Wheezing Levalbuterol HCl 1.25 mg 08/02/23 19:00 08/09/23 09:48 Levalbuterol 1.25 Mg/3 Ml Neb INH 1.25 mg RTQID FREDRICK Administration Lisinopril 5 mg 08/05/23 11:00 08/09/23 10:02 Lisinopril 5 Mg Tablet PO 5 mg DAILY FREDRICK Administration Methylprednisolone 40 mg 08/01/23 17:00 08/09/23 06:14 Methylprednisolone Succinate 40 Mg/Ml Vial IVP 40 mg TID FREDRICK Administration Metoprolol Succinate 200 mg 08/08/23 09:00 08/09/23 09:59 Metoprolol Succinate 50 Mg Tablet PO 200 mg DAILY FREDRICK Administration Metoprolol Tartrate 5 mg 08/03/23 18:46 08/07/23 17:20 Metoprolol 5 Mg/5 Ml Vial IVP 5 mg Q6H PRN Administration heart rate > 110 for >3 minute Nystatin 1 applic 08/02/23 11:00 08/09/23 10:16 Nystatin Powder 15 Gm TOP 1 applic BID FREDRICK Administration Oxycodone HCl 5 mg 08/01/23 16:34 08/08/23 06:02 Oxycodone 5 Mg Tablet PO 5 mg Q4HR PRN Administration Pain 5 to 7 Pantoprazole Sodium 40 mg 08/07/23 07:00 08/09/23 09:56 Pantoprazole 40 Mg Tablet PO 40 mg QDAC FREDRICK Administration Polyethylene Glycol 17 gm 08/03/23 09:00 08/09/23 10:07 Polyethylene Glycol 3350 17 Gm Packet PO Not Given DAILY FREDRICK Sodium Chloride 10 ml 08/01/23 17:00 08/09/23 04:47 Sodium Chloride Flush 0.9% 10 Ml Syringe IVP 10 ml 0100,0900,1700 FREDRICK Administration Sodium Chloride 10 ml 08/01/23 16:34 08/08/23 06:05 Sodium Chloride Flush 0.9% 10 Ml Syringe IVP 10 ml PRN PRN Administration NEEDED PER PROVIDER ORDERS Spironolactone 25 mg 08/08/23 09:00 08/09/23 10:02 Spironolactone 25 Mg Tablet PO 25 mg DAILY FREDRICK Administration - Lab Result Fish Bone Diagrams: 08/09/23 04:29 08/09/23 04:29 - Additional Planning My Orders: My Active Orders 08/08/23 21:00 Atorvastatin [Lipitor] 10 mg PO HS 08/09/23 09:00 Bumetanide Inj [Bumex Inj] 2 mg IVP BID 08/09/23 10:17 Haloperidol Inj [Haldol Inj] 1 mg IM Q6H PRN 08/10/23 05:00 BMP - BASIC METABOLIC PANEL [CHEM] DAILYLAB CBC [CBC - COMP BLD CT W/AUTO DIFF] [HEME] DAILYLAB 08/10/23 09:00 BNP - B-NATRIURETIC PEPTIDE [CHEM] DAILY 08/11/23 05:00 BMP - BASIC METABOLIC PANEL [CHEM] DAILYLAB CBC [CBC - COMP BLD CT W/AUTO DIFF] [HEME] DAILYLAB 08/11/23 09:00 BNP - B-NATRIURETIC PEPTIDE [CHEM] DAILY Subjective - Subjective Patient Reports: No Complaints (Somnolent. Did not sleep well overnight. His LE edema has improved significantly. Repeat CXR today. We are weaning his oxyg en.) Objective Vital Signs: Vital Signs - 24 hr 08/08/23 08/08/23 08/08/23 11:00 11:27 12:00 Temperature 36.7 C Heart Rate 106 H Heart Rate [ 113 H 110 H Monitoring electrodes] Respiratory 18 16 17 Rate Blood Pressure 108/64 118/84 H [Left Brachial artery] O2 Saturation 92 99 If not protocol 6 5 6 : Oxygen Flow, liters/minute 08/08/23 08/08/23 08/08/23 13:00 14:00 15:00 Temperature Heart Rate Heart Rate [ 105 H 103 H 97 Monitoring electrodes] Respiratory 19 21 18 Rate Blood Pressure 108/23 L 108/72 97/69 [Left Brachial artery] O2 Saturation 88 L 92 97 If not protocol 6 4.5 4.5 : Oxygen Flow, liters/minute 08/08/23 08/08/23 08/08/23 15:29 16:00 17:00 Temperature 36.6 C Heart Rate 95 Heart Rate [ 96 109 H Monitoring electrodes] Respiratory 18 19 17 Rate Blood Pressure 101/70 116/99 H [Left Brachial artery] O2 Saturation 93 94 If not protocol 4 4.5 4.5 : Oxygen Flow, liters/minute 08/08/23 08/08/23 08/08/23 18:00 19:00 19:20 Temperature Heart Rate Heart Rate [ 100 102 H Monitoring electrodes] Respiratory 21 21 Rate Blood Pressure 116/84 H 126/98 H [Left Brachial artery] O2 Saturation 95 95 If not protocol 4.5 4.5 4 : Oxygen Flow, liters/minute 08/08/23 08/08/23 08/08/23 19:26 20:00 21:00 Temperature 37.0 C Heart Rate 114 H Heart Rate [ 115 H 114 H Monitoring electrodes] Respiratory 24 19 27 H Rate Blood Pressure 120/68 131/96 H [Left Brachial artery] O2 Saturation 91 L 88 L If not protocol 4 4.5 4 : Oxygen Flow, liters/minute 08/08/23 08/08/23 08/09/23 22:00 23:00 00:00 Temperature Heart Rate Heart Rate [ 112 H 100 106 H Monitoring electrodes] Respiratory 23 18 22 Rate Blood Pressure 105/63 100/75 108/65 [Left Brachial artery] O2 Saturation 91 L 93 92 If not protocol 4.5 4.5 4.5 : Oxygen Flow, liters/minute 08/09/23 08/09/23 08/09/23 01:00 02:00 03:00 Temperature 37.0 C Heart Rate Heart Rate [ 104 H 101 H 102 H Monitoring electrodes] Respiratory 17 79 H 22 Rate Blood Pressure 117/76 127/71 124/95 H [Left Brachial artery] O2 Saturation 96 91 L 93 If not protocol 4.5 4.5 4.5 : Oxygen Flow, liters/minute 08/09/23 08/09/23 08/09/23 04:00 05:00 06:00 Temperature Heart Rate Heart Rate [ 99 101 H 102 H Monitoring electrodes] Respiratory 21 21 28 H Rate Blood Pressure 115/96 H 136/105 H 125/98 H [Left Brachial artery] O2 Saturation 92 92 92 If not protocol 4.5 4.5 4.5 : Oxygen Flow, liters/minute 08/09/23 08/09/23 08/09/23 07:00 08:00 09:00 Temperature 36.8 C Heart Rate Heart Rate [ 109 H 91 102 H Monitoring electrodes] Respiratory 24 23 22 Rate Blood Pressure 135/94 H 128/86 H 152/105 H [Left Brachial artery] O2 Saturation 93 91 L 92 If not protocol 4.5 4 4 : Oxygen Flow, liters/minute 08/09/23 08/09/23 09:50 10:00 Temperature Heart Rate 111 H Heart Rate [ 122 H Monitoring electrodes] Respiratory 25 H 21 Rate Blood Pressure 137/85 H [Left Brachial artery] O2 Saturation 95 If not protocol 4 3 : Oxygen Flow, liters/minute Oxygen O2 Source [With Activity] Oxymizer O2 Source Nasal cannula I&O (Last 24 Hrs): Intake and Output Totals x24h 08/07/23 08/08/23 08/09/23 23:59 23:59 23:59 Intake Total 980 1440 390 Output Total [address] [place] [phone] Cardiovascular: Regular rate, Normal S1, Normal S2 Respiratory: No respiratory distress, Breath sounds nml Abdomen: Normal bowel sounds, Soft - Results Results: Laboratory Results WBC 14.4 x10^3/uL (4.8-10.8) H 08/09/23 04: RBC 5.19 10^6/uL (4.70-6.10) 08/09/23 04:29 Hgb 15.3 g/dL (14.0-18.0) 08/09/23 04: Hct 49.6 % (42.0-52.0) 08/09/23 04: MCV 95.6 fL (80.0-94.0) H 08/09/23 04:29 MCH 29.5 pg (27.0-31.0) 08/09/23 04: MCHC 30.8 g/dL (32.0-36.0) L 08/09/23 04:29 RDW 15.8 % (12.0-15.0) H 08/09/23 04:29 Plt Count 199 10^3/uL (130-450) 08/09/23 04:29 MPV 10.5 fL (7.4-11.4) 08/09/23 04:29 Neut # (Auto) 13.0 10^3/uL (1.5-6.6) H 08/09/23 04:29 Lymph # (Auto) 0.6 10^3/uL (1.5-3.5) L 08/09/23 04:29 [place] # (Auto) 0.7 10^3/uL (0.0-1.0) 08/09/23 04:29 Eos # (Auto) 0.0 10^3/uL (0.0-0.7) 08/09/23 04:29 Baso # (Auto) 0.0 10^3/uL (0.0-0.1) 08/09/23 04:29 Absolute Nucleated RBC 0.00 x10^3/uL 08/09/23 04:29 Nucleated RBC % 0.0 /100WBC 08/09/23 04:29 PT 15.2 secs (9.9-12.6) H 08/01/23 14:48 INR 1.4 (0.8-1.2) H 08/01/23 14:48 Bld Gas Analysis Time 0458 08/04/23 04:50 Sample Site RIGHT BRACHIAL 08/04/23 04:50 ABG pH 7.52 (7.35-7.45) H 08/04/23 04:50 ABG pCO2 46 mmHg (34-45) H 08/04/23 04:50 ABG pO2 55 mmHg (80-100) L 08/04/23 04:50 ABG HCO3 36.2 mmol/L (22.0-26.0) H 08/04/23 04:50 ABG Total CO2 37.6 MMOL/L (21.0-29.0) H 08/04/23 04:50 ABG O2 Saturation 89 % (94-98) L 08/04/23 04:50 ABG Base Excess 11.7 mmol/L (-2.0-3.0) H 08/04/23 04:50 Harvinder Test NEGATIVE 08/04/23 04:50 VBG pH 7.464 (7.31-7.41) H 08/09/23 04:29 Ionized Calcium 1.06 mmol/L (1.15-1.33) L 08/09/23 04:29 O2 Delivery Device OXYMASK 08/04/23 04:50 O2 Liters/Min 12.00 LPM 08/04/23 04:50 FiO2 68.00 08/04/23 04:50 EPAP 4 cmH2O 08/01/23 15:52 IPAP 8 cmH2O 08/01/23 15:52 Sodium 139 mmol/L (135-145) 08/09/23 04:29 Potassium 3.8 mmol/L (3.5-4.5) 08/09/23 04:29 Chloride 99 mmol/L (101-111) L 08/09/23 04:29 Carbon Dioxide 33 mmol/L (21-32) H 08/09/23 04:29 Anion Gap 7.0 (6-13) 08/09/23 04:29 BUN 34 mg/dL (6-20) H 08/09/23 04:29 Creatinine 0.8 mg/dL (0.6-1.3) 08/09/23 04:29 Estimated GFR (MDRD) 95 (>89) 08/09/23 04:29 Glucose 121 mg/dL (74-104) H 08/09/23 04:29 Calcium 8.7 mg/dL (8.5-10.3) 08/09/23 04:29 Phosphorus 4.9 mg/dL (2.5-5.0) 08/09/23 04:29 Magnesium 1.9 mg/dL (1.7-2.3) 08/09/23 04:29 Total Bilirubin 0.8 mg/dL (0.2-1.0) 08/01/23 14:48 AST 25 IU/L (10-42) 08/01/23 14:48 ALT 36 IU/L (10-60) 08/01/23 14:48 Alkaline Phosphatase 74 IU/L (42-121) 08/01/23 14:48 Troponin I High Sens 2.8 ng/L (2.3-19.7) 08/02/23 08:56 B-Natriuretic Peptide 653 pg/mL (5-100) H 08/09/23 04:29 Total Protein 7.2 g/dL (6.4-8.9) 08/01/23 14:48 Albumin 3.7 g/dL (3.2-5.5) 08/01/23 14:48 Globulin 3.5 g/dL (2.1-4.2) 08/01/23 14:48 Albumin/Globulin Ratio 1.1 (1.0-2.2) 08/01/23 14:48 Lipase 28 U/L (11-82) 08/01/23 14:48 TSH 0.92 uIU/mL (0.34-5.60) 08/02/23 08:56 Urine Color YELLOW 08/04/23 17:53 Urine Clarity CLEAR (CLEAR) 08/04/23 17:53 Urine pH 7.0 PH (5.0-7.5) 08/04/23 17:53 Ur Specific [place] 1.015 (1.002-1.030) 08/04/23 17:53 Urine Protein NEGATIVE mg/dL (NEGATIVE) 08/04/23 17:53 Urine Glucose (UA) NEGATIVE mg/dL (NEGATIVE) 08/04/23 17:53 Urine Ketones NEGATIVE mg/dL (NEGATIVE) 08/04/23 17:53 Urine Occult Blood TRACE-INTA (NEGATIVE) 08/04/23 17:53 Urine Nitrite NEGATIVE (NEGATIVE) 08/04/23 17:53 Urine Bilirubin NEGATIVE (NEGATIVE) 08/04/23 17:53 Urine Urobilinogen 0.2 (NORMAL) E.U./dL (NORMAL) 08/04/23 17:53 Ur Leukocyte Esterase NEGATIVE (NEGATIVE) 08/04/23 17:53 Ur Microscopic Review NOT INDICATED 08/04/23 17:53 Urine Culture Comments NOT INDICATED 08/04/23 17:53 Nasal Adenovirus (PCR) NOT DETECTED 08/01/23 15:58 Nasal B. parapertussis DNA (PCR) NOT DETECTED 08/01/23 15:58 Nasal Coronavir 229E PCR NOT DETECTED 08/01/23 15:58 Nasal Coronavir HKU1 PCR NOT DETECTED 08/01/23 15:58 Nasal Coronavir NL63 PCR NOT DETECTED 08/01/23 15:58 Nasal Coronavir OC43 PCR NOT DETECTED 08/01/23 15:58 Nasal Enterovir/Rhinovir PCR NOT DETECTED 08/01/23 15:58 Nasal Influenza B PCR NOT DETECTED 08/01/23 15:58 Nasal Influenza A PCR NOT DETECTED 08/01/23 15:58 Nasal Parainfluen 1 PCR NOT DETECTED 08/01/23 15:58 Nasal Parainfluen 2 PCR NOT DETECTED 08/01/23 15:58 Nasal Parainfluen 3 PCR NOT DETECTED 08/01/23 15:58 Nasal Parainfluen 4 PCR NOT DETECTED 08/01/23 15:58 Nasal RSV (PCR) NOT DETECTED 08/01/23 15:58 Nasal Screen MRSA (PCR) NEGATIVE (NEGATIVE) 08/01/23 15:45 Nasal B.pertussis DNA PCR NOT DETECTED 08/01/23 15:58 Nasal C.pneumoniae (PCR) NOT DETECTED 08/01/23 15:58 Sean Human Metapneumo PCR NOT DETECTED 08/01/23 15:58 Nasal M.pneumoniae (PCR) NOT DETECTED 08/01/23 15:58 Nasal SARS-CoV-2 (PCR) NOT DETECTED 08/01/23 15:58 Urine Opiates Screen NEGATIVE (NEGATIVE) 08/01/23 16:00 Ur Buprenorphine Scrn NEGATIVE (NEGATIVE) 08/01/23 16:00 Ur Oxycodone Screen NEGATIVE (NEGATIVE) 08/01/23 16:00 Urine Methadone Screen NEGATIVE (NEGATIVE) 08/01/23 16:00 Ur Barbiturates Screen NEGATIVE (NEGATIVE) 08/01/23 16:00 Ur Tricyclics Screen NEGATIVE (NEGATIVE) 08/01/23 16:00 Ur Phencyclidine Scrn NEGATIVE (NEGATIVE) 08/01/23 16:00 Ur Amphetamine Screen NEGATIVE (NEGATIVE) 08/01/23 16:00 U Methamphetamines Scrn NEGATIVE (NEGATIVE) 08/01/23 16:00 U Benzodiazepines Scrn NEGATIVE (NEGATIVE) 08/01/23 16:00 Urine Cocaine Screen NEGATIVE (NEGATIVE) 08/01/23 16:00 U Cannabinoids Screen NEGATIVE (NEGATIVE) 08/01/23 16:00 Ur Drug Screen Comment CUTOFF CONC BELOW: 08/01/23 16:00 Ethyl Alcohol < 10.0 mg/dL 08/01/23 14:48
--- NOTE | 2023-08-09 13:06 | XRAY Report ---
PROCEDURE: Chest 1V INDICATIONS: Pleural effusions, interval change TECHNIQUE: One view of the chest was acquired. COMPARISON: 08/07/2023 FINDINGS: Surgical changes and devices: None. Lungs and pleura: Improved lung aeration bilaterally. Findings are less prominent in the left mid an d upper lung zones. Persistent diffuse interstitial prominence also less conspicuous. Interval decrea sed size of bilateral pleural effusions remain larger on the right. No substantial left pleural effus ion on this exam. No new dense consolidations. No pneumothorax. Mediastinum: Mediastinal contours appear stable. Heart size is enlarged. Bones and chest wall: No suspicious bony lesions. Overlying soft tissues appear unremarkable. IMPRESSION: Cardiomegaly with findings consistent with improving CHF/pulmonary edema. Persistent but decreased si ze of right pleural effusion. Reviewed by: Rob Garcia MD on 08/09/2023 1:04 PM PDT Approved by: Rob Garcia MD on 08/09/2023 1:04 PM PDT Station ID: [id number]
[2023-08-09 13:52] LABS: BILIRUBIN,URINE NEGATIVE (NEGATIVE); GLUCOSE, URINE (UA) NEGATIVE (NEGATIVE); KETONES,URINE (UA) NEGATIVE (NEGATIVE); LEUKOCYTE ESTERASE, URINE SMALL (NEGATIVE); NITRITE,URINE NEGATIVE (NEGATIVE); OCCULT BLOOD,URINE SMALL (NEGATIVE); PH,URINE 7.5 PH (5.0-7.5); PROTEIN,URINE NEGATIVE (NEGATIVE); UROBILINOGEN,URINE 1 (NORMAL) E.U./dL (NORMAL)
[2023-08-09 13:59] LABS: CLARITY,URINE CLEAR (CLEAR)
[2023-08-09 14:22] LABS: SQUAMOUS EPITHELIAL CELL,UR RARE Squamous (<= Few); WBC,URINE 0-3 /HPF (0-3)
[2023-08-09 14:23] LABS: BACTERIA,URINE Few /HPF (None Seen); MUCUS,URINE Few Strands
[2023-08-09] MEDS: HALOPERIDOL 5 MG/ML VIAL IM PRN (18:41)
[2023-08-10] MEDS: METOPROLOL 5 MG/5 ML VIAL IVP ONE (03:50)
[2023-08-10 04:43] LABS: BASOPHILS % (AUTO) 0.1 %; HCT - HEMATOCRIT 47.3 % (42.0-52.0); HGB - HEMOGLOBIN 15.2 g/dL (14.0-18.0); LYMPHOCYTES # (AUTO) 0.5 10^3/uL (1.5-3.5); LYMPHOCYTES % (AUTO) 3.4 %; MEAN CORPUSCULAR HEMOGLOBIN 30.1 pg (27.0-31.0); MEAN CORPUSCULAR HGB CONC 32.1 g/dL (32.0-36.0); MEAN CORPUSCULAR VOLUME 93.7 fL (80.0-94.0); MEAN PLATELET VOLUME 10.4 fL (7.4-11.4); MONOCYTES # (AUTO) 0.7 10^3/uL (0.0-1.0); MONOCYTES % (AUTO) 4.7 %; NEUTROPHILS # (AUTO) 12.5 10^3/uL (1.5-6.6); NEUTROPHILS % (AUTO) 90.9 %; PLT - PLATELET COUNT 192 10^3/uL (130-450); RED BLOOD COUNT 5.05 10^6/uL (4.70-6.10); RED CELL DISTRIBUTION WIDTH 15.7 % (12.0-15.0); WHITE BLOOD COUNT 13.7 x10^3/uL (4.8-10.8)
[2023-08-10 04:44] LABS: CALCIUM, IONIZED 1.05 mmol/L (1.15-1.33); VBG PH 7.494 (7.31-7.41)
[2023-08-10 04:55] LABS: MAGNESIUM 1.8 mg/dL (1.7-2.3); PHOSPHORUS 4.9 mg/dL (2.5-5.0)
[2023-08-10 04:56] LABS: CALCIUM 8.8 mg/dL (8.5-10.3); CREATININE 0.8 mg/dL (0.6-1.3); POTASSIUM 3.7 mmol/L (3.5-4.5)
[2023-08-10] MEDS: CALCIUM GLUC 1,000MG/50ML-NACL 1,000 MG/50 ML BAG IV ONE (05:38)
[2023-08-10] MEDS: POTASSIUM CHLORIDE 20 MEQ TABLET PO ONE (08:02)
[2023-08-10] MEDS: MAGNESIUM OXIDE 400 MG TABLET PO ONE (08:02)
[2023-08-10] MEDS: acetaZOLAMIDE 250 MG TABLET PO SCH (08:50)
[2023-08-10] MEDS: MULTIVITAMIN W/MINERALS TABLET PO SCH (08:50)
--- NOTE | 2023-08-10 09:00 | PROVIDER PROGRESS NOTE ---
Assessment/Plan - Problem List (1) Acute on chronic systolic heart failure Assessment/Plan: (1) Atrial fibrillation with RVR Assessment/Plan: --Continue metoprolol and digoxin. Have switched him to metoprolol succinate 200 mg daily. Rate is well controlled. --Continue Eliquis for stroke ppx. (2) Respiratory failure Qualifiers: Chronicity: acute Respiratory failure complication: hypoxia Qualified Code(s): J96.01 - Acute respiratory failure with hypoxia Assessment/Plan: --On 1 L via NC. Weaning as tolerated. Diuresing quite well. --Secondary to pulmonary edema from HFrEF. --Increased bumex to 2 mg BID IV. --Bilateral pleural effusions on CXR 08/06 likely secondary to CHF, improved on CXR 08/08. (3) Acute on chronic systolic heart failure Assessment/Plan: --TTE from 07/31 showing LVEF of 25-30%. --On metoprolol succinate 200 mg daily --Continue IV bumex 2 mg BID --Continue lisinopril. --Spironolactone added. Unfortunately Entresto and SGLT-2 not available in formulary. --Have reached out to [facility] in [place] for Cardiology assistance and possible transfer. Awaiting call back. (4) COPD (chronic obstructive pulmonary disease) Qualifiers: Emphysema type: unspecified Assessment/Plan: --Continue home inhalers. (5) Candidal intertrigo Assessment/Plan: Continue nystatin powder BID, monitor for worsening symptoms (6) Delirium due to known physiological condition Assessment/Plan: --Workup has been negative for any specific cause. Likely due to prolonged ICU stay. (7) Restlessness and agitation Assessment/Plan: -Intermittent episode of agitation and frustration with the nurses but still cooperative and understands he needs assistance. - Pt should continue taking walks around the unit with the nurses as much as he can tolerate - Pt has expressed frustration is d/t life stressors (8) Pneumonia, unspecified organism Qualifiers: Laterality: unspecified laterality Lung location: unspecified part of lung Qualified Code(s): J18.9 - Pneumonia, unspecified organism Assessment/Plan: Resolved, ceftriax and doxy administered 08/04/23 Dispo: Can likely be switched to medical status. He has improved quite a bit over last several days in terms of CHF. - Current Meds Current Meds: Current Medications Generic Name Dose Route Start Last Admin Trade Name Freq PRN Reason Stop Dose Admin Acetazolamide 250 mg 08/10/23 09:00 08/10/23 08:50 Acetazolamide 250 Mg Tablet PO 250 mg DAILY FREDRICK Administration Apixaban 5 mg 08/02/23 11:00 08/10/23 08:01 Apixaban 5 Mg Tablet PO 5 mg BID FREDRICK Administration Aspirin 81 mg 08/08/23 09:00 08/10/23 08:02 Aspirin Ec 81 Mg Tablet PO 81 mg DAILY FREDRICK Administration Atorvastatin Calcium 10 mg 08/08/23 21:00 08/09/23 21:19 Atorvastatin 10 Mg Tablet PO 10 mg HS FREDRICK Administration Bumetanide 2 mg 08/09/23 09:00 08/10/23 08:01 Bumetanide 1 Mg/4 Ml Vial IVP 2 mg BID FREDRICK Administration Digoxin 250 mcg 08/06/23 09:00 08/10/23 08:03 Digoxin 125 Mcg Tablet PO 250 mcg DAILY FREDRICK Administration Haloperidol 1 mg 08/09/23 10:17 08/09/23 18:41 Haloperidol 5 Mg/Ml Vial IM 1 mg Q6H PRN Administration Agitation Ipratropium Animas 0.5 mg 08/02/23 19:00 08/10/23 07:05 Ipratropium 0.2 Mg/Ml Neb INH 0.5 mg RTQID FREDRICK Administration Levalbuterol HCl 1.25 mg 08/01/23 16:46 08/02/23 14:36 Levalbuterol 1.25 Mg/3 Ml Neb INH 1.25 mg Q4H PRN Administration Shortness of Air/Wheezing Levalbuterol HCl 1.25 mg 08/02/23 19:00 08/10/23 07:05 Levalbuterol 1.25 Mg/3 Ml Neb INH 1.25 mg RTQID FREDRICK Administration Lisinopril 5 mg 08/05/23 11:00 08/10/23 08:02 Lisinopril 5 Mg Tablet PO 5 mg DAILY FREDRICK Administration Methylprednisolone 40 mg 08/01/23 17:00 08/10/23 05:43 Methylprednisolone Succinate 40 Mg/Ml Vial IVP 40 mg TID FREDRICK Administration Metoprolol Succinate 200 mg 08/08/23 09:00 08/10/23 08:03 Metoprolol Succinate 50 Mg Tablet PO 200 mg DAILY FREDRICK Administration Metoprolol Tartrate 5 mg 08/03/23 18:46 08/10/23 02:03 Metoprolol 5 Mg/5 Ml Vial IVP 5 mg Q6H PRN Administration heart rate > 110 for >3 minute Multivitamins/Minerals 1 tab 08/10/23 08:00 08/10/23 08:50 Multivitamin W/Minerals Tablet PO 1 tab DAILYWM FREDRICK Administration Nystatin 1 applic 08/02/23 11:00 08/10/23 08:01 Nystatin Powder 15 Gm TOP 1 applic BID FREDRICK Administration Oxycodone HCl 5 mg 08/01/23 16:34 08/08/23 06:02 Oxycodone 5 Mg Tablet PO 5 mg Q4HR PRN Administration Pain 5 to 7 Pantoprazole Sodium 40 mg 08/07/23 07:00 08/09/23 09:56 Pantoprazole 40 Mg Tablet PO 40 mg QDAC FREDRICK Administration Polyethylene Glycol 17 gm 08/03/23 09:00 08/10/23 08:01 Polyethylene Glycol 3350 17 Gm Packet PO 17 gm DAILY FREDRICK Administration Sodium Chloride 10 ml 08/01/23 17:00 08/10/23 08:03 Sodium Chloride Flush 0.9% 10 Ml Syringe IVP 10 ml 0100,0900,1700 FREDRICK Administration Sodium Chloride 10 ml 08/01/23 16:34 08/08/23 06:05 Sodium Chloride Flush 0.9% 10 Ml Syringe IVP 10 ml PRN PRN Administration NEEDED PER PROVIDER ORDERS Spironolactone 25 mg 08/08/23 09:00 08/10/23 08:01 Spironolactone 25 Mg Tablet PO 25 mg DAILY FREDRICK Administration - Lab Result Fish Bone Diagrams: 08/10/23 04:20 08/10/23 04:20 - Additional Planning My Orders: My Active Orders 08/09/23 09:00 Bumetanide Inj [Bumex Inj] 2 mg IVP BID 08/09/23 10:17 Haloperidol Inj [Haldol Inj] 1 mg IM Q6H PRN 08/09/23 13:45 CUL, URINE [RM] Routine 08/10/23 08:00 Multivitamin W/Minerals [Theragran M] 1 tab PO DAILYWM 08/10/23 09:00 acetaZOLAMIDE [Diamox] 250 mg PO DAILY 08/11/23 05:00 BMP - BASIC METABOLIC PANEL [CHEM] DAILYLAB CBC [CBC - COMP BLD CT W/AUTO DIFF] [HEME] DAILYLAB 08/11/23 09:00 BNP - B-NATRIURETIC PEPTIDE [CHEM] DAILY Subjective - Subjective Patient Reports: Resting Comfortably, No Complaints Objective Vital Signs: Vital Signs - 24 hr 08/09/23 08/09/23 08/09/23 09:00 09:50 10:00 Temperature Heart Rate 111 H Heart Rate [ 102 H 122 H Monitoring electrodes] Respiratory 22 25 H 21 Rate Blood Pressure Blood Pressure 152/105 H 137/85 H [Left Brachial artery] Blood Pressure [Right Brachial artery] O2 Saturation 92 95 If not protocol 4 4 3 : Oxygen Flow, liters/minute 08/09/23 08/09/23 08/09/23 11:00 12:00 13:00 Temperature Heart Rate Heart Rate [ 108 H 117 H 111 H Monitoring electrodes] Respiratory 18 21 18 Rate Blood Pressure Blood Pressure 113/68 [Left Brachial artery] Blood Pressure 139/92 H 112/73 [Right Brachial artery] O2 Saturation 90 L 90 L 92 If not protocol 4 4 4 : Oxygen Flow, liters/minute 08/09/23 08/09/23 08/09/23 14:00 15:00 16:00 Temperature 37.1 C Heart Rate Heart Rate [ 111 H 110 H 108 H Monitoring electrodes] Respiratory 21 95 H 18 Rate Blood Pressure Blood Pressure [Left Brachial artery] Blood Pressure 118/66 118/84 H 127/81 H [Right Brachial artery] O2 Saturation 90 L 19 L 93 If not protocol 4 4 4 : Oxygen Flow, liters/minute 08/09/23 08/09/23 08/09/23 17:00 18:00 19:00 Temperature Heart Rate Heart Rate [ 104 H 116 H 107 H Monitoring electrodes] Respiratory 18 19 22 Rate Blood Pressure Blood Pressure [Left Brachial artery] Blood Pressure 120/89 H 122/80 117/80 [Right Brachial artery] O2 Saturation 95 94 93 If not protocol 4 3 3 : Oxygen Flow, liters/minute 08/09/23 08/09/23 08/09/23 20:00 20:33 21:00 Temperature 36.5 C Heart Rate Heart Rate [ 111 H 102 H Monitoring electrodes] Respiratory 25 H 19 Rate Blood Pressure Blood Pressure [Left Brachial artery] Blood Pressure 100/87 H 95/81 H [Right Brachial artery] O2 Saturation 96 92 If not protocol 3 3 3 : Oxygen Flow, liters/minute 08/09/23 08/09/23 08/10/23 22:00 23:00 00:00 Temperature 36.7 C Heart Rate Heart Rate [ 112 H 106 H 106 H Monitoring electrodes] Respiratory 25 H 22 20 Rate Blood Pressure Blood Pressure [Left Brachial artery] Blood Pressure 126/81 H 131/84 H 122/88 H [Right Brachial artery] O2 Saturation 90 L 89 L 90 L If not protocol 3 3 5 : Oxygen Flow, liters/minute 08/10/23 08/10/23 08/10/23 01:00 02:00 02:03 Temperature Heart Rate Heart Rate [ 95 127 H Monitoring electrodes] Respiratory 24 23 Rate Blood Pressure 145/95 H Blood Pressure [Left Brachial artery] Blood Pressure 147/87 H 145/95 H [Right Brachial artery] O2 Saturation 91 L 92 If not protocol 5 5 : Oxygen Flow, liters/minute 08/10/23 08/10/23 08/10/23 02:33 02:42 03:00 Temperature Heart Rate Heart Rate [ 119 H 110 H Monitoring electrodes] Respiratory 24 Rate Blood Pressure 137/105 H Blood Pressure [Left Brachial artery] Blood Pressure 137/105 H 122/70 [Right Brachial artery] O2 Saturation 93 If not protocol 15 : Oxygen Flow, liters/minute 08/10/23 08/10/23 08/10/23 03:50 04:00 04:24 Temperature 36.5 C Heart Rate Heart Rate [ 97 Monitoring electrodes] Respiratory 18 Rate Blood Pressure 133/82 H Blood Pressure [Left Brachial artery] Blood Pressure 128/89 H [Right Brachial artery] O2 Saturation 89 L If not protocol 15 : Oxygen Flow, liters/minute 08/10/23 08/10/23 08/10/23 05:00 06:00 07:00 Temperature Heart Rate Heart Rate [ 82 83 93 Monitoring electrodes] Respiratory 19 23 24 Rate Blood Pressure Blood Pressure [Left Brachial artery] Blood Pressure 111/89 H 130/79 127/98 H [Right Brachial artery] O2 Saturation 95 93 90 L If not protocol 4 2 1 : Oxygen Flow, liters/minute 08/10/23 08/10/23 07:08 08:00 Temperature 36.6 C Heart Rate 98 Heart Rate [ 120 H Monitoring electrodes] Respiratory 23 19 Rate Blood Pressure Blood Pressure [Left Brachial artery] Blood Pressure 97/83 H [Right Brachial artery] O2 Saturation 92 If not protocol 1 1 : Oxygen Flow, liters/minute Oxygen O2 Source [With Activity] Oxymizer O2 Source Nasal cannula I&O (Last 24 Hrs): Intake and Output Totals x24h 08/08/23 08/09/23 08/10/23 23:59 23:59 23:59 Intake Total 1440 1798.333 670 Output Total 2230 4354 1515 Balance -790 -2555.667 -845 General: Alert, Oriented x3, Cooperative, No acute distress Cardiovascular: Regular rate, Normal S1, Normal S2, No murmurs Respiratory: Chest non-tender, No respiratory distress, Breath sounds nml Abdomen: Normal bowel sounds, Soft, No tenderness, No hepatospenomegaly, No masses - Results Results: Laboratory Results WBC 13.7 x10^3/uL (4.8-10.8) H 08/10/23 04:20 RBC 5.05 10^6/uL (4.70-6.10) 08/10/23 04:20 Hgb 15.2 g/dL (14.0-18.0) 08/10/23 04:20 Hct 47.3 % (42.0-52.0) 08/10/23 04:20 MCV 93.7 fL (80.0-94.0) 08/10/23 04:20 MCH 30.1 pg (27.0-31.0) 08/10/23 04:20 MCHC 32.1 g/dL (32.0-36.0) 08/10/23 04:20 RDW 15.7 % (12.0-15.0) H 08/10/23 04:20 Plt Count 192 10^3/uL (130-450) 08/10/23 04:20 MPV 10.4 fL (7.4-11.4) 08/10/23 04:20 Neut # (Auto) 12.5 10^3/uL (1.5-6.6) H 08/10/23 04:20 Lymph # (Auto) 0.5 10^3/uL (1.5-3.5) L 08/10/23 04:20 Emery # (Auto) 0.7 10^3/uL (0.0-1.0) 08/10/23 04:20 Eos # (Auto) 0.0 10^3/uL (0.0-0.7) 08/10/23 04:20 Baso # (Auto) 0.0 10^3/uL (0.0-0.1) 08/10/23 04:20 Absolute Nucleated RBC 0.00 x10^3/uL 08/10/23 04:20 Nucleated RBC % 0.0 /100WBC 08/10/23 04:20 PT 15.2 secs (9.9-12.6) H 08/01/23 14:48 INR 1.4 (0.8-1.2) H 08/01/23 14:48 Bld Gas Analysis Time 0458 08/04/23 04:50 Sample Site RIGHT BRACHIAL 08/04/23 04:50 ABG pH 7.52 (7.35-7.45) H 08/04/23 04:50 ABG pCO2 46 mmHg (34-45) H 08/04/23 04:50 ABG pO2 55 mmHg (80-100) L 08/04/23 04:50 ABG HCO3 36.2 mmol/L (22.0-26.0) H 08/04/23 04:50 ABG Total CO2 37.6 MMOL/L (21.0-29.0) H 08/04/23 04:50 ABG O2 Saturation 89 % (94-98) L 08/04/23 04:50 ABG Base Excess 11.7 mmol/L (-2.0-3.0) H 08/04/23 04:50 Harvinder Test NEGATIVE 08/04/23 04:50 VBG pH 7.494 (7.31-7.41) H 08/10/23 04:20 Ionized Calcium 1.05 mmol/L (1.15-1.33) L 08/10/23 04:20 O2 Delivery Device OXYMASK 08/04/23 04:50 O2 Liters/Min 12.00 LPM 08/04/23 04:50 FiO2 68.00 08/04/23 04:50 EPAP 4 cmH2O 08/01/23 15:52 IPAP 8 cmH2O 08/01/23 15:52 Sodium 138 mmol/L (135-145) 08/10/23 04:20 Potassium 3.7 mmol/L (3.5-4.5) 08/10/23 04:20 Chloride 98 mmol/L (101-111) L 08/10/23 04:20 Carbon Dioxide 34 mmol/L (21-32) H 08/10/23 04:20 Anion Gap 6.0 (6-13) 08/10/23 04:20 BUN 38 mg/dL (6-20) H 08/10/23 04:20 Creatinine 0.8 mg/dL (0.6-1.3) 08/10/23 04:20 Estimated GFR (MDRD) 95 (>89) 08/10/23 04:20 Glucose 165 mg/dL (74-104) H 08/10/23 04:20 Calcium 8.8 mg/dL (8.5-10.3) 08/10/23 04:20 Phosphorus 4.9 mg/dL (2.5-5.0) 08/10/23 04:20 Magnesium 1.8 mg/dL (1.7-2.3) 08/10/23 04:20 Total Bilirubin 0.8 mg/dL (0.2-1.0) 08/01/23 14:48 AST 25 IU/L (10-42) 08/01/23 14:48 ALT 36 IU/L (10-60) 08/01/23 14:48 Alkaline Phosphatase 74 IU/L (42-121) 08/01/23 14:48 Troponin I High Sens 2.8 ng/L (2.3-19.7) 08/02/23 08:56 B-Natriuretic Peptide 760 pg/mL (5-100) H 08/10/23 04:20 Total Protein 7.2 g/dL (6.4-8.9) 08/01/23 14:48 Albumin 3.7 g/dL (3.2-5.5) 08/01/23 14:48 Globulin 3.5 g/dL (2.1-4.2) 08/01/23 14:48 Albumin/Globulin Ratio 1.1 (1.0-2.2) 08/01/23 14:48 Lipase 28 U/L (11-82) 08/01/23 14:48 TSH 0.92 uIU/mL (0.34-5.60) 08/02/23 08:56 Urine Color YELLOW 08/09/23 13:45 Urine Clarity CLEAR (CLEAR) 08/09/23 13:45 Urine pH 7.5 PH (5.0-7.5) 08/09/23 13:45 Ur Specific Clifford <=1.005 (1.002-1.030) 08/09/23 13:45 Urine Protein NEGATIVE mg/dL (NEGATIVE) 08/09/23 13:45 Urine Glucose (UA) NEGATIVE mg/dL (NEGATIVE) 08/09/23 13:45 Urine Ketones NEGATIVE mg/dL (NEGATIVE) 08/09/23 13:45 Urine Occult Blood SMALL (NEGATIVE) H 08/09/23 13:45 Urine Nitrite NEGATIVE (NEGATIVE) 08/09/23 13:45 Urine Bilirubin NEGATIVE (NEGATIVE) 08/09/23 13:45 Urine Urobilinogen 1 (NORMAL) E.U./dL (NORMAL) 08/09/23 13:45 Ur Leukocyte Esterase SMALL (NEGATIVE) H 08/09/23 13:45 Urine RBC 11-25 /HPF (0-5) H 08/09/23 13:45 Urine WBC 0-3 /HPF (0-3) 08/09/23 13:45 Ur Squamous Epith Cells RARE Squamous (<= Few) 08/09/23 13:45 Urine Bacteria Few /HPF (None Seen) 08/09/23 13:45 Urine Mucus Few Strands 08/09/23 13:45 Ur Microscopic Review NOT INDICATED 08/04/23 17:53 Urine Culture Comments INDICATED 08/09/23 13:45 Nasal Adenovirus (PCR) NOT DETECTED 08/01/23 15:58 Nasal B. parapertussis DNA (PCR) NOT DETECTED 08/01/23 15:58 Nasal Coronavir 229E PCR NOT DETECTED 08/01/23 15:58 Nasal Coronavir HKU1 PCR NOT DETECTED 08/01/23 15:58 Nasal Coronavir NL63 PCR NOT DETECTED 08/01/23 15:58 Nasal Coronavir OC43 PCR NOT DETECTED 08/01/23 15:58 Nasal Enterovir/Rhinovir PCR NOT DETECTED 08/01/23 15:58 Nasal Influenza B PCR NOT DETECTED 08/01/23 15:58 Nasal Influenza A PCR NOT DETECTED 08/01/23 15:58 Nasal Parainfluen 1 PCR NOT DETECTED 08/01/23 15:58 Nasal Parainfluen 2 PCR NOT DETECTED 08/01/23 15:58 Nasal Parainfluen 3 PCR NOT DETECTED 08/01/23 15:58 Nasal Parainfluen 4 PCR NOT DETECTED 08/01/23 15:58 Nasal RSV (PCR) NOT DETECTED 08/01/23 15:58 Nasal Screen MRSA (PCR) NEGATIVE (NEGATIVE) 08/01/23 15:45 Nasal B.pertussis DNA PCR NOT DETECTED 08/01/23 15:58 Nasal C.pneumoniae (PCR) NOT DETECTED 08/01/23 15:58 Sean Human Metapneumo PCR NOT DETECTED 08/01/23 15:58 Nasal M.pneumoniae (PCR) NOT DETECTED 08/01/23 15:58 Nasal SARS-CoV-2 (PCR) NOT DETECTED 08/01/23 15:58 Urine Opiates Screen NEGATIVE (NEGATIVE) 08/01/23 16:00 Ur Buprenorphine Scrn NEGATIVE (NEGATIVE) 08/01/23 16:00 Ur Oxycodone Screen NEGATIVE (NEGATIVE) 08/01/23 16:00 Urine Methadone Screen NEGATIVE (NEGATIVE) 08/01/23 16:00 Ur Barbiturates Screen NEGATIVE (NEGATIVE) 08/01/23 16:00 Ur Tricyclics Screen NEGATIVE (NEGATIVE) 08/01/23 16:00 Ur Phencyclidine Scrn NEGATIVE (NEGATIVE) 08/01/23 16:00 Ur Amphetamine Screen NEGATIVE (NEGATIVE) 08/01/23 16:00 U Methamphetamines Scrn NEGATIVE (NEGATIVE) 08/01/23 16:00 U Benzodiazepines Scrn NEGATIVE (NEGATIVE) 08/01/23 16:00 Urine Cocaine Screen NEGATIVE (NEGATIVE) 08/01/23 16:00 U Cannabinoids Screen NEGATIVE (NEGATIVE) 08/01/23 16:00 Ur Drug Screen Comment CUTOFF CONC BELOW: 08/01/23 16:00 Ethyl Alcohol < 10.0 mg/dL 08/01/23 14:48
[2023-08-10] MEDS: BUMETANIDE 1 MG TABLET PO SCH (13:57)
[2023-08-10] MEDS ORDERED: IPRATROPIUM 0.2 MG/ML NEB INH PRN (15:40)
[2023-08-11 04:45] LABS: BASOPHILS % (AUTO) 0.1 %; EOSINOPHILS # (AUTO) 0.2 10^3/uL (0.0-0.7); EOSINOPHILS % (AUTO) 1.3 %; HCT - HEMATOCRIT 47.4 % (42.0-52.0); HGB - HEMOGLOBIN 15.1 g/dL (14.0-18.0); LYMPHOCYTES # (AUTO) 2.4 10^3/uL (1.5-3.5); LYMPHOCYTES % (AUTO) 17.1 %; MEAN CORPUSCULAR HEMOGLOBIN 29.8 pg (27.0-31.0); MEAN CORPUSCULAR HGB CONC 31.9 g/dL (32.0-36.0); MEAN CORPUSCULAR VOLUME 93.7 fL (80.0-94.0); MONOCYTES # (AUTO) 1.5 10^3/uL (0.0-1.0); MONOCYTES % (AUTO) 10.4 %; NEUTROPHILS # (AUTO) 9.8 10^3/uL (1.5-6.6); PLT - PLATELET COUNT 193 10^3/uL (130-450); RED BLOOD COUNT 5.06 10^6/uL (4.70-6.10); RED CELL DISTRIBUTION WIDTH 16.1 % (12.0-15.0)
[2023-08-11 05:05] LABS: POTASSIUM 3.9 mmol/L (3.5-4.5)
--- NOTE | 2023-08-11 10:12 | Discharge Plan ---
Discharge Plan Problem Reviewed?: Yes Disposition: Home Health Service Prescriptions: Spironolactone [Aldactone] 25 mg PO DAILY #30 tab Bumetanide [Bumex] 2 mg PO BIDDIURETIC #60 tab Apixaban [Eliquis] 5 mg PO BID #60 tab Digoxin [Lanoxin] 250 mcg PO DAILY #30 tab Metoprolol Succinate [Toprol Xl] 200 mg PO DAILY #30 tab lisinopriL [Zestril] 5 mg PO DAILY #30 tab No Smoking: If you smoke, Please STOP! Call for help.
--- NOTE | 2023-08-11 10:57 | PROVIDER PROGRESS NOTE ---
Assessment/Plan - Problem List (1) Acute on chronic systolic heart failure Assessment/Plan: (1) Atrial fibrillation with RVR Assessment/Plan: --Continue metoprolol and digoxin. Have switched him to metoprolol succinate 200 mg daily. Rate is well controlled. --Continue Eliquis for stroke ppx. (2) Respiratory failure Qualifiers: Chronicity: acute Respiratory failure complication: hypoxia Qualified Code(s): J96.01 - Acute respiratory failure with hypoxia Assessment/Plan: --On 1 L via NC. Weaning as tolerated. Diuresing quite well. --Secondary to pulmonary edema from HFrEF. --Currently on PO Bumex 2 mg BID --Bilateral pleural effusions on CXR 08/06 likely secondary to CHF, improved on CXR 08/08. --He will need to go home oxygen. Home O2 test performed. He needs 2 L at rest and 3 L with acitivyt. (3) Acute on chronic systolic heart failure Assessment/Plan: --TTE from 07/31 showing LVEF of 25-30%. --On metoprolol succinate 200 mg daily --Continue IV bumex 2 mg BID --Continue lisinopril. --Spironolactone added. Unfortunately Entresto and SGLT-2 not available in formulary. --Will need outpatient Cards follow up. (4) COPD (chronic obstructive pulmonary disease) Qualifiers: Emphysema type: unspecified Assessment/Plan: --Continue home inhalers. (5) Candidal intertrigo Assessment/Plan: Continue nystatin powder BID, monitor for worsening symptoms (6) Delirium due to known physiological condition Assessment/Plan: --Workup has been negative for any specific cause. Likely due to prolonged ICU stay. (7) Restlessness and agitation Assessment/Plan: -Intermittent episode of agitation and frustration with the nurses but still cooperative and understands he needs assistance. - Pt should continue taking walks around the unit with the nurses as much as he can tolerate - Pt has expressed frustration is d/t life stressors (8) Pneumonia, unspecified organism Qualifiers: Laterality: unspecified laterality Lung location: unspecified part of lung Qualified Code(s): J18.9 - Pneumonia, unspecified organism Assessment/Plan: Resolved, ceftriax and doxy administered 08/04/23 Dispo: Anticipate DC tomorrow. Family is discussing SNF vs home. - Current Meds Current Meds: Current Medications Generic Name Dose Route Start Last Admin Trade Name Freq PRN Reason Stop Dose Admin Acetazolamide 250 mg 08/10/23 09:00 08/10/23 08:50 Acetazolamide 250 Mg Tablet PO 250 mg DAILY FREDRICK Administration Apixaban 5 mg 08/02/23 11:00 08/11/23 10:25 Apixaban 5 Mg Tablet PO 5 mg BID FREDRICK Administration Aspirin 81 mg 08/08/23 09:00 08/11/23 10:25 Aspirin Ec 81 Mg Tablet PO 81 mg DAILY FREDRICK Administration Atorvastatin Calcium 10 mg 08/08/23 21:00 08/10/23 20:34 Atorvastatin 10 Mg Tablet PO 10 mg HS FREDRICK Administration Bumetanide 2 mg 08/10/23 14:00 08/11/23 06:11 Bumetanide 1 Mg Tablet PO 2 mg BIDDIURETIC FREDRICK Administration Digoxin 250 mcg 08/06/23 09:00 08/11/23 10:25 Digoxin 125 Mcg Tablet PO 250 mcg DAILY FREDRICK Administration Haloperidol 1 mg 08/09/23 10:17 08/09/23 18:41 Haloperidol 5 Mg/Ml Vial IM 1 mg Q6H PRN Administration Agitation Levalbuterol HCl 1.25 mg 08/01/23 16:46 08/02/23 14:36 Levalbuterol 1.25 Mg/3 Ml Neb INH 1.25 mg Q4H PRN Administration Shortness of Air/Wheezing Lisinopril 5 mg 08/05/23 11:00 08/10/23 08:02 Lisinopril 5 Mg Tablet PO 5 mg DAILY FREDRICK Administration Metoprolol Succinate 200 mg 08/08/23 09:00 08/10/23 08:03 Metoprolol Succinate 50 Mg Tablet PO 200 mg DAILY FREDRICK Administration Metoprolol Tartrate 5 mg 08/03/23 18:46 08/10/23 02:03 Metoprolol 5 Mg/5 Ml Vial IVP 5 mg Q6H PRN Administration heart rate > 110 for >3 minute Multivitamins/Minerals 1 tab 08/10/23 08:00 08/11/23 10:25 Multivitamin W/Minerals Tablet PO 1 tab DAILYWM FREDRICK Administration Nystatin 1 applic 08/02/23 11:00 08/10/23 20:34 Nystatin Powder 15 Gm TOP 1 applic BID FREDRICK Administration Oxycodone HCl 5 mg 08/01/23 16:34 08/08/23 06:02 Oxycodone 5 Mg Tablet PO 5 mg Q4HR PRN Administration Pain 5 to 7 Pantoprazole Sodium 40 mg 08/07/23 07:00 08/11/23 06:11 Pantoprazole 40 Mg Tablet PO 40 mg QDAC FREDRICK Administration Polyethylene Glycol 17 gm 08/03/23 09:00 08/11/23 10:28 Polyethylene Glycol 3350 17 Gm Packet PO 17 gm DAILY FREDRICK Administration Sodium Chloride 10 ml 08/01/23 17:00 08/11/23 00:05 Sodium Chloride Flush 0.9% 10 Ml Syringe IVP 10 ml 0100,0900,1700 FREDRICK Administration Sodium Chloride 10 ml 08/01/23 16:34 08/08/23 06:05 Sodium Chloride Flush 0.9% 10 Ml Syringe IVP 10 ml PRN PRN Administration NEEDED PER PROVIDER ORDERS Spironolactone 25 mg 08/08/23 09:00 08/10/23 08:01 Spironolactone 25 Mg Tablet PO 25 mg DAILY FREDRICK Administration - Lab Result Fish Bone Diagrams: 08/11/23 04:20 08/11/23 04:20 - Additional Planning My Orders: My Active Orders 08/10/23 13:51 Telemetry- [RC] Q4HR 08/10/23 14:00 Bumetanide [Bumex] 2 mg PO BIDDIURETIC 08/10/23 15:40 Ipratropium [Atrovent] 0.5 mg INH RTQ4H PRN 08/11/23 07:42 Oxygen Desat. Study w/Exercise [RC] .ONCE Subjective - Subjective Patient Reports: Feeling Better, Resting Comfortably, No Complaints Objective Vital Signs: Vital Signs - 24 hr 08/10/23 08/10/23 08/10/23 11:00 12:00 13:14 Temperature 36.4 C L Heart Rate [ 99 98 108 H Monitoring electrodes] Respiratory 20 22 12 Rate Blood Pressure 112/75 [Left Brachial artery] Blood Pressure 105/73 96/67 [Right Brachial artery] O2 Saturation 91 L 95 95 If not protocol : Oxygen Flow, liters/minute 08/10/23 08/10/23 08/11/23 16:03 21:00 00:23 Temperature 37.0 C 36.5 C 36.5 C Heart Rate [ 55 L 91 99 Monitoring electrodes] Respiratory 18 18 20 Rate Blood Pressure [Left Brachial artery] Blood Pressure 86/5 L 83/54 L 127/86 H [Right Brachial artery] O2 Saturation 88 L 92 90 L If not protocol : Oxygen Flow, liters/minute 08/11/23 08/11/23 08/11/23 05:00 07:41 10:25 Temperature 36.4 C L 36.5 C Heart Rate [ 63 56 L Monitoring electrodes] Respiratory 18 18 20 Rate Blood Pressure 88/52 L [Left Brachial artery] Blood Pressure 132/87 H 119/68 [Right Brachial artery] O2 Saturation 67 L 90 L 2 L If not protocol 2 : Oxygen Flow, liters/minute Oxygen O2 Source [With Activity] Oxymizer O2 Source Nasal cannula I&O (Last 24 Hrs): Intake and Output Totals x24h 08/09/23 08/10/23 08/11/23 23:59 23:59 23:59 Intake Total 4234.464 1732 840 Output Total 4354 3320 1550 Balance -2555.667 -1850 -710 General: Alert, Oriented x3, Cooperative Cardiovascular: Regular rate, Normal S1, Normal S2, No murmurs Respiratory: Chest non-tender, No respiratory distress, Breath sounds nml Abdomen: Normal bowel sounds, Soft, No tenderness, No hepatospenomegaly, No masses - Results Results: Laboratory Results WBC 14.0 x10^3/uL (4.8-10.8) H 08/11/23 04:20 RBC 5.06 10^6/uL (4.70-6.10) 08/11/23 04:20 Hgb 15.1 g/dL (14.0-18.0) 08/11/23 04:20 Hct 47.4 % (42.0-52.0) 08/11/23 04:20 MCV 93.7 fL (80.0-94.0) 08/11/23 04:20 MCH 29.8 pg (27.0-31.0) 08/11/23 04:20 MCHC 31.9 g/dL (32.0-36.0) L 08/11/23 04:20 RDW 16.1 % (12.0-15.0) H 08/11/23 04:20 Plt Count 193 10^3/uL (130-450) 08/11/23 04:20 MPV 11.0 fL (7.4-11.4) 08/11/23 04:20 Neut # (Auto) 9.8 10^3/uL (1.5-6.6) H 08/11/23 04:20 Lymph # (Auto) 2.4 10^3/uL (1.5-3.5) 08/11/23 04:20 [place] # (Auto) 1.5 10^3/uL (0.0-1.0) H 08/11/23 04:20 Eos # (Auto) 0.2 10^3/uL (0.0-0.7) 08/11/23 04:20 Baso # (Auto) 0.0 10^3/uL (0.0-0.1) 08/11/23 04:20 Absolute Nucleated RBC 0.00 x10^3/uL 08/11/23 04:20 Nucleated RBC % 0.0 /100WBC 08/11/23 04:20 PT 15.2 secs (9.9-12.6) H 08/01/23 14:48 INR 1.4 (0.8-1.2) H 08/01/23 14:48 Bld Gas Analysis Time 0458 08/04/23 04:50 Sample Site RIGHT BRACHIAL 08/04/23 04:50 ABG pH 7.52 (7.35-7.45) H 08/04/23 04:50 ABG pCO2 46 mmHg (34-45) H 08/04/23 04:50 ABG pO2 55 mmHg (80-100) L 08/04/23 04:50 ABG HCO3 36.2 mmol/L (22.0-26.0) H 08/04/23 04:50 ABG Total CO2 37.6 MMOL/L (21.0-29.0) H 08/04/23 04:50 ABG O2 Saturation 89 % (94-98) L 08/04/23 04:50 ABG Base Excess 11.7 mmol/L (-2.0-3.0) H 08/04/23 04:50 Harvinder Test NEGATIVE 08/04/23 04:50 VBG pH 7.494 (7.31-7.41) H 08/10/23 04:20 Ionized Calcium 1.05 mmol/L (1.15-1.33) L 08/10/23 04:20 O2 Delivery Device OXYMASK 08/04/23 04:50 O2 Liters/Min 12.00 LPM 08/04/23 04:50 FiO2 68.00 08/04/23 04:50 EPAP 4 cmH2O 08/01/23 15:52 IPAP 8 cmH2O 08/01/23 15:52 Sodium 141 mmol/L (135-145) 08/11/23 04:20 Potassium 3.9 mmol/L (3.5-4.5) 08/11/23 04:20 Chloride 100 mmol/L (101-111) L 08/11/23 04:20 Carbon Dioxide 36 mmol/L (21-32) H 08/11/23 04:20 Anion Gap 5.0 (6-13) L 08/11/23 04:20 BUN 46 mg/dL (6-20) H 08/11/23 04:20 Creatinine 1.0 mg/dL (0.6-1.3) 08/11/23 04:20 Estimated GFR (MDRD) 73 (>89) L 08/11/23 04:20 Glucose 85 mg/dL (74-104) 08/11/23 04:20 Calcium 9.0 mg/dL (8.5-10.3) 08/11/23 04:20 Phosphorus 4.9 mg/dL (2.5-5.0) 08/10/23 04:20 Magnesium 1.8 mg/dL (1.7-2.3) 08/10/23 04:20 Total Bilirubin 0.8 mg/dL (0.2-1.0) 08/01/23 14:48 AST 25 IU/L (10-42) 08/01/23 14:48 ALT 36 IU/L (10-60) 08/01/23 14:48 Alkaline Phosphatase 74 IU/L (42-121) 08/01/23 14:48 Troponin I High Sens 2.8 ng/L (2.3-19.7) 08/02/23 08:56 B-Natriuretic Peptide 419 pg/mL (5-100) H 08/11/23 04:20 Total Protein 7.2 g/dL (6.4-8.9) 08/01/23 14:48 Albumin 3.7 g/dL (3.2-5.5) 08/01/23 14:48 Globulin 3.5 g/dL (2.1-4.2) 08/01/23 14:48 Albumin/Globulin Ratio 1.1 (1.0-2.2) 08/01/23 14:48 Lipase 28 U/L (11-82) 08/01/23 14:48 TSH 0.92 uIU/mL (0.34-5.60) 08/02/23 08:56 Urine Color YELLOW 08/09/23 13:45 Urine Clarity CLEAR (CLEAR) 08/09/23 13:45 Urine pH 7.5 PH (5.0-7.5) 08/09/23 13:45 Ur Specific [place] <=1.005 (1.002-1.030) 08/09/23 13:45 Urine Protein NEGATIVE mg/dL (NEGATIVE) 08/09/23 13:45 Urine Glucose (UA) NEGATIVE mg/dL (NEGATIVE) 08/09/23 13:45 Urine Ketones NEGATIVE mg/dL (NEGATIVE) 08/09/23 13:45 Urine Occult Blood SMALL (NEGATIVE) H 08/09/23 13:45 Urine Nitrite NEGATIVE (NEGATIVE) 08/09/23 13:45 Urine Bilirubin NEGATIVE (NEGATIVE) 08/09/23 13:45 Urine Urobilinogen 1 (NORMAL) E.U./dL (NORMAL) 08/09/23 13:45 Ur Leukocyte Esterase SMALL (NEGATIVE) H 08/09/23 13:45 Urine RBC 11-25 /HPF (0-5) H 08/09/23 13:45 Urine WBC 0-3 /HPF (0-3) 08/09/23 13:45 Ur Squamous Epith Cells RARE Squamous (<= Few) 08/09/23 13:45 Urine Bacteria Few /HPF (None Seen) 08/09/23 13:45 Urine Mucus Few Strands 08/09/23 13:45 Ur Microscopic Review NOT INDICATED 08/04/23 17:53 Urine Culture Comments INDICATED 08/09/23 13:45 Nasal Adenovirus (PCR) NOT DETECTED 08/01/23 15:58 Nasal B. parapertussis DNA (PCR) NOT DETECTED 08/01/23 15:58 Nasal Coronavir 229E PCR NOT DETECTED 08/01/23 15:58 Nasal Coronavir HKU1 PCR NOT DETECTED 08/01/23 15:58 Nasal Coronavir NL63 PCR NOT DETECTED 08/01/23 15:58 Nasal Coronavir OC43 PCR NOT DETECTED 08/01/23 15:58 Nasal Enterovir/Rhinovir PCR NOT DETECTED 08/01/23 15:58 Nasal Influenza B PCR NOT DETECTED 08/01/23 15:58 Nasal Influenza A PCR NOT DETECTED 08/01/23 15:58 Nasal Parainfluen 1 PCR NOT DETECTED 08/01/23 15:58 Nasal Parainfluen 2 PCR NOT DETECTED 08/01/23 15:58 Nasal Parainfluen 3 PCR NOT DETECTED 08/01/23 15:58 Nasal Parainfluen 4 PCR NOT DETECTED 08/01/23 15:58 Nasal RSV (PCR) NOT DETECTED 08/01/23 15:58 Nasal Screen MRSA (PCR) NEGATIVE (NEGATIVE) 08/01/23 15:45 Nasal B.pertussis DNA PCR NOT DETECTED 08/01/23 15:58 Nasal C.pneumoniae (PCR) NOT DETECTED 08/01/23 15:58 Sean Human Metapneumo PCR NOT DETECTED 08/01/23 15:58 Nasal M.pneumoniae (PCR) NOT DETECTED 08/01/23 15:58 Nasal SARS-CoV-2 (PCR) NOT DETECTED 08/01/23 15:58 Urine Opiates Screen NEGATIVE (NEGATIVE) 08/01/23 16:00 Ur Buprenorphine Scrn NEGATIVE (NEGATIVE) 08/01/23 16:00 Ur Oxycodone Screen NEGATIVE (NEGATIVE) 08/01/23 16:00 Urine Methadone Screen NEGATIVE (NEGATIVE) 08/01/23 16:00 Ur Barbiturates Screen NEGATIVE (NEGATIVE) 08/01/23 16:00 Ur Tricyclics Screen NEGATIVE (NEGATIVE) 08/01/23 16:00 Ur Phencyclidine Scrn NEGATIVE (NEGATIVE) 08/01/23 16:00 Ur Amphetamine Screen NEGATIVE (NEGATIVE) 08/01/23 16:00 U Methamphetamines Scrn NEGATIVE (NEGATIVE) 08/01/23 16:00 U Benzodiazepines Scrn NEGATIVE (NEGATIVE) 08/01/23 16:00 Urine Cocaine Screen NEGATIVE (NEGATIVE) 08/01/23 16:00 U Cannabinoids Screen NEGATIVE (NEGATIVE) 08/01/23 16:00 Ur Drug Screen Comment CUTOFF CONC BELOW: 08/01/23 16:00 Ethyl Alcohol < 10.0 mg/dL 08/01/23 14:48
[2023-08-11] MEDS: ALBUMIN 25% 12.5 GM/50 ML VIAL IV SCH (12:47)
--- NOTE | 2023-08-12 11:22 | PROVIDER PROGRESS NOTE ---
Assessment/Plan - Problem List (1) Acute on chronic systolic heart failure Assessment/Plan: (1) Atrial fibrillation with RVR Assessment/Plan: --Continue metoprolol and digoxin. Have switched him to metoprolol succinate 200 mg daily. Rate is well controlled. --Continue Eliquis for stroke ppx. (2) Respiratory failure Qualifiers: Chronicity: acute Respiratory failure complication: hypoxia Qualified Code(s): J96.01 - Acute respiratory failure with hypoxia Assessment/Plan: --On 1-2 L via NC. Weaning as tolerated. Diuresing quite well. --Secondary to pulmonary edema from HFrEF. --Currently on PO Bumex 2 mg BID --Bilateral pleural effusions on CXR 08/06 likely secondary to CHF, improved on CXR 08/08. Appear resolved on most recent CXR. --He will need to go home oxygen. Home O2 test performed. He needs 2 L at rest and 3 L with activity. (3) Acute on chronic systolic heart failure Assessment/Plan: --TTE from 07/31 showing LVEF of 25-30%. --On metoprolol succinate 200 mg daily --Continue IV bumex 2 mg BID --Continue lisinopril. --Spironolactone added. Unfortunately Entresto and SGLT-2 not available in formulary. --Will need outpatient Cards follow up. (4) COPD (chronic obstructive pulmonary disease) Qualifiers: Emphysema type: unspecified Assessment/Plan: --Continue home inhalers. (5) Candidal intertrigo Assessment/Plan: Continue nystatin powder BID, monitor for worsening symptoms (6) Delirium due to known physiological condition Assessment/Plan: --Resolved. (7) Restlessness and agitation Assessment/Plan: -Resolved. (8) Pneumonia, unspecified organism Qualifiers: Laterality: unspecified laterality Lung location: unspecified part of lung Qualified Code(s): J18.9 - Pneumonia, unspecified organism Assessment/Plan: Resolved, ceftriax and doxy administered 08/04/23. Completed antibiotic regimen. Dispo: Medically stable. Agreeable to SNF. Will discharge when placement is found. - Current Meds Current Meds: Current Medications Generic Name Dose Route Start Last Admin Trade Name Freq PRN Reason Stop Dose Admin Apixaban 5 mg 08/02/23 11:00 08/12/23 09:34 Apixaban 5 Mg Tablet PO 5 mg BID FREDRICK Administration Aspirin 81 mg 08/08/23 09:00 08/12/23 09:34 Aspirin Ec 81 Mg Tablet PO 81 mg DAILY FREDRICK Administration Atorvastatin Calcium 10 mg 08/08/23 21:00 08/11/23 20:47 Atorvastatin 10 Mg Tablet PO 10 mg HS FREDRICK Administration Bumetanide 2 mg 08/10/23 14:00 08/12/23 05:54 Bumetanide 1 Mg Tablet PO 2 mg BIDDIURETIC FREDRICK Administration Digoxin 250 mcg 08/06/23 09:00 08/12/23 09:34 Digoxin 125 Mcg Tablet PO 250 mcg DAILY FREDRICK Administration Haloperidol 1 mg 08/09/23 10:17 08/09/23 18:41 Haloperidol 5 Mg/Ml Vial IM 1 mg Q6H PRN Administration Agitation Levalbuterol HCl 1.25 mg 08/01/23 16:46 08/02/23 14:36 Levalbuterol 1.25 Mg/3 Ml Neb INH 1.25 mg Q4H PRN Administration Shortness of Air/Wheezing Lisinopril 5 mg 08/05/23 11:00 08/12/23 09:34 Lisinopril 5 Mg Tablet PO 5 mg DAILY FREDRICK Administration Metoprolol Succinate 200 mg 08/08/23 09:00 08/12/23 09:34 Metoprolol Succinate 50 Mg Tablet PO 200 mg DAILY FREDRICK Administration Metoprolol Tartrate 5 mg 08/03/23 18:46 08/10/23 02:03 Metoprolol 5 Mg/5 Ml Vial IVP 5 mg Q6H PRN Administration heart rate > 110 for >3 minute Multivitamins/Minerals 1 tab 08/10/23 08:00 08/12/23 09:34 Multivitamin W/Minerals Tablet PO 1 tab DAILYWM FREDRICK Administration Nystatin 1 applic 08/02/23 11:00 08/12/23 09:34 Nystatin Powder 15 Gm TOP 1 applic BID FREDRICK Administration Oxycodone HCl 5 mg 08/01/23 16:34 08/08/23 06:02 Oxycodone 5 Mg Tablet PO 5 mg Q4HR PRN Administration Pain 5 to 7 Pantoprazole Sodium 40 mg 08/07/23 07:00 08/12/23 05:54 Pantoprazole 40 Mg Tablet PO 40 mg QDAC FREDRICK Administration Polyethylene Glycol 17 gm 08/03/23 09:00 08/12/23 09:35 Polyethylene Glycol 3350 17 Gm Packet PO Not Given DAILY FREDRICK Sodium Chloride 10 ml 08/01/23 17:00 08/12/23 09:35 Sodium Chloride Flush 0.9% 10 Ml Syringe IVP 10 ml 0100,0900,1700 FREDRICK Administration Sodium Chloride 10 ml 08/01/23 16:34 08/08/23 06:05 Sodium Chloride Flush 0.9% 10 Ml Syringe IVP 10 ml PRN PRN Administration NEEDED PER PROVIDER ORDERS Spironolactone 25 mg 08/08/23 09:00 08/12/23 09:34 Spironolactone 25 Mg Tablet PO 25 mg DAILY FREDRICK Administration - Lab Result Fish Bone Diagrams: 08/11/23 04:20 08/11/23 04:20 Subjective - Subjective Patient Reports: Feeling Better, Resting Comfortably, No Complaints Objective Vital Signs: Vital Signs - 24 hr 08/11/23 08/11/23 08/11/23 12:27 14:48 15:33 Temperature 36.4 C L 36.5 C Heart Rate [ 70 65 51 L Brachial] Respiratory 20 20 Rate Blood Pressure 116/64 [Left Brachial artery] Blood Pressure 83/56 L 125/60 [Right Brachial artery] O2 Saturation 95 92 If not protocol 2 3 : Oxygen Flow, liters/minute 08/11/23 08/11/23 08/11/23 18:05 19:05 20:51 Temperature 36.5 C Heart Rate [ 60 70 Brachial] Respiratory 20 Rate Blood Pressure 115/74 [Left Brachial artery] Blood Pressure 122/75 [Right Brachial artery] O2 Saturation 93 If not protocol 2 3 : Oxygen Flow, liters/minute 08/12/23 08/12/23 08/12/23 00:11 05:28 08:23 Temperature 36.4 C L 36.7 C 36.4 C L Heart Rate [ 84 91 79 Brachial] Respiratory 18 20 20 Rate Blood Pressure [Left Brachial artery] Blood Pressure 156/94 H 139/94 H 99/56 L [Right Brachial artery] O2 Saturation 94 94 94 If not protocol 2 2 2 : Oxygen Flow, liters/minute 08/12/23 09:30 Temperature Heart Rate [ Brachial] Respiratory Rate Blood Pressure [Left Brachial artery] Blood Pressure 100/70 [Right Brachial artery] O2 Saturation If not protocol : Oxygen Flow, liters/minute Oxygen O2 Source [With Activity] Oxymizer O2 Source Nasal cannula I&O (Last 24 Hrs): Intake and Output Totals x24h 08/10/23 08/11/23 08/12/23 23:59 23:59 23:59 Intake Total 1470 1600 900 Output Total 3320 2250 2300 Balance -1850 -650 -1400 General: Alert, Oriented x3, Cooperative, No acute distress Cardiovascular: Regular rate, Normal S1, Normal S2, No murmurs Respiratory: Chest non-tender, No respiratory distress, Breath sounds nml Abdomen: Normal bowel sounds, Soft, No tenderness, No hepatospenomegaly, No masses - Results Results: Laboratory Results WBC 14.0 x10^3/uL (4.8-10.8) H 08/11/23 04:20 RBC 5.06 10^6/uL (4.70-6.10) 08/11/23 04:20 Hgb 15.1 g/dL (14.0-18.0) 08/11/23 04:20 Hct 47.4 % (42.0-52.0) 08/11/23 04:20 MCV 93.7 fL (80.0-94.0) 08/11/23 04:20 MCH 29.8 pg (27.0-31.0) 08/11/23 04:20 MCHC 31.9 g/dL (32.0-36.0) L 08/11/23 04:20 RDW 16.1 % (12.0-15.0) H 08/11/23 04:20 Plt Count 193 10^3/uL (130-450) 08/11/23 04:20 MPV 11.0 fL (7.4-11.4) 08/11/23 04:20 Neut # (Auto) 9.8 10^3/uL (1.5-6.6) H 08/11/23 04:20 Lymph # (Auto) 2.4 10^3/uL (1.5-3.5) 08/11/23 04:20 [place] # (Auto) 1.5 10^3/uL (0.0-1.0) H 08/11/23 04:20 Eos # (Auto) 0.2 10^3/uL (0.0-0.7) 08/11/23 04:20 Baso # (Auto) 0.0 10^3/uL (0.0-0.1) 08/11/23 04:20 Absolute Nucleated RBC 0.00 x10^3/uL 08/11/23 04:20 Nucleated RBC % 0.0 /100WBC 08/11/23 04:20 PT 15.2 secs (9.9-12.6) H 08/01/23 14:48 INR 1.4 (0.8-1.2) H 08/01/23 14:48 Bld Gas Analysis Time 0458 08/04/23 04:50 Sample Site RIGHT BRACHIAL 08/04/23 04:50 ABG pH 7.52 (7.35-7.45) H 08/04/23 04:50 ABG pCO2 46 mmHg (34-45) H 08/04/23 04:50 ABG pO2 55 mmHg (80-100) L 08/04/23 04:50 ABG HCO3 36.2 mmol/L (22.0-26.0) H 08/04/23 04:50 ABG Total CO2 37.6 MMOL/L (21.0-29.0) H 08/04/23 04:50 ABG O2 Saturation 89 % (94-98) L 08/04/23 04:50 ABG Base Excess 11.7 mmol/L (-2.0-3.0) H 08/04/23 04:50 Harvinder Test NEGATIVE 08/04/23 04:50 VBG pH 7.494 (7.31-7.41) H 08/10/23 04:20 Ionized Calcium 1.05 mmol/L (1.15-1.33) L 08/10/23 04:20 O2 Delivery Device OXYMASK 08/04/23 04:50 O2 Liters/Min 12.00 LPM 08/04/23 04:50 FiO2 68.00 08/04/23 04:50 EPAP 4 cmH2O 08/01/23 15:52 IPAP 8 cmH2O 08/01/23 15:52 Sodium 141 mmol/L (135-145) 08/11/23 04:20 Potassium 3.9 mmol/L (3.5-4.5) 08/11/23 04:20 Chloride 100 mmol/L (101-111) L 08/11/23 04:20 Carbon Dioxide 36 mmol/L (21-32) H 08/11/23 04:20 Anion Gap 5.0 (6-13) L 08/11/23 04:20 BUN 46 mg/dL (6-20) H 08/11/23 04:20 Creatinine 1.0 mg/dL (0.6-1.3) 08/11/23 04:20 Estimated GFR (MDRD) 73 (>89) L 08/11/23 04:20 Glucose 85 mg/dL (74-104) 08/11/23 04:20 Calcium 9.0 mg/dL (8.5-10.3) 08/11/23 04:20 Phosphorus 4.9 mg/dL (2.5-5.0) 08/10/23 04:20 Magnesium 1.8 mg/dL (1.7-2.3) 08/10/23 04:20 Total Bilirubin 0.8 mg/dL (0.2-1.0) 08/01/23 14:48 AST 25 IU/L (10-42) 08/01/23 14:48 ALT 36 IU/L (10-60) 08/01/23 14:48 Alkaline Phosphatase 74 IU/L (42-121) 08/01/23 14:48 Troponin I High Sens 2.8 ng/L (2.3-19.7) 08/02/23 08:56 B-Natriuretic Peptide 419 pg/mL (5-100) H 08/11/23 04:20 Total Protein 7.2 g/dL (6.4-8.9) 08/01/23 14:48 Albumin 3.7 g/dL (3.2-5.5) 08/01/23 14:48 Globulin 3.5 g/dL (2.1-4.2) 08/01/23 14:48 Albumin/Globulin Ratio 1.1 (1.0-2.2) 08/01/23 14:48 Lipase 28 U/L (11-82) 08/01/23 14:48 TSH 0.92 uIU/mL (0.34-5.60) 08/02/23 08:56 Urine Color YELLOW 08/09/23 13:45 Urine Clarity CLEAR (CLEAR) 08/09/23 13:45 Urine pH 7.5 PH (5.0-7.5) 08/09/23 13:45 Ur Specific [place] <=1.005 (1.002-1.030) 08/09/23 13:45 Urine Protein NEGATIVE mg/dL (NEGATIVE) 08/09/23 13:45 Urine Glucose (UA) NEGATIVE mg/dL (NEGATIVE) 08/09/23 13:45 Urine Ketones NEGATIVE mg/dL (NEGATIVE) 08/09/23 13:45 Urine Occult Blood SMALL (NEGATIVE) H 08/09/23 13:45 Urine Nitrite NEGATIVE (NEGATIVE) 08/09/23 13:45 Urine Bilirubin NEGATIVE (NEGATIVE) 08/09/23 13:45 Urine Urobilinogen 1 (NORMAL) E.U./dL (NORMAL) 08/09/23 13:45 Ur Leukocyte Esterase SMALL (NEGATIVE) H 08/09/23 13:45 Urine RBC 11-25 /HPF (0-5) H 08/09/23 13:45 Urine WBC 0-3 /HPF (0-3) 08/09/23 13:45 Ur Squamous Epith Cells RARE Squamous (<= Few) 08/09/23 13:45 Urine Bacteria Few /HPF (None Seen) 08/09/23 13:45 Urine Mucus Few Strands 08/09/23 13:45 Ur Microscopic Review NOT INDICATED 08/04/23 17:53 Urine Culture Comments INDICATED 08/09/23 13:45 Nasal Adenovirus (PCR) NOT DETECTED 08/01/23 15:58 Nasal B. parapertussis DNA (PCR) NOT DETECTED 08/01/23 15:58 Nasal Coronavir 229E PCR NOT DETECTED 08/01/23 15:58 Nasal Coronavir HKU1 PCR NOT DETECTED 08/01/23 15:58 Nasal Coronavir NL63 PCR NOT DETECTED 08/01/23 15:58 Nasal Coronavir OC43 PCR NOT DETECTED 08/01/23 15:58 Nasal Enterovir/Rhinovir PCR NOT DETECTED 08/01/23 15:58 Nasal Influenza B PCR NOT DETECTED 08/01/23 15:58 Nasal Influenza A PCR NOT DETECTED 08/01/23 15:58 Nasal Parainfluen 1 PCR NOT DETECTED 08/01/23 15:58 Nasal Parainfluen 2 PCR NOT DETECTED 08/01/23 15:58 Nasal Parainfluen 3 PCR NOT DETECTED 08/01/23 15:58 Nasal Parainfluen 4 PCR NOT DETECTED 08/01/23 15:58 Nasal RSV (PCR) NOT DETECTED 08/01/23 15:58 Nasal Screen MRSA (PCR) NEGATIVE (NEGATIVE) 08/01/23 15:45 Nasal B.pertussis DNA PCR NOT DETECTED 08/01/23 15:58 Nasal C.pneumoniae (PCR) NOT DETECTED 08/01/23 15:58 Sean Human Metapneumo PCR NOT DETECTED 08/01/23 15:58 Nasal M.pneumoniae (PCR) NOT DETECTED 08/01/23 15:58 Nasal SARS-CoV-2 (PCR) NOT DETECTED 08/01/23 15:58 Urine Opiates Screen NEGATIVE (NEGATIVE) 08/01/23 16:00 Ur Buprenorphine Scrn NEGATIVE (NEGATIVE) 08/01/23 16:00 Ur Oxycodone Screen NEGATIVE (NEGATIVE) 08/01/23 16:00 Urine Methadone Screen NEGATIVE (NEGATIVE) 08/01/23 16:00 Ur Barbiturates Screen NEGATIVE (NEGATIVE) 08/01/23 16:00 Ur Tricyclics Screen NEGATIVE (NEGATIVE) 08/01/23 16:00 Ur Phencyclidine Scrn NEGATIVE (NEGATIVE) 08/01/23 16:00 Ur Amphetamine Screen NEGATIVE (NEGATIVE) 08/01/23 16:00 U Methamphetamines Scrn NEGATIVE (NEGATIVE) 08/01/23 16:00 U Benzodiazepines Scrn NEGATIVE (NEGATIVE) 08/01/23 16:00 Urine Cocaine Screen NEGATIVE (NEGATIVE) 08/01/23 16:00 U Cannabinoids Screen NEGATIVE (NEGATIVE) 08/01/23 16:00 Ur Drug Screen Comment CUTOFF CONC BELOW: 08/01/23 16:00 Ethyl Alcohol < 10.0 mg/dL 08/01/23 14:48
[2023-08-12] MEDS: acetaZOLAMIDE 250 MG TABLET PO ONE (13:18)
--- NOTE | 2023-08-13 01:36 | XRAY Report ---
PROCEDURE: Chest 1V INDICATIONS: Interval change in CHF, pleural effusion TECHNIQUE: One view of the chest was acquired. COMPARISON: Chest radiographs 08/09/2023 and 08/07/2023 FINDINGS: Surgical changes and devices: None. Lungs and pleura: Small bilateral pleural effusions with atelectasis of the lung bases decreased dave ateral pulmonary opacities and interstitial prominence. Mediastinum: Cardiac silhouette is enlarged. Bones and chest wall: No suspicious bony lesions. Overlying soft tissues appear unremarkable. IMPRESSION: Decreased bilateral pulmonary opacities. Small bilateral pleural effusions. Reviewed by: Romeo Verma MD on 08/13/2023 1:34 AM PDT Approved by: Romeo Verma MD on 08/13/2023 1:34 AM PDT Station ID: [id number]
--- NOTE | 2023-08-13 13:39 | PROVIDER PROGRESS NOTE ---
Assessment/Plan - Problem List (1) Acute on chronic systolic heart failure Assessment/Plan: (1) Acute on chronic systolic heart failure Assessment/Plan: (1) Atrial fibrillation with RVR Assessment/Plan: --Continue metoprolol and digoxin. Have switched him to metoprolol succinate 200 mg daily. Rate is well controlled. --Continue Eliquis for stroke ppx. (2) Respiratory failure Qualifiers: Chronicity: acute Respiratory failure complication: hypoxia Qualified Code(s): J96.01 - Acute respiratory failure with hypoxia Assessment/Plan: --On 1-2 L via NC. Weaning as tolerated. Diuresing quite well. --Secondary to pulmonary edema from HFrEF. --Currently on PO Bumex 2 mg BID --Bilateral pleural effusions on CXR 08/06 likely secondary to CHF, improved on CXR 08/08. Appear resolved on most recent CXR. --He will need to go home oxygen. Home O2 test performed. He needs 2 L at rest and 3 L with activity. (3) Acute on chronic systolic heart failure Assessment/Plan: --TTE from 07/31 showing LVEF of 25-30%. --On metoprolol succinate 200 mg daily --Continue IV bumex 2 mg BID --Continue lisinopril. --Spironolactone added. Unfortunately Entresto and SGLT-2 not available in formulary. --Will need outpatient Cards follow up. (4) COPD (chronic obstructive pulmonary disease) Qualifiers: Emphysema type: unspecified Assessment/Plan: --Continue home inhalers. (5) Candidal intertrigo Assessment/Plan: Continue nystatin powder BID, monitor for worsening symptoms (6) Delirium due to known physiological condition Assessment/Plan: --Resolved. (7) Restlessness and agitation Assessment/Plan: -Resolved. (8) Pneumonia, unspecified organism Qualifiers: Laterality: unspecified laterality Lung location: unspecified part of lung Qualified Code(s): J18.9 - Pneumonia, unspecified organism Assessment/Plan: Resolved, ceftriax and doxy administered 08/04/23. Completed antibiotic regimen. Dispo: Medically stable. Pending discharge disposition. SNF vs home. He is on Bumex 2 mg BID and appropriate cardiac medications. Will need outpatient Cardiology. - Current Meds Current Meds: Current Medications Generic Name Dose Route Start Last Admin Trade Name Freq PRN Reason Stop Dose Admin Apixaban 5 mg 08/02/23 11:00 08/13/23 08:15 Apixaban 5 Mg Tablet PO 5 mg BID FREDRICK Administration Aspirin 81 mg 08/08/23 09:00 08/13/23 08:16 Aspirin Ec 81 Mg Tablet PO 81 mg DAILY FREDRICK Administration Atorvastatin Calcium 10 mg 08/08/23 21:00 08/12/23 20:21 Atorvastatin 10 Mg Tablet PO 10 mg HS FREDRICK Administration Bumetanide 2 mg 08/10/23 14:00 08/12/23 13:18 Bumetanide 1 Mg Tablet PO 2 mg BIDDIURETIC FREDRICK Administration Digoxin 250 mcg 08/06/23 09:00 08/13/23 08:15 Digoxin 125 Mcg Tablet PO 250 mcg DAILY FREDRICK Administration Haloperidol 1 mg 08/09/23 10:17 08/13/23 02:02 Haloperidol 5 Mg/Ml Vial IM 1 mg Q6H PRN Administration Agitation Levalbuterol HCl 1.25 mg 08/01/23 16:46 08/02/23 14:36 Levalbuterol 1.25 Mg/3 Ml Neb INH 1.25 mg Q4H PRN Administration Shortness of Air/Wheezing Lisinopril 5 mg 08/05/23 11:00 08/13/23 08:17 Lisinopril 5 Mg Tablet PO 5 mg DAILY FREDRICK Administration Metoprolol Succinate 200 mg 08/08/23 09:00 08/13/23 08:17 Metoprolol Succinate 50 Mg Tablet PO 200 mg DAILY FREDRICK Administration Metoprolol Tartrate 5 mg 08/03/23 18:46 08/10/23 02:03 Metoprolol 5 Mg/5 Ml Vial IVP 5 mg Q6H PRN Administration heart rate > 110 for >3 minute Multivitamins/Minerals 1 tab 08/10/23 08:00 08/13/23 08:15 Multivitamin W/Minerals Tablet PO 1 tab DAILYWM FREDRICK Administration Nystatin 1 applic 08/02/23 11:00 08/13/23 08:17 Nystatin Powder 15 Gm TOP 1 applic BID FREDRICK Administration Oxycodone HCl 5 mg 08/01/23 16:34 08/13/23 13:17 Oxycodone 5 Mg Tablet PO 5 mg Q4HR PRN Administration Pain 5 to 7 Pantoprazole Sodium 40 mg 08/07/23 07:00 08/13/23 08:16 Pantoprazole 40 Mg Tablet PO 40 mg QDAC FREDRICK Administration Polyethylene Glycol 17 gm 08/03/23 09:00 08/13/23 08:17 Polyethylene Glycol 3350 17 Gm Packet PO 17 gm DAILY FREDRICK Administration Sodium Chloride 10 ml 08/01/23 17:00 08/13/23 08:18 Sodium Chloride Flush 0.9% 10 Ml Syringe IVP 10 ml 0100,0900,1700 FREDRICK Administration Sodium Chloride 10 ml 08/01/23 16:34 08/12/23 22:00 Sodium Chloride Flush 0.9% 10 Ml Syringe IVP 10 ml PRN PRN Administration NEEDED PER PROVIDER ORDERS Spironolactone 25 mg 08/08/23 09:00 08/13/23 08:17 Spironolactone 25 Mg Tablet PO 25 mg DAILY FREDRICK Administration - Lab Result Fish Bone Diagrams: 08/11/23 04:20 08/11/23 04:20 - Additional Planning My Orders: My Active Orders 08/13/23 21:00 QUEtiapine [SEROquel] 25 mg PO QPM Subjective - Subjective Patient Reports: Feeling Better, Resting Comfortably, No Complaints Objective Vital Signs: Vital Signs - 24 hr 08/12/23 08/12/23 08/12/23 15:48 19:30 19:31 Temperature 36.4 C L 36.4 C L Heart Rate [ 61 72 Brachial] Respiratory 20 20 Rate Blood Pressure 116/60 [Left Brachial artery] Blood Pressure 93/54 L [Right Brachial artery] O2 Saturation 93 95 If not protocol 2 2 2 : Oxygen Flow, liters/minute 08/12/23 08/13/23 08/13/23 23:25 03:51 08:43 Temperature 36.5 C 36.5 C 36.5 C Heart Rate [ 65 67 78 Brachial] Respiratory 20 20 18 Rate Blood Pressure [Left Brachial artery] Blood Pressure 102/71 105/63 110/69 [Right Brachial artery] O2 Saturation 95 94 94 If not protocol 2 2 2 : Oxygen Flow, liters/minute 08/13/23 12:50 Temperature 36.3 C L Heart Rate [ 83 Brachial] Respiratory 20 Rate Blood Pressure [Left Brachial artery] Blood Pressure 82/55 L [Right Brachial artery] O2 Saturation 92 If not protocol 2 : Oxygen Flow, liters/minute Oxygen O2 Source [With Activity] Oxymizer O2 Source Nasal cannula I&O (Last 24 Hrs): Intake and Output Totals x24h 08/11/23 08/12/23 08/13/23 23:59 23:59 23:59 Intake Total 1600 1850 1040 Output Total 2250 3750 1300 Balance -650 -1900 -260 General: Alert, Oriented x3, Cooperative, No acute distress Neuro: Alert, CN 2-12 Grossly Intact, Oriented Times 3 Cardiovascular: Regular rate, Normal S1, Normal S2 Respiratory: Chest non-tender, No respiratory distress, Breath sounds nml Abdomen: Normal bowel sounds, Soft, No tenderness, No hepatospenomegaly, No masses - Results Results: Laboratory Results WBC 14.0 x10^3/uL (4.8-10.8) H 08/11/23 04:20 RBC 5.06 10^6/uL (4.70-6.10) 08/11/23 04:20 Hgb 15.1 g/dL (14.0-18.0) 08/11/23 04:20 Hct 47.4 % (42.0-52.0) 08/11/23 04:20 MCV 93.7 fL (80.0-94.0) 08/11/23 04:20 MCH 29.8 pg (27.0-31.0) 08/11/23 04:20 MCHC 31.9 g/dL (32.0-36.0) L 08/11/23 04:20 RDW 16.1 % (12.0-15.0) H 08/11/23 04:20 Plt Count 193 10^3/uL (130-450) 08/11/23 04:20 MPV 11.0 fL (7.4-11.4) 08/11/23 04:20 Neut # (Auto) 9.8 10^3/uL (1.5-6.6) H 08/11/23 04:20 Lymph # (Auto) 2.4 10^3/uL (1.5-3.5) 08/11/23 04:20 Marion # (Auto) 1.5 10^3/uL (0.0-1.0) H 08/11/23 04:20 Eos # (Auto) 0.2 10^3/uL (0.0-0.7) 08/11/23 04:20 Baso # (Auto) 0.0 10^3/uL (0.0-0.1) 08/11/23 04:20 Absolute Nucleated RBC 0.00 x10^3/uL 08/11/23 04:20 Nucleated RBC % 0.0 /100WBC 08/11/23 04:20 PT 15.2 secs (9.9-12.6) H 08/01/23 14:48 INR 1.4 (0.8-1.2) H 08/01/23 14:48 Bld Gas Analysis Time 0458 08/04/23 04:50 Sample Site RIGHT BRACHIAL 08/04/23 04:50 ABG pH 7.52 (7.35-7.45) H 08/04/23 04:50 ABG pCO2 46 mmHg (34-45) H 08/04/23 04:50 ABG pO2 55 mmHg (80-100) L 08/04/23 04:50 ABG HCO3 36.2 mmol/L (22.0-26.0) H 08/04/23 04:50 ABG Total CO2 37.6 MMOL/L (21.0-29.0) H 08/04/23 04:50 ABG O2 Saturation 89 % (94-98) L 08/04/23 04:50 ABG Base Excess 11.7 mmol/L (-2.0-3.0) H 08/04/23 04:50 Harvinder Test NEGATIVE 08/04/23 04:50 VBG pH 7.494 (7.31-7.41) H 08/10/23 04:20 Ionized Calcium 1.05 mmol/L (1.15-1.33) L 08/10/23 04:20 O2 Delivery Device OXYMASK 08/04/23 04:50 O2 Liters/Min 12.00 LPM 08/04/23 04:50 FiO2 68.00 08/04/23 04:50 EPAP 4 cmH2O 08/01/23 15:52 IPAP 8 cmH2O 08/01/23 15:52 Sodium 141 mmol/L (135-145) 08/11/23 04:20 Potassium 3.9 mmol/L (3.5-4.5) 08/11/23 04:20 Chloride 100 mmol/L (101-111) L 08/11/23 04:20 Carbon Dioxide 36 mmol/L (21-32) H 08/11/23 04:20 Anion Gap 5.0 (6-13) L 08/11/23 04:20 BUN 46 mg/dL (6-20) H 08/11/23 04:20 Creatinine 1.0 mg/dL (0.6-1.3) 08/11/23 04:20 Estimated GFR (MDRD) 73 (>89) L 08/11/23 04:20 Glucose 85 mg/dL (74-104) 08/11/23 04:20 Calcium 9.0 mg/dL (8.5-10.3) 08/11/23 04:20 Phosphorus 4.9 mg/dL (2.5-5.0) 08/10/23 04:20 Magnesium 1.8 mg/dL (1.7-2.3) 08/10/23 04:20 Total Bilirubin 0.8 mg/dL (0.2-1.0) 08/01/23 14:48 AST 25 IU/L (10-42) 08/01/23 14:48 ALT 36 IU/L (10-60) 08/01/23 14:48 Alkaline Phosphatase 74 IU/L (42-121) 08/01/23 14:48 Troponin I High Sens 2.8 ng/L (2.3-19.7) 08/02/23 08:56 B-Natriuretic Peptide 419 pg/mL (5-100) H 08/11/23 04:20 Total Protein 7.2 g/dL (6.4-8.9) 08/01/23 14:48 Albumin 3.7 g/dL (3.2-5.5) 08/01/23 14:48 Globulin 3.5 g/dL (2.1-4.2) 08/01/23 14:48 Albumin/Globulin Ratio 1.1 (1.0-2.2) 08/01/23 14:48 Lipase 28 U/L (11-82) 08/01/23 14:48 TSH 0.92 uIU/mL (0.34-5.60) 08/02/23 08:56 Urine Color YELLOW 08/09/23 13:45 Urine Clarity CLEAR (CLEAR) 08/09/23 13:45 Urine pH 7.5 PH (5.0-7.5) 08/09/23 13:45 Ur Specific [place] <=1.005 (1.002-1.030) 08/09/23 13:45 Urine Protein NEGATIVE mg/dL (NEGATIVE) 08/09/23 13:45 Urine Glucose (UA) NEGATIVE mg/dL (NEGATIVE) 08/09/23 13:45 Urine Ketones NEGATIVE mg/dL (NEGATIVE) 08/09/23 13:45 Urine Occult Blood SMALL (NEGATIVE) H 08/09/23 13:45 Urine Nitrite NEGATIVE (NEGATIVE) 08/09/23 13:45 Urine Bilirubin NEGATIVE (NEGATIVE) 08/09/23 13:45 Urine Urobilinogen 1 (NORMAL) E.U./dL (NORMAL) 08/09/23 13:45 Ur Leukocyte Esterase SMALL (NEGATIVE) H 08/09/23 13:45 Urine RBC 11-25 /HPF (0-5) H 08/09/23 13:45 Urine WBC 0-3 /HPF (0-3) 08/09/23 13:45 Ur Squamous Epith Cells RARE Squamous (<= Few) 08/09/23 13:45 Urine Bacteria Few /HPF (None Seen) 08/09/23 13:45 Urine Mucus Few Strands 08/09/23 13:45 Ur Microscopic Review NOT INDICATED 08/04/23 17:53 Urine Culture Comments INDICATED 08/09/23 13:45 Nasal Adenovirus (PCR) NOT DETECTED 08/01/23 15:58 Nasal B. parapertussis DNA (PCR) NOT DETECTED 08/01/23 15:58 Nasal Coronavir 229E PCR NOT DETECTED 08/01/23 15:58 Nasal Coronavir HKU1 PCR NOT DETECTED 08/01/23 15:58 Nasal Coronavir NL63 PCR NOT DETECTED 08/01/23 15:58 Nasal Coronavir OC43 PCR NOT DETECTED 08/01/23 15:58 Nasal Enterovir/Rhinovir PCR NOT DETECTED 08/01/23 15:58 Nasal Influenza B PCR NOT DETECTED 08/01/23 15:58 Nasal Influenza A PCR NOT DETECTED 08/01/23 15:58 Nasal Parainfluen 1 PCR NOT DETECTED 08/01/23 15:58 Nasal Parainfluen 2 PCR NOT DETECTED 08/01/23 15:58 Nasal Parainfluen 3 PCR NOT DETECTED 08/01/23 15:58 Nasal Parainfluen 4 PCR NOT DETECTED 08/01/23 15:58 Nasal RSV (PCR) NOT DETECTED 08/01/23 15:58 Nasal Screen MRSA (PCR) NEGATIVE (NEGATIVE) 08/01/23 15:45 Nasal B.pertussis DNA PCR NOT DETECTED 08/01/23 15:58 Nasal C.pneumoniae (PCR) NOT DETECTED 08/01/23 15:58 Sean Human Metapneumo PCR NOT DETECTED 08/01/23 15:58 Nasal M.pneumoniae (PCR) NOT DETECTED 08/01/23 15:58 Nasal SARS-CoV-2 (PCR) NOT DETECTED 08/01/23 15:58 Urine Opiates Screen NEGATIVE (NEGATIVE) 08/01/23 16:00 Ur Buprenorphine Scrn NEGATIVE (NEGATIVE) 08/01/23 16:00 Ur Oxycodone Screen NEGATIVE (NEGATIVE) 08/01/23 16:00 Urine Methadone Screen NEGATIVE (NEGATIVE) 08/01/23 16:00 Ur Barbiturates Screen NEGATIVE (NEGATIVE) 08/01/23 16:00 Ur Tricyclics Screen NEGATIVE (NEGATIVE) 08/01/23 16:00 Ur Phencyclidine Scrn NEGATIVE (NEGATIVE) 08/01/23 16:00 Ur Amphetamine Screen NEGATIVE (NEGATIVE) 08/01/23 16:00 U Methamphetamines Scrn NEGATIVE (NEGATIVE) 08/01/23 16:00 U Benzodiazepines Scrn NEGATIVE (NEGATIVE) 08/01/23 16:00 Urine Cocaine Screen NEGATIVE (NEGATIVE) 08/01/23 16:00 U Cannabinoids Screen NEGATIVE (NEGATIVE) 08/01/23 16:00 Ur Drug Screen Comment CUTOFF CONC BELOW: 08/01/23 16:00 Ethyl Alcohol < 10.0 mg/dL 08/01/23 14:48
[2023-08-13] MEDS: QUEtiapine 25 MG TABLET PO SCH (20:25)
[2023-08-14 06:02] LABS: BASOPHILS % (AUTO) 0.2 %; EOSINOPHILS # (AUTO) 0.3 10^3/uL (0.0-0.7); EOSINOPHILS % (AUTO) 2.5 %; HCT - HEMATOCRIT 43.2 % (42.0-52.0); HGB - HEMOGLOBIN 14.2 g/dL (14.0-18.0); LYMPHOCYTES # (AUTO) 1.9 10^3/uL (1.5-3.5); LYMPHOCYTES % (AUTO) 18.8 %; MEAN CORPUSCULAR HEMOGLOBIN 30.7 pg (27.0-31.0); MEAN CORPUSCULAR HGB CONC 32.9 g/dL (32.0-36.0); MEAN CORPUSCULAR VOLUME 93.3 fL (80.0-94.0); MEAN PLATELET VOLUME 11.1 fL (7.4-11.4); MONOCYTES # (AUTO) 0.7 10^3/uL (0.0-1.0); MONOCYTES % (AUTO) 6.9 %; NEUTROPHILS # (AUTO) 7.1 10^3/uL (1.5-6.6); NEUTROPHILS % (AUTO) 70.5 %; PLT - PLATELET COUNT 152 10^3/uL (130-450); RED BLOOD COUNT 4.63 10^6/uL (4.70-6.10); RED CELL DISTRIBUTION WIDTH 15.9 % (12.0-15.0); WHITE BLOOD COUNT 10.1 x10^3/uL (4.8-10.8)
[2023-08-14 06:32] LABS: CALCIUM 8.4 mg/dL (8.5-10.3); CREATININE 0.8 mg/dL (0.6-1.3)
[2023-08-14] MEDS: BUMETANIDE 1 MG TABLET PO SCH (09:06)
--- NOTE | 2023-08-14 11:45 | Discharge Plan ---
Discharge Plan Problem Reviewed?: Yes Disposition: Home Health Service Condition: Fair Prescriptions: Spironolactone [Aldactone] 25 mg PO DAILY #30 tab Bumetanide [Bumex] 2 mg PO BIDDIURETIC #60 tab Apixaban [Eliquis] 5 mg PO BID #60 tab Digoxin [Lanoxin] 250 mcg PO DAILY #30 tab Metoprolol Succinate [Toprol Xl] 200 mg PO DAILY #30 tab lisinopriL [Zestril] 5 mg PO DAILY #30 tab Diet: Low Sodium Activity Restrictions: Activity as Tolerated Shower Restrictions: No Driving Restrictions: Yes (no driving) Assistance Devices: [facility] Concerns: You came to the emergency room with progressive cough, chest congestion, and shortness of breath. You know that you have a history of heart disease, emphysema and had a recent repair of an aortic aneurysm. Because of your emphysema you were supposed to be on oxygen. You were discharged from the hospital to home with. But there was no follow-up and the oxygen was never delivered to your house so you have been without oxygen this entire past year. You were so sick that you had almost stop breathing and we needed to place you into the ICU and use a mask call BiPAP to allow you to breathe. As we stabilize your oxygen, and stabilize your carbon dioxide, we found you to have severe, severe congestive heart failure. You tell us that used to have super skinny legs, and do what ever you wanted to around the house. But in the last few weeks your legs were getting progressively more swollen. In working that up, an ultrasound of your heart shows you to have a very severely reduced pump function. When in normal heart beats, it fills with blood and then pumps out 60% of the blood forward into your body. In your case you are pumping out only 25%. That means blood goes into your heart and lungs and stays there and backs up the system. It makes you very short of breath, low in oxygen. And causes you to retain quite a bit of water weight. That is why your legs were so severely swollen. The most you weighed was 195 pounds. We gave you medicine that made you urinate very briskly. And that brought you down to 177 pounds on the day of discharge. You also have a large prostate. It does not allow you to pee very well. So you retain urine. We have a Panchal in place to help you urinate better. Plan of Treatment: 1. We think we have any down to your dry weight of 177 pounds. We are giving you a water pill called Bumex to take 2 mg tablets, 1 tablet twice a day. A lot of patients complain about having to pee so much into the nighttime. It really disrupts their sleep. So if you find that happening you can change your Bumex to 1-1/2 tablets in the morning instead of 1 tablet twice a day. 2. In addition to the Bumex To make you urinate, you are on 3 other medicines for heart failure. We usually only use 1 medicine to slow down your heart rate. It is called Coreg. But in spite of using the Coreg, your heart beat too fast and we had to have you on Coreg and digoxin to slow down your heart rate. The third medicine is Zastrow. It is a blood pressure medicine but it allows the pressure to be reduced in your body so that you are heart can pump more blood forward. 3. Please see your primary care provider in follow-up. They need to see you to weigh you, and check blood work to make sure that your past potassium, magnesium and kidney function are okay on these medications. Make sure you stay on a low-salt diet. Do not eat salt more than 2000 mg a day. Weigh yourself daily. If you gain more than 3 pounds you need to take an extra Bumex tablet. But only for that day. Once you get back down to 177 pounds, you can go back to 1-1/2 Bumex tablets in the morning or 1 tablet twice a day. 4. Your primary care provider also needs to refer you to cardiology. Because your heart pump function is below 25%, you would be a candidate for a defibrillator. People who have ejection fractions below 30% are at risk for sudden because their heart will go into a very lethal rhythm. You were doing this while you are in the hospital once or twice. But then your rhythm stabilized. Nevertheless, you will be a candidate for defibrillator and should be seen in follow-up for that. 5. We did think you might be a candidate for a residential. You are still weak. Need help at home with even standby assist for bathing, walking. But you are too high functioning to go to a residential. And asked that she will be going home with home health physical therapy and Occupational Therapy. We are aware that you have limited financial resources. So if you did need to go to a residential or need care in the home, you do not have the money to pay for it. We would like you to [facility] working with [facility] and doing the paperwork required that might allow you to get more financial resources from the [facility]. 6. As part of your planning for the future, please, please, please establish a DURABLE POWER OF SMOKING TOBACCO CUTTER OPERATOR. If you were to be unconscious, who speaks for you. Who do you feel would be your advocate. You need to identify that person within your family and let us know who that is. But make it legal by filling out a piece of paper with a durable power of ip technology transactions attorney designated. We are worried about this because you do have episodes of what we call "sundowning". At night you get very confused. You do not know where you are. You are hallucinating. Then you recover during the day. And if you ever were to lose enough memory that you could no longer make decisions, we would like someone to make decisions for you. Care Goals: You would like to return to home. That is understandable. But we can only emphasize that you are going to need more help. I do not know how you are going to make that happen but stay in contact with the [facility], social work, your children for planning purposes. Assessment: Currently the patient is alert and oriented to person, place, and understands why he is in the hospital but poor insight. No Smoking: If you smoke, Please STOP! Call for help.
--- NOTE | 2023-08-14 11:57 | DISCHARGE SUMMARY ---
Discharge Summary Admit Date: 08/01/23 Discharge Date: 08/14/23 Discharging Provider: Idalia Arias MD Primary Care Provider: Park Contreras [facility] Code Status: Do Not Attempt Resuscitation Condition at Discharge: Fair Discharge Disposition: Home Health Service - DIAGNOSES Discharge Diagnoses with Status of Each Condition: 1. Acute on chronic heart failure with reduced ejection fraction, not a candidate for SGLT-2 due to #6 2. Atrial fibrillation with RVR 3. Acute respiratory failure with hypoxia and hypercapnia 4. Restlessness and agitation 5. COPD with exacerbation 6. Candidal intertrigo 7. Pneumonia 8. History of endovascular stent graft for abdominal aortic aneurysm 9. Generalized weakness requiring physical therapy - HPI History of Present Illness: 73yo male reports that morning of 07/31 he woke-up as usual but while drinking his coffee he "felt off", weak, had SOB while sitting which typically only occurs with activity and his noticed and called EMS. Pt said "they were asking to many questions" and felt overwhelmed and EMS arrived. Pt remembers all events that occurred until present. He also reports lower extremities b/l more swollen than usual x2-3 weeks, wears compression socks in the day, swelling is typically down in PM, but were very swollen at wake-up on day of admission. - Past Medical History Cardiovascular: reports: Hypertension, High cholesterol, Coronary artery disease, Other (AAA) Respiratory: reports: COPD, Shortness of breath Neuro: denies: Headaches, Migraines GI: reports: GERD (ocasionally with certain foods) : reports: Nocturia (2-3x night). denies: Kidney stones HEENT: reports: Other (had cataracts removed x1.5 yrs). denies: Chronic vision loss Psych: reports: None Musculoskeletal: denies: Gout Derm: denies: Eczema, Psoriasis - Past Surgical History Cardiovascular: reports: Cardiac catheterization, AAA - HOSPITAL COURSE Hospital Course: Greater than 30 minutes was spent coordinating discharge this document was made in part using voice recognition software. While efforts are made to proofread this document, sound alike and grammatical errors may occur. - ALLERGIES Allergies/Adverse Reactions: Allergies Allergy/AdvReac Type Severity Reaction Status Date / Time No Known Drug Allergies Allergy Verified 08/01/23 14:36 - MEDICATIONS Home Medications: Ambulatory Orders Medication Instructions Recorded Confirmed Albuterol Sulf [Ventolin Hfa 1 - 2 puffs INH Q4HR PRN #1 inhaler 01/23/20 08/02/23 Inhaler] Aspirin EC [Ecotrin] 81 mg PO DAILY 08/01/23 08/02/23 Atorvastatin [Lipitor] 10 mg PO HS 08/01/23 08/02/23 Cetirizine [ZyrTEC] 10 mg PO DAILY 08/01/23 08/02/23 Fluticasone Propionate 2 spray NICOLE DAILY PRN 08/01/23 08/02/23 Omeprazole 40 mg PO BID 08/01/23 08/02/23 Potassium Chloride 10 meq PO DAILY 08/01/23 08/02/23 Ascorbic Acid [Vitamin C] 1,000 mg PO DAILY 08/02/23 08/02/23 Cholecalciferol (Vitamin D3) 50 mcg PO DAILY 08/02/23 08/02/23 [Vitamin D3] Cyanocobalamin (Vitamin B-12) 1,000 mcg PO DAILY 08/02/23 08/02/23 [Vitamin B-12] Fluticasone Propion/Salmeterol 1 puffs INH BID 08/02/23 08/02/23 [Wixela 500-50 Inhub] Folic Acid 0.4 mg PO DAILY 08/02/23 08/02/23 Multivitamin [Theragran] 1 each PO DAILY 08/02/23 08/02/23 Apixaban [Eliquis] 5 mg PO BID #60 tab 08/11/23 Bumetanide [Bumex] 2 mg PO BIDDIURETIC #60 tab 08/11/23 Digoxin [Lanoxin] 250 mcg PO DAILY #30 tab 08/11/23 Metoprolol Succinate [Toprol Xl] 200 mg PO DAILY #30 tab 08/11/23 Spironolactone [Aldactone] 25 mg PO DAILY #30 tab 08/11/23 lisinopriL [Zestril] 5 mg PO DAILY #30 tab 08/11/23 - LABS Result Diagrams: 08/14/23 05:43 08/14/23 05:43
[2023-08-14 15:45] VITALS: BP 102/67; O2SAT 99
== END 2023-08-14 17:20 | disposition home health service (06) | DRG 291 ==
LOC: EDUNIT# → ED 14:15 → ICU 16:36 → MS2 08-10 12:59
PROVIDERS: ADMIT Specialist; ATTEND Specialist
DX: I11.0 Hypertensive heart disease with heart failure (principal); R00.0 Tachycardia, unspecified; R53.83 Other fatigue; M79.89 Other specified soft tissue disorders; R05.3 Chronic cough; J44.9 Chronic obstructive pulmonary disease, unspecified; I50.23 Acute on chronic systolic (congestive) heart failure; J96.01 Acute respiratory failure with hypoxia; I50.9 Heart failure, unspecified; Z20.822 Contact with and (suspected) exposure to COVID-19; J18.9 Pneumonia, unspecified organism; J96.02 Acute respiratory failure with hypercapnia; J44.1 Chronic obstructive pulmonary disease with (acute) exacerbation; J44.0 Chronic obstructive pulmonary disease with (acute) lower respiratory infection; F05 Delirium due to known physiological condition; I48.91 Unspecified atrial fibrillation; R45.1 Restlessness and agitation; L30.4 Erythema intertrigo; B37.9 Candidiasis, unspecified; R53.1 Weakness; E78.00 Pure hypercholesterolemia, unspecified; I25.10 Atherosclerotic heart disease of native coronary artery without angina pectoris; K21.9 Gastro-esophageal reflux disease without esophagitis; I34.0 Nonrheumatic mitral (valve) insufficiency; Z63.4 Disappearance and death of family member; Z66 Do not resuscitate; Z79.01 Long term (current) use of anticoagulants; Z79.82 Long term (current) use of aspirin; Z79.899 Other long term (current) drug therapy; Z82.49 Family history of ischemic heart disease and other diseases of the circulatory system; Z83.3 Family history of diabetes mellitus; Z87.891 Personal history of nicotine dependence
CPT/HCPCS: 36415; 36600; 51702; 71045; 71275; 80048; 80053; 80306; 81001; 81003; 82310; 82330; 82803; 83690; 83735; 83880; 84100; 84132; 84443; 84484; 85025; 85610; 87040; 87086; 87150; 87633; 93005; 93307; 94640; 94660; 94761; 96365; 96375; 97116; 97162; 97530; 99285; A9270; G0480; P9047; Q9967; 82077